=== PATIENT | male | born 1980 | race Caucasian/White ===

== ENCOUNTER 2017-04-18 05:17 | Inpatient (IN) | payer OTHER ==
[2017-04-18] VITALS (18 sets, daily range): BP systolic 96–141; BP diastolic 53–87; PULSE 103–133; RESP 16; TEMP 97.6–101.1; O2SAT 98–100
[~2017-04-18] VITALS: Ht 175.3 cm; Wt 73.8 kg
[2017-04-18] MEDS ORDERED: PROPOFOL 1000 MG/100 ML INJ 100 ML ONE ×2 (05:28→08:16)
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
[2017-04-18 06:17] LABS: BASOPHIL # 0.2 TH/MM3 (0-0.2); BASOPHIL % 0.6 % (0.0-2.0); EOSINOPHIL # 0.6 TH/MM3 (0-0.4); EOSINOPHIL % 1.8 % (0.0-4.0); HEMATOCRIT 44.8 % (39.0-51.0); I-STAT POTASSIUM 3.6 MMOL/L (3.5-4.9); LYMPH % 32.7 % (9.0-44.0); LYMPHOCYTE # 11.6 TH/MM3 (1.0-4.8); MEAN CELL VOLUME 85.8 FL (80.0-100.0); MEAN CORPUSCULAR HEMOGLOBIN 28.6 PG (27.0-34.0); MEAN CORPUSCULAR HGB CONC 33.3 % (32.0-36.0); MONO % 5.6 % (0.0-8.0); NEUT % 59.3 % (16.0-70.0); PLATELET COUNT 400 TH/MM3 (150-450); RED BLOOD COUNT 5.22 MIL/MM3 (4.50-5.90); RED CELL DISTRIBUTION WIDTH 13.2 % (11.6-17.2); WHITE BLOOD COUNT 35.4 TH/MM3 (4.0-11.0)
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
[2017-04-18 06:21] LABS: HEMO FLAGS AUTO DIFF
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
[2017-04-18 06:28] LABS: APTT (PATIENT) 23.7 SEC (24.3-30.1); PROTHROMBIN TIME - PATIENT 11.1 SEC (9.8-11.6)
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
[2017-04-18] MEDS ORDERED: MORPHINE SULFATE 8 MG/ML INJ ONE (06:34)
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
[2017-04-18] MEDS ORDERED: IOHEXOL 350 MG/ML 10 ML VIAL (for RAD DIAG) IVCONTRAST ONE (06:40)
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
[2017-04-18] MEDS ORDERED: MISCELLANEOUS NURSING INFORMATION XX SCH (06:45)
[2017-04-18] MEDS ORDERED: ONDANSETRON HCL 4 MG/2 ML VIAL IV PUSH PRN (06:45)
[2017-04-18] MEDS ORDERED: PROPOFOL 1000 MG/100 ML INJ 100 ML IV PRN (06:45)
[2017-04-18] MEDS ORDERED: BISACODYL 10 MG SUPP RECTAL PRN (06:45)
[2017-04-18] MEDS ORDERED: CHLORHEXIDINE GLUCONATE 2 % 1 PACK (2 CLOTHS) TOP PRN (06:45)
[2017-04-18] MEDS ORDERED: SENNOSIDES 8.6 MG TAB PO PRN (06:45)
[2017-04-18] MEDS ORDERED: MAGNESIUM HYDROXIDE SUSP 30 ML CUP PO PRN (06:45)
[2017-04-18] MEDS ORDERED: LACTULOSE SYRUP 20 GM/30 ML CUP PO PRN (06:45)
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
[2017-04-18 07:20] LABS: BANDS 10 % (0-6); METAMYELOCYTES 2 % (0-1); NEUTROPHIL # MANUAL DIFF 22.3 TH/MM3 (1.8-7.7); POLYS (SEG NEUTROPHILS) 51 % (16-70); WBC DIFF SAMPLE 100
[2017-04-18 07:21] LABS: PLATELET ESTIMATE SMEAR NORMAL (NORMAL); PLATELET MORPHOLOGY NORMAL (NORMAL); SCAN/DIFF FINAL DIFF MANUAL
[2017-04-18] MEDS ORDERED: SODIUM BICARBONATE 8.4% INJ 50 MEQ/50 ML SYR ONE (07:37)
[2017-04-18 07:38] LABS: BLOOD GAS BASE EXCESS -6.6 mmol/L (-2-2); BLOOD GAS CARBOXYHEMOGLOBIN 0.9 % (0-4); BLOOD GAS HCO3 20 mmol/L (22-26); BLOOD GAS METHEMOGLOBIN 1.7 % (0-2); BLOOD GAS O2 HGB SATURATION 97 % (90-100); BLOOD GAS OXYGEN CONTENT 16.3 Vol % (12.0-20.0); BLOOD GAS PCO2 47 mmHg (38-42); BLOOD GAS PO2 300 mmHg (61-120); BLOOD GAS TOTAL HGB 11.5 G/DL (12.0-16.0); CRITICAL VALUE YES; TEMP CORR TO 98.6
[2017-04-18 07:39] LABS: STAT YES
[2017-04-18 07:47] LABS: BASOPHIL % 0.3 % (0.0-2.0); EOSINOPHIL # 0.1 TH/MM3 (0-0.4); EOSINOPHIL % 0.4 % (0.0-4.0); HEMATOCRIT 34.6 % (39.0-51.0); HEMO FLAGS DIFF FINAL; LYMPHOCYTE # 2.3 TH/MM3 (1.0-4.8); MEAN CELL VOLUME 86.9 FL (80.0-100.0); MEAN CORPUSCULAR HGB CONC 33.4 % (32.0-36.0); MONO % 7.3 % (0.0-8.0); PLATELET COUNT 159 TH/MM3 (150-450); RED BLOOD COUNT 3.98 MIL/MM3 (4.50-5.90); RED CELL DISTRIBUTION WIDTH 13.7 % (11.6-17.2); WHITE BLOOD COUNT 16.6 TH/MM3 (4.0-11.0)
[2017-04-18 07:55] LABS: APTT (PATIENT) 24.3 SEC (24.3-30.1); INTERNATIONAL NORMALIZED RATIO 1.1 RATIO; PROTHROMBIN TIME - PATIENT 12.2 SEC (9.8-11.6)
[2017-04-18 08:00] LABS: BICARBONATE 21.5 MEQ/L (21.0-32.0); POTASSIUM 3.8 MEQ/L (3.5-5.1)
[2017-04-18 08:16] LABS: CALCIUM-PROTEIN CORRECTED 7.6 MG/DL (8.5-10.1)
[2017-04-18] MEDS: PROPOFOL 1000 MG/100 ML IV PRN ×3 (08:30→16:00)
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
[2017-04-18] MEDS: SODIUM CHLOR 0.9% 1000 ML INJ 1,000 ML IV SCH ×2 (08:45→16:36)
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
[2017-04-18] MEDS ORDERED: INSULIN HUMAN REGULAR 1,000 UNITS/10 ML VIAL ONE (08:51)
[2017-04-18] MEDS: DOCUSATE SODIUM 50 MG/SENNA 8.6 MG TAB PO SCH (09:00)
[2017-04-18] MEDS ORDERED: DO NOT ADM ANY ANTICOAGULANT DRUGS PRN (09:30)
--- NOTE | 2017-04-18 10:01 | RADRPT ---
EXAM DATE/TIME: 04/18/2017 09:03 [facility] COMPARISON: CHEST SINGLE AP, April 18, 2017, 5:21. INDICATIONS : Evaluate for post intubation. MEDICAL HISTORY : None. SURGICAL HISTORY : None. ENCOUNTER: Subsequent ACUITY: 1 day PAIN SCORE: Non-responsive. LOCATION: Bilateral chest FINDINGS: ET tube, nasogastric tube and left chest tube in good position. No pneumothorax. Right clavicle fra cture.. CONCLUSION: Support apparatus in good position. No pneumothorax. Asif Guerra MD FACR on April 18, 2017 at 9:59 Board Certified Radiologist. This report was verified electronically.
[2017-04-18] MEDS ORDERED: fentaNYL DRIP 250 ML IV PRN (10:15)
[2017-04-18] MEDS ORDERED: INSULIN REGULAR (IV INFUSION) 100 UNITS in SODIUM CHLORIDE 0.9% INJ 99 ML IV PRN (10:30)
[2017-04-18] MEDS ORDERED: DEXTROSE 50% IN WATER 50 ML VIAL(D50) IV PUSH PRN (10:45)
[2017-04-18] MEDS ORDERED: SODIUM CHLOR 0.9% 1000 ML INJ 1,000 ML IV ONE ×3 (10:45→16:45)
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
[2017-04-18] MEDS ORDERED: fentaNYL CITRATE 250 MCG/5 ML AMP IV PUSH ONE (11:00)
[2017-04-18] MEDS ORDERED: MISC INFORMATION OTHER ONE (11:00)
[2017-04-18] MEDS: ceFAZolin 2 GM PREMIX 50 ML IV SCH ×2 (11:08→17:00)
[2017-04-18] MEDS: FAMOTIDINE 20 MG/2 ML VIAL IV PUSH SCH (11:09)
[2017-04-18] MEDS: levETIRAcetam INJ 500 MG in SODIUM CHLORIDE 0.9% INJ 100 ML IV SCH ×2 (11:09→21:05)
[2017-04-18] MEDS: fentaNYL 2,500 MCG/NS 250 ML IV PRN (11:10)
[2017-04-18] MEDS ORDERED: PROPOFOL 200 MG/20 ML AMP IV ONE (12:00)
[2017-04-18] MEDS ORDERED: PHENYLEPH/NS 1000 MCG/10 ML SYR IV ONE ×2 (12:00→21:00)
[2017-04-18] MEDS ORDERED: NORMOSOL R INJ 3,000 ML IV ONE (12:00)
[2017-04-18] MEDS ORDERED: VECURONIUM BROMIDE 20 MG VIAL IV ONE ×2 (12:00→21:00)
[2017-04-18] MEDS ORDERED: ROCURONIUM INJ 50 MG/5 ML SYRINGE IV PUSH ONE (12:00)
[2017-04-18] MEDS ORDERED: STERILE WATER FOR INJECTION 20 ML VIAL IV ONE (12:00)
[2017-04-18] MEDS ORDERED: MIDAZOLAM HCL 2 MG/2 ML VIAL IV ONE (12:00)
[2017-04-18] MEDS ORDERED: SODIUM CHLORIDE 0.9% 20 ML VIAL IV ONE (12:00)
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
[2017-04-18] MEDS: INSULIN REGULAR (IV INFUSION) 100 UNITS in SODIUM CHLORIDE 0.9% INJ 99 ML IV PRN (13:02)
[2017-04-18] MEDS: ACETAMINOPHEN 1000 MG/100 ML 100 ML IV PRN (14:37)
[2017-04-18] MEDS: RESP: ALBUTEROL 2.5 MG/IPRATROPIUM 0.5 MG NEB (SCH) NEB ×2 (16:11→22:00)
[2017-04-18] MEDS ORDERED: MAGNESIUM OXIDE 400 MG TAB PO PRN (16:15)
[2017-04-18] MEDS ORDERED: MAGNESIUM SULFATE INJ 4 GM in SODIUM CHLORIDE 0.9% INJ 92 ML IV PRN (16:15)
[2017-04-18] MEDS ORDERED: MAGNESIUM SULFATE INJ 2 GM in SODIUM CHLORIDE 0.9% INJ 96 ML IV PRN (16:15)
[2017-04-18] MEDS ORDERED: POTASSIUM PHOSPHATE MONOBASIC 500 MG TAB PO/TUBE PRN (16:15)
[2017-04-18] MEDS ORDERED: POTASSIUM CHLOR 40 MEQ PREMIX 100 ML IV-CENTRAL PRN ×2 (16:15)
[2017-04-18] MEDS ORDERED: POTASSIUM CHLORIDE 20 MEQ PWD PACKET PO PRN (16:15)
[2017-04-18] MEDS ORDERED: POTASSIUM PHOSPHATE INJ 30 MMOL in SODIUM CHLOR 0.9% 250 ML INJ 250 ML IV PRN (16:15)
[2017-04-18] MEDS ORDERED: POTASSIUM PHOSPHATE MONOBASIC 500 MG TAB PO PRN (16:15)
[2017-04-18 16:48] LABS: HEMOGLOBIN A1a 1.2 %; HEMOGLOBIN A1b 1.4 %; HEMOGLOBIN Ao 74.9 %; HEMOGLOBIN F 1.7 %; HEMOGLOBIN LA1C 3.9 %; HEMOGLOBIN P3 5.2 %
[2017-04-18] MEDS ORDERED: VANCOMYCIN INJ 1,250 MG in SODIUM CHLOR 0.9% 250 ML INJ 250 ML IV ONE (17:00)
[2017-04-18] MEDS: PIPERACIL-TAZO 3.375 GM PREMIX 50 ML IV SCH (17:46)
[2017-04-18 18:27] LABS: MAGNESIUM 1.4 MG/DL (1.5-2.5)
[2017-04-18 19:04] LABS: BLOOD GAS BASE EXCESS -3.4 mmol/L (-2-2); BLOOD GAS CARBOXYHEMOGLOBIN 1.3 % (0-4); BLOOD GAS HCO3 21 mmol/L (22-26); BLOOD GAS METHEMOGLOBIN 1.4 % (0-2); BLOOD GAS O2 HGB SATURATION 97 % (90-100); BLOOD GAS OXYGEN CONTENT 13.1 Vol % (12.0-20.0); BLOOD GAS PCO2 35 mmHg (38-42); BLOOD GAS PO2 196 mmHg (61-120); BLOOD GAS TOTAL HGB 9.3 G/DL (12.0-16.0); CRITICAL VALUE NO; OXYGEN DEVICE VENTILATOR; TEMP CORR TO 98.6
[2017-04-18 19:05] LABS: DRAW SITE ART LINE; FIO2 40 %; ULNAR PULSE PRESENT
[2017-04-18 19:06] LABS: STAT NO
[2017-04-18] MEDS ORDERED: NEOMYCIN/POLYMYXIN 1 ML G.U. IRRIGANT ONE (20:39)
[2017-04-18] MEDS ORDERED: LACTATED RINGER'S 1000 ML INJ 1,000 ML IV ONE (21:00)
[2017-04-18] MEDS ORDERED: PHENYLEPHRINE HCL 10 MG/ML VIAL IV ONE (21:00)
[2017-04-18] MEDS: CHLORHEXIDINE 0.12% (ORAL KIT) 15 ML CUP MT SCH (21:03)
--- NOTE | 2017-04-18 21:13 | PD.OP ---
Operative Report Date of Surgery: Apr 18, 2017 Preoperative Diagnosis: (1) Traumatic brain injury 1. Traumatic brain injury 2. Small left frontal contusion 3. Left scalp contusion-laceration Postoperative Diagnosis: (1) Traumatic brain injury 1. Traumatic brain injury 2. Small left frontal contusion 3. Left scalp contusion-laceration Procedure: Right frontal twist drill for intracranial pressure monitor placement Anesthesia: 1% Xylocaine local infiltration. Intravenous sedation propofol and fentanyl Surgeon: Stefano Jo Electronic Gluing Machine Operator(s): None Operation and Findings: The procedure was felt to be medically necessary on an urgent basis. No family available for consent. The procedure was performed in the surgical intensive care unit. Appropriate timeout procedure was performed with all personnel present and in agreement The patient was given intravenous sedation during the procedure. The head of the bed was elevated 20 with the head and neck in neutral position. The right frontal area was shaved with clippers and sterilely prepped and draped. 1% Xylocaine with epinephrine was used for local infiltration over the small incision site which was made in the right frontal region approximately 1 cm anterior to the coronal suture in the mid pupillary line and carried sharply down to the cranium. The hand drill was used to place a single twist drill opening in the cranium and the dura was perforated with the 18-gauge spinal needle. The ICP bolt was secured to the cranium. The transducer was zeroed and placed intracranially and secured to the bolt. The patient's initial ICP was 15-16 mm water with good waveform. A sterile dressing was applied There is no significant bleeding The patient's neurologic exam remained stable following the procedure. Stefano Jo MD Apr 18, 2017 21:13
[2017-04-18] MEDS ORDERED: SODIUM CHLORIDE 23.4% INJ 240 MEQ in SYRINGE/BAG 1 EA IV ONE (21:15)
--- NOTE | 2017-04-18 22:21 | RADRPT ---
EXAM DATE/TIME: 04/18/2017 21:21 [place] COMPARISON: CT BRAIN W/O CONTRAST, April 18, 2017, 6:01. INDICATIONS : Status post head surgery. RADIATION DOSE: 65.60 CTDIvol (mGy) MEDICAL HISTORY : Non-responsive. SURGICAL HISTORY : Non-responsive. ENCOUNTER: Initial ACUITY: 1 day PAIN SCALE: Non-responsive LOCATION: Bilateral head TECHNIQUE: Multiple contiguous axial images were obtained of the head. Using automated exposure control and adj ustment of the mA and/or kV according to patient size, radiation dose was kept as low as reasonably a chievable to obtain optimal diagnostic quality images. DICOM format image data is available electro nically for review and comparison. FINDINGS: CEREBRUM: The ventricles are normal for age. Stable 1 cm parenchymal hemorrhage in the superior aspect of the l eft frontal lobe. Interval placement of a right frontoparietal pressure monitoring device. POSTERIOR FOSSA: The cerebellum and brainstem are intact. The 4th ventricle is midline. The cerebellopontine angle i s unremarkable. EXTRACRANIAL: Stable, extensive opacification of paranasal sinuses with air-fluid levels in the maxillary antra and sphenoid sinuses. Apparent cochlear implant in the left temporal occipital region. SKULL: The calvaria is intact. No evidence of skull fracture. Interval repair of the extensive left scalp t rauma CONCLUSION: 1. Stable 1 cm parenchymal hemorrhage in the left high frontal lobe. No mass effect or new hemorrhage . 2. Interval placement of a pressure monitoring bolt in the right frontoparietal region. 3. Stable opacification of the paranasal sinuses. Interval repair of left scalp trauma. Fredy Orozco MD on April 18, 2017 at 22:15 Board Certified Radiologist. This report was verified electronically.
[2017-04-18] MEDS ORDERED: NEOMYCIN/POLYMYXIN 1 ML G.U. IRRIGANT IRRIGATION ONE (22:42)
[2017-04-19] VITALS (23 sets, daily range): BP systolic 120–150; BP diastolic 50–74; PULSE 74–98; RESP 16–20; TEMP 98.6–100.2; O2SAT 99–100
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
[2017-04-19] MEDS ORDERED: IOHEXOL 350 MG/ML 10 ML VIAL (for RAD DIAG) IVCONTRAST ONE (00:58)
--- NOTE | 2017-04-19 01:26 | RADRPT ---
EXAM DATE/TIME: 04/19/2017 00:45 [facility] COMPARISON: CT BRAIN W/O CONTRAST, April 18, 2017, 21:21. INDICATIONS : Change in ICP. IV CONTRAST: 75 cc Omnipaque 350 (iohexol) IV ; Cumulative dose for multiple exams. RADIATION DOSE: 18.72 CTDIvol (mGy) ; Combined studies MEDICAL HISTORY : Hypertension. SURGICAL HISTORY : Cochlear implant. Ventriculostomy. ENCOUNTER: Initial ACUITY: 2 days PAIN SCALE: Non-responsive LOCATION: cranial TECHNIQUE: Volumetric scanning was performed using a multi-row detector CT scanner. The data was post processed with a variety of visualization algorithms including full volume maximum intensity projection, multi -planar sliding thin slab reformation, curved planar reformation, and surface rendering techniques. Using automated exposure control and adjustment of the mA and/or kV according to patient size, radiat ion dose was kept as low as reasonably achievable to obtain optimal diagnostic quality images. DICO M format image data is available electronically for review and comparison. FINDINGS: There is excellent visualization of the major intracranial arteries out to the second-order branch ve ssels. There is no evidence for aneurysm, vessel truncation or stenosis, and no evidence for vascula r malformation. There is a ventriculostomy tube in place from the right frontal approach extending into the right lat eral ventricle and then into the third ventricle. CONCLUSION: Negative CTA of the intracranial circulation. Jonathan Henry MD on April 19, 2017 at 1:21 Board Certified Radiologist. This report was verified electronically.
--- NOTE | 2017-04-19 01:28 | RADRPT ---
EXAM DATE/TIME: 04/19/2017 00:45 [facility] COMPARISON: No previous studies available for comparison. INDICATIONS : Change in ICP. IV CONTRAST: 75 cc Omnipaque 350 (iohexol) IV ; Cumulative dose for multiple exams. RADIATION DOSE: 18.72 CTDIvol (mGy) ; Combined studies MEDICAL HISTORY : Hypertension. SURGICAL HISTORY : Cochlear implant. ENCOUNTER: Initial ACUITY: 1 day PAIN SCALE: Non-responsive LOCATION: neck Elevated flow velocities and ICA/CCA ratios have been found to correlate with increased degrees of vessel stenosis, calculated as percentage of diameter relative to a normal segment of distal ICA/CCA. TECHNIQUE: Volumetric scanning was performed using a multirow detector CT scanner. The data was post processed with a variety of visualization algorithms including full-volume maximum intensity projection, multip lanar sliding thin-slab reformation, curved-planar reformation, and surface-rendering techniques. Us ing automated exposure control and adjustment of the mA and/or kV according to patient size, radiatio n dose was kept as low as reasonably achievable to obtain optimal diagnostic quality images. DICOM f ormat image data is available electronically for review and comparison. FINDINGS: AORTIC ARCH: There is a three-vessel origin of the great vessels from the aorta. No evidence of ostial narrowing. RIGHT CAROTID: The common carotid artery is intact. The carotid bulb has a normal configuration without ulceration o r narrowing. The internal carotid artery lumen is smooth without stenosis. The external carotid abena ry is intact. LEFT CAROTID: The common carotid artery is intact. The carotid bulb has a normal configuration without ulceration or narrowing. The internal carotid artery lumen is smooth without stenosis. The external carotid ar chaim is intact. VERTEBRALS: The vertebral arteries have a symmetric diameter. No stenotic lesions are seen. CONCLUSION: Normal examination. Jonathan Henry MD on April 19, 2017 at 1:25 Board Certified Radiologist. This report was verified electronically.
[2017-04-19] MEDS: DOCUSATE SODIUM 50 MG/SENNA 8.6 MG TAB PO SCH ×3 (01:52→20:23)
[2017-04-19] MEDS: FAMOTIDINE 20 MG/2 ML VIAL IV PUSH SCH ×3 (01:52→20:23)
[2017-04-19] MEDS: PIPERACIL-TAZO 3.375 GM PREMIX 50 ML IV SCH ×4 (01:53→17:00)
[2017-04-19] MEDS ORDERED: PHENYLEPHRINE HCL 10 MG/ML VIAL ONE ×3 (02:18→04:58)
[2017-04-19] MEDS: fentaNYL 2,500 MCG/NS 250 ML IV PRN ×3 (02:32→20:25)
[2017-04-19] MEDS ORDERED: PHENYLEPHRINE 40 MG in D5W 500 ML IV PRN (02:45)
[2017-04-19] MEDS ORDERED: FOSPHENYTOIN INJ 1,000 MGPE in SODIUM CHLORIDE 0.9% INJ 50 ML IV ONE (02:45)
[2017-04-19 02:51] LABS: BLOOD GAS BASE EXCESS -3.4 mmol/L (-2-2); BLOOD GAS CARBOXYHEMOGLOBIN 1.4 % (0-4); BLOOD GAS HCO3 22 mmol/L (22-26); BLOOD GAS METHEMOGLOBIN 1.2 % (0-2); BLOOD GAS O2 HGB SATURATION 96 % (90-100); BLOOD GAS OXYGEN CONTENT 14.2 Vol % (12.0-20.0); BLOOD GAS PCO2 50 mmHg (38-42); BLOOD GAS PO2 125 mmHg (61-120); BLOOD GAS TOTAL HGB 10.4 G/DL (12.0-16.0); TEMP CORR TO 98.6
[2017-04-19 02:52] LABS: CRITICAL VALUE YES; OXYGEN DEVICE VENTILATOR
[2017-04-19 02:53] LABS: DRAW SITE ART LINE; FIO2 40 %; STAT NO; VENT SETTINGS PRVC/AC
[2017-04-19] MEDS: PROPOFOL 1000 MG/100 ML IV PRN ×6 (03:00→20:26)
[2017-04-19] MEDS: RESP: ALBUTEROL 2.5 MG/IPRATROPIUM 0.5 MG NEB (SCH) NEB ×4 (03:35→19:48)
[2017-04-19] MEDS: ceFAZolin 2 GM PREMIX 50 ML IV SCH (03:37)
[2017-04-19] MEDS: SODIUM CHLOR 0.9% 1000 ML INJ 1,000 ML IV SCH (03:38)
[2017-04-19 03:49] LABS: AUTOMATED NEUTROPHIL # 9.9 TH/MM3 (1.8-7.7); BASOPHIL # 0.1 TH/MM3 (0-0.2); BASOPHIL % 0.4 % (0.0-2.0); EOSINOPHIL # 0.1 TH/MM3 (0-0.4); EOSINOPHIL % 0.7 % (0.0-4.0); HEMATOCRIT 29.3 % (39.0-51.0); HEMO FLAGS DIFF FINAL; LYMPH % 28.7 % (9.0-44.0); LYMPHOCYTE # 4.8 TH/MM3 (1.0-4.8); MEAN CELL VOLUME 84.5 FL (80.0-100.0); MEAN CORPUSCULAR HEMOGLOBIN 29.2 PG (27.0-34.0); MEAN CORPUSCULAR HGB CONC 34.6 % (32.0-36.0); MONO % 10.8 % (0.0-8.0); NEUT % 59.4 % (16.0-70.0); PLATELET COUNT 206 TH/MM3 (150-450); RED BLOOD COUNT 3.46 MIL/MM3 (4.50-5.90); RED CELL DISTRIBUTION WIDTH 13.4 % (11.6-17.2); WHITE BLOOD COUNT 16.6 TH/MM3 (4.0-11.0)
[2017-04-19] MEDS: CHLORHEXIDINE GLUCONATE 2 % 1 PACK (2 CLOTHS) TOP SCH (04:00)
[2017-04-19 04:33] LABS: BICARBONATE 23.1 MEQ/L (21.0-32.0); POTASSIUM 3.4 MEQ/L (3.5-5.1)
[2017-04-19 04:52] LABS: CALCIUM-PROTEIN CORRECTED 8.1 MG/DL (8.5-10.1)
[2017-04-19 05:25] LABS: BLOOD GAS BASE EXCESS -3.2 mmol/L (-2-2); BLOOD GAS CARBOXYHEMOGLOBIN 1.5 % (0-4); BLOOD GAS HCO3 20 mmol/L (22-26); BLOOD GAS METHEMOGLOBIN 1.3 % (0-2); BLOOD GAS O2 HGB SATURATION 97 % (90-100); BLOOD GAS OXYGEN CONTENT 13.7 Vol % (12.0-20.0); BLOOD GAS PCO2 29 mmHg (38-42); BLOOD GAS PO2 146 mmHg (61-120); BLOOD GAS TOTAL HGB 9.9 G/DL (12.0-16.0); CRITICAL VALUE NO; OXYGEN DEVICE VENTILATOR; TEMP CORR TO 98.6
[2017-04-19 05:27] LABS: DRAW SITE ART LINE; FIO2 40 %; STAT NO; VENT SETTINGS PRVC/AC
--- NOTE | 2017-04-19 05:40 | RADRPT ---
EXAM DATE/TIME: 04/19/2017 04:50 [facility] COMPARISON: CHEST SINGLE AP, April 18, 2017, 9:03. INDICATIONS : Short of breath. MEDICAL HISTORY : Hypertension. SURGICAL HISTORY : None. ENCOUNTER: Subsequent ACUITY: 2 days PAIN SCORE: Non-responsive. LOCATION: Bilateral chest FINDINGS: ET tube, NG tube and left chest tube are well placed. A pneumothorax is not seen. The lungs are gross ly clear. There is fracturing of the mid left clavicle. CONCLUSION: Left chest tube without pneumothorax seen. Jonathan Henry MD on April 19, 2017 at 5:38 Board Certified Radiologist. This report was verified electronically.
--- NOTE | 2017-04-19 05:46 | RADRPT ---
EXAM DATE/TIME: 04/19/2017 04:54 [facility] COMPARISON: WRIST RIGHT LIMITED(AP & LAT), April 18, 2017, 5:21. INDICATIONS : Right wrist pain. MEDICAL HISTORY : Hypertension. SURGICAL HISTORY : None. ENCOUNTER: Initial ACUITY: 2 days PAIN SCORE: Non-responsive. LOCATION: Right wrist. FINDINGS: 2 wires are seen through the base of the first metacarpal fracture. Multiple clips are seen in the sk in. The previously seen foreign bodies have been removed. CONCLUSION: Status post ORIF of a fracture the proximal aspect of the first metacarpal and removal of foreign mat erial. Jonathan Henry MD on April 19, 2017 at 5:43 Board Certified Radiologist. This report was verified electronically.
[2017-04-19] MEDS ORDERED: PHENYLEPHRINE INJ 40 MG in SODIUM CHLORID 0.9% 500 ML INJ 496 ML IV PRN (06:45)
[2017-04-19] MEDS: POTASSIUM CHLOR 20 MEQ PREMIX 100 ML IV PRN (06:47)
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
[2017-04-19] MEDS ORDERED: 3% SALINE INJ 250 ML IV ONE (07:00)
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
[2017-04-19] MEDS ORDERED: TERBUTALINE INJ 1 MG/ML AMP SQ PRN (07:45)
[2017-04-19] MEDS ORDERED: NOREPINEPHRINE INJ 4 MG in SODIUM CHLOR 0.9% 250 ML INJ 246 ML IV PRN (07:45)
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
--- NOTE | 2017-04-19 07:59 | RADRPT ---
EXAM DATE/TIME: 04/19/2017 07:33 [facility] COMPARISON: CHEST SINGLE AP, April 19, 2017, 4:50. INDICATIONS : Post central line placement. MEDICAL HISTORY : Hypertension. SURGICAL HISTORY : None. ENCOUNTER: Subsequent ACUITY: 1 day PAIN SCORE: Non-responsive. LOCATION: Bilateral chest FINDINGS: Stable ETT and NGT coursing down the GE junction. Interval placement of left IJ central line with tip in the mid SVC. Left-sided apical chest tube in stable position. No significant pneumothorax. Remain nita of exam is unchanged. CONCLUSION: 1. Interval placement of left internal jugular central line with tip in the mid SVC. 2. Stable left apical chest tube without significant pneumothorax. 3. Remainder of the exam is unchanged. Den Gooden MD on April 19, 2017 at 7:55 Board Certified Radiologist. This report was verified electronically.
[2017-04-19] MEDS ORDERED: INFLUENZA VIRUS VACCINE (QUADRIVALENT) 0.5 ML SYR IM ONE (09:00)
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
[2017-04-19] MEDS: FOSPHENYTOIN SODIUM 100 MG PE/2 ML VIAL IV SCH ×3 (10:08→22:23)
[2017-04-19] MEDS: CHLORHEXIDINE 0.12% (ORAL KIT) 15 ML CUP MT SCH ×2 (10:09→20:22)
[2017-04-19] MEDS: levETIRAcetam INJ 500 MG in SODIUM CHLORIDE 0.9% INJ 100 ML IV SCH ×2 (10:14→20:23)
[2017-04-19] MEDS: NS + KCL 40 MEQ INJ 1,000 ML IV SCH ×3 (10:37→20:24)
--- NOTE | 2017-04-19 12:49 | PD.PROCEDR ---
Central Line Procedure REASON FOR PROCEDURE Central venous access PROCEDURE PERFORMED Central line placement: LIJ central line placement CONSENT Emergency procedures ANESTHESIA Local injection of 1% Lidocaine DESCRIPTION OF THE PROCEDURE The patient was placed in supine, mild Trendelenburg position. The area was exposed and cleansed with ChloraPrep, times two. Large sterile drape was used to cover the patient, with the site exposed, under sterile conditions including cap, face mask, sterile gown, and sterile gloves. On single attempt, the introducer needle was inserted with negative pressure in syringe and venous flash was obtained. The guide wire was then advanced without any restriction and the needle was removed. The dilator was used without any complications. Using Seldinger technique the LIJ triple lumen catheter was advanced over the guide wire to a depth of 18 centimeters. The guide wire was removed. All ports were aspirated with dark venous blood return and flushed easily with sterile saline. All ports were capped. Antibiotic disc was placed around central line at puncture site. The central line was secured to the skin with two interrupted 2.0 silk sutures. The area was bandaged with sterile see- through central line bandage. RADIOLOGICAL DATA Ultrasound guidance was used to locate LIJ. Doppler/color flow was used to confirm venous flow. COMPLICATIONS: No apparent complications ESTIMATED BLOOD LOSS: Less than 1 cc. Barbara Castillo MD Apr 19, 2017 12:49
--- NOTE | 2017-04-19 14:54 | RADRPT ---
EXAM DATE/TIME: 04/19/2017 13:58 [place] COMPARISON: CT BRAIN W/O CONTRAST, April 18, 2017, 21:21. INDICATIONS : Increased intracranial pressure. RADIATION DOSE: 62.30 CTDIvol (mGy) ; Tabletop CT Head MEDICAL HISTORY : Diabetes mellitus type 2. Hypertension. SURGICAL HISTORY : Cochlear implant. ENCOUNTER: Subsequent ACUITY: 1 day PAIN SCALE: Non-responsive LOCATION: cranial TECHNIQUE: Multiple contiguous axial images were obtained of the head. Using automated exposure control and adj ustment of the mA and/or kV according to patient size, radiation dose was kept as low as reasonably a chievable to obtain optimal diagnostic quality images. DICOM format image data is available electro nically for review and comparison. FINDINGS: There has been interval placement of a right frontal ventriculostomy which crosses the frontal horn o f right lateral ventricle into the third ventricle. There's been slight interval decrease in ventricu lar diameter. An ICP bolt remains in place in the high convexity frontal region. There is a tiny focu s of hemorrhage adjacent to the bolt. A small stable parenchymal hemorrhage in the contralateral left frontal region is again noted. There is a small focus of hemorrhage in the right ambient cistern whi ch was not noted previously. CONCLUSION: Interval ventriculostomy placement. Small focus of hemorrhage in the region of the right ambient cistern is new. Otherwise grossly stable brain appearance Jonathan Gupta MD on April 19, 2017 at 14:43 Board Certified Radiologist. This report was verified electronically.
[2017-04-19 15:38] LABS: MAGNESIUM 1.7 MG/DL (1.5-2.5); POTASSIUM 3.6 MEQ/L (3.5-5.1)
[2017-04-19 16:24] LABS: BLOOD GAS BASE EXCESS -5.2 mmol/L (-2-2); BLOOD GAS CARBOXYHEMOGLOBIN 1.3 % (0-4); BLOOD GAS HCO3 19 mmol/L (22-26); BLOOD GAS O2 HGB SATURATION 97 % (90-100); BLOOD GAS PCO2 33 mmHg (38-42); BLOOD GAS PO2 147 mmHG (61-120); BLOOD GAS TOTAL HGB 10.8 G/DL (12.0-16.0); CRITICAL VALUE NO; DRAW SITE ART LINE; FIO2 40 %; OXYGEN DEVICE VENTILATOR; VENT SETTINGS 16/550/1.0/+5
[2017-04-19 16:25] LABS: NUMBER OF ARTERIAL PUNCTURES 0; STAT NO; ULNAR PULSE PRESENT
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
[2017-04-19] MEDS: NOREPINEPHRINE INJ 4 MG in SODIUM CHLOR 0.9% 250 ML INJ 246 ML IV PRN (17:18)
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
[2017-04-19] MEDS: INSULIN REGULAR (IV INFUSION) 100 UNITS in SODIUM CHLORIDE 0.9% INJ 99 ML IV PRN (17:55)
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
[2017-04-19] MEDS: ARTIFICIAL TEARS OPTH OINT 3.5 APPLIC/3.5 GM TUBO EACH EYE SCH (20:22)
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
[2017-04-20] VITALS (19 sets, daily range): BP systolic 104–150; BP diastolic 57–69; PULSE 80–145; RESP 16–18; TEMP 97.3–101; O2SAT 96–100
[2017-04-20] MEDS: PIPERACIL-TAZO 3.375 GM PREMIX 50 ML IV SCH ×5 (00:35→22:03)
[2017-04-20] MEDS: NOREPINEPHRINE INJ 4 MG in SODIUM CHLOR 0.9% 250 ML INJ 246 ML IV PRN ×2 (00:40→09:48)
[2017-04-20] MEDS: PROPOFOL 1000 MG/100 ML IV PRN ×5 (00:46→17:06)
[2017-04-20] MEDS: RESP: ALBUTEROL 2.5 MG/IPRATROPIUM 0.5 MG NEB (SCH) NEB ×4 (03:13→20:33)
[2017-04-20 03:30] LABS: AUTOMATED NEUTROPHIL # 5.6 TH/MM3 (1.8-7.7); BASOPHIL # 0.1 TH/MM3 (0-0.2); BASOPHIL % 0.6 % (0.0-2.0); EOSINOPHIL # 0.4 TH/MM3 (0-0.4); EOSINOPHIL % 4.2 % (0.0-4.0); HEMATOCRIT 24.8 % (39.0-51.0); HEMO FLAGS DIFF FINAL; LYMPH % 26.3 % (9.0-44.0); LYMPHOCYTE # 2.5 TH/MM3 (1.0-4.8); MEAN CELL VOLUME 85.5 FL (80.0-100.0); MEAN CORPUSCULAR HEMOGLOBIN 29.4 PG (27.0-34.0); MEAN CORPUSCULAR HGB CONC 34.3 % (32.0-36.0); MONO % 8.8 % (0.0-8.0); NEUT % 60.1 % (16.0-70.0); PLATELET COUNT 159 TH/MM3 (150-450); RED CELL DISTRIBUTION WIDTH 13.6 % (11.6-17.2); WHITE BLOOD COUNT 9.3 TH/MM3 (4.0-11.0)
[2017-04-20 03:59] LABS: BICARBONATE 21.1 MEQ/L (21.0-32.0); CALCIUM-PROTEIN CORRECTED 8.3 MG/DL (8.5-10.1); MAGNESIUM 1.8 MG/DL (1.5-2.5); POTASSIUM 3.7 MEQ/L (3.5-5.1); TOTAL BILIRUBIN ADULT 0.7 MG/DL (0.2-1.0)
[2017-04-20] MEDS: CHLORHEXIDINE GLUCONATE 2 % 1 PACK (2 CLOTHS) TOP SCH (04:00)
--- NOTE | 2017-04-20 04:14 | RADRPT ---
EXAM DATE/TIME: 04/20/2017 02:53 [facility] COMPARISON: CHEST SINGLE AP, April 19, 2017, 7:33. INDICATIONS : Shortness of breath. MEDICAL HISTORY : Hypertension. SURGICAL HISTORY : None. ENCOUNTER: Subsequent ACUITY: 3 days PAIN SCORE: Non-responsive. LOCATION: Bilateral chest FINDINGS: There is a left chest tube. No pneumothorax is seen. ET tube is 4.5 cm from the guerita. The NG tube i s directed into the stomach. The heart size is normal. There is increased density at the left base wi th silhouetting the left hemidiaphragm. The right lung is clear. CONCLUSION: 1. Left chest tube without a pneumothorax seen. 2. Left lower lobe atelectasis or consolidation. Jonathan Henry MD on April 20, 2017 at 4:12 Board Certified Radiologist. This report was verified electronically.
[2017-04-20 05:33] LABS: BLOOD GAS BASE EXCESS -4.7 mmol/L (-2-2); BLOOD GAS CARBOXYHEMOGLOBIN 1.5 % (0-4); BLOOD GAS HCO3 19 mmol/L (22-26); BLOOD GAS METHEMOGLOBIN 1.1 % (0-2); BLOOD GAS O2 HGB SATURATION 97 % (90-100); BLOOD GAS PCO2 31 mmHg (38-42); BLOOD GAS PO2 137 mmHg (61-120); BLOOD GAS TOTAL HGB 8.6 G/DL (12.0-16.0); CRITICAL VALUE NO; DRAW SITE ALINE; FIO2 40 %; OXYGEN DEVICE VENTILATOR; STAT NO; TEMP CORR TO 98.6; ULNAR PULSE PRESENT; VENT SETTINGS PRVC16/550/1.0/+5
[2017-04-20] MEDS: FOSPHENYTOIN SODIUM 100 MG PE/2 ML VIAL IV SCH ×3 (05:57→22:03)
[2017-04-20] MEDS: SODIUM PHOSPHATE INJ 30 MMOL in SODIUM CHLOR 0.9% 250 ML INJ 240 ML IV PRN (05:57)
[2017-04-20] MEDS: NS + KCL 40 MEQ INJ 1,000 ML IV SCH ×3 (06:33→22:02)
[2017-04-20] MEDS: fentaNYL 2,500 MCG/NS 250 ML IV PRN (08:36)
[2017-04-20] MEDS: DOCUSATE SODIUM 50 MG/SENNA 8.6 MG TAB PO SCH ×2 (08:37→22:04)
[2017-04-20] MEDS: FAMOTIDINE 20 MG/2 ML VIAL IV PUSH SCH ×2 (08:37→22:04)
[2017-04-20] MEDS: levETIRAcetam INJ 500 MG in SODIUM CHLORIDE 0.9% INJ 100 ML IV SCH ×2 (08:37→22:03)
[2017-04-20] MEDS: ARTIFICIAL TEARS OPTH OINT 3.5 APPLIC/3.5 GM TUBO EACH EYE SCH ×2 (08:38→21:00)
[2017-04-20] MEDS: CHLORHEXIDINE 0.12% (ORAL KIT) 15 ML CUP MT SCH ×2 (08:38→20:00)
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
[2017-04-20] MEDS ORDERED: GLUCAGON 1 MG/ML VIAL OTHER PRN (09:00)
[2017-04-20] MEDS ORDERED: DEXTROSE 50% IN WATER 50 ML VIAL(D50) IV PUSH PRN (09:00)
[2017-04-20] MEDS ORDERED: FUROSEMIDE 40 MG/4 ML VIAL IV PUSH ONE (09:30)
[2017-04-20] MEDS: INSULIN ASPART SUPPLEMENTAL SCALE SQ SCH ×2 (12:00→18:00)
[2017-04-20] MEDS: ACETAMINOPHEN 1000 MG/100 ML 100 ML IV PRN ×2 (12:13→18:29)
[2017-04-20] MEDS: 3% SALINE INJ 500 ML IV SCH (14:22)
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
[2017-04-20] MEDS ORDERED: MIDAZOLAM HCL 5 MG/ML VIAL (1 ML) IV ONE (17:30)
[2017-04-20 18:46] LABS: BLOOD GAS BASE EXCESS -5.9 mmol/L (-2-2); BLOOD GAS CARBOXYHEMOGLOBIN 1.5 % (0-4); BLOOD GAS HCO3 19 mmol/L (22-26); BLOOD GAS METHEMOGLOBIN 1.1 % (0-2); BLOOD GAS O2 HGB SATURATION 92 % (90-100); BLOOD GAS OXYGEN CONTENT 11.5 Vol % (12.0-20.0); BLOOD GAS PCO2 40 mmHg (38-42); BLOOD GAS PO2 72 mmHg (61-120); BLOOD GAS TOTAL HGB 8.9 G/DL (12.0-16.0); CRITICAL VALUE NO
[2017-04-20 18:47] LABS: DRAW SITE ART LINE; FIO2 10 %; NUMBER OF ARTERIAL PUNCTURES 0; OXYGEN DEVICE PRVC/16/550/1.0/+5; STAT NO; TEMP CORR TO 40; ULNAR PULSE PRESENT
--- NOTE | 2017-04-20 19:59 | HHI.PR ---
Review/Management Diagnosis/Plan: (1) Intracranial hemorrhage ICD Codes: I62.9 - Nontraumatic intracranial hemorrhage, unspecified Status: Acute (2) Trauma ICD Codes: T14.90XA - Injury, unspecified, initial encounter Status: Acute Daily Summary 04/20 sedated and at times shivering like motor activity possible due to reduction in sedation no overt seizures spoke to staff spoke to family dph 9.5 will follow eeg and dph levels unable to fully neuro eval due to acute injuries and sedation Subjective Subjective Comments no overt seizures Active Medications Current Medications Medications (Trade) Dose Ordered Sig/Court Route Start Time Stop Time Status Last Admin (Pepcid Inj) 20 mg Q12HR IV PUSH 04/18/17 09:00 04/20/17 08:37 (Zofran Inj) 4 mg Q6H PRN IV PUSH 04/18/17 06:45 Miscellaneous Information 1 Q361D XX 04/18/17 06:45 04/18/17 06:45 (Chlorhexidine 2% Cloth) 3 pack Taper DAILY@04 TOP 04/19/17 04:00 04/15/18 03:59 (Chlorhexidine 2% Cloth) 3 pack UNSCH PRN TOP 04/18/17 06:45 (Toshia-Colace) 1 tab BID PO 04/18/17 09:00 04/20/17 08:37 (Milk Of Magnesia Liq) 30 ml Q12H PRN PO 04/18/17 06:45 (Senokot) 17.2 mg Q12H PRN PO 04/18/17 06:45 (Dulcolax Supp) 10 mg DAILY PRN RECTAL 04/18/17 06:45 (Lactulose Liq) 30 ml DAILY PRN PO 04/18/17 06:45 Levetriacetam 500 mg/Sodium Chloride 105 ml @ 420 mls/hr Q12HR IV 04/18/17 09:00 04/20/17 08:37 (D50w (Vial) Inj) 50 ml UNSCH PRN IV PUSH 04/18/17 10:45 Propofol 100 ml @ 2.652 mls/ hr TITRATE PRN IV 04/18/17 11:00 04/20/17 17:06 (Duoneb Neb) 1 ampule Q6HR NEB PRN NEB 04/18/17 12:30 (Peridex 0.12% Liq) 15 ml BID@08,20 MT 04/18/17 20:00 04/20/17 08:38 (Duoneb Neb) 1 ampule Q6HR NEB NEB 04/18/17 16:00 04/20/17 15:50 Acetaminophen 100 ml @ 400 mls/hr Q6H PRN IV 04/18/17 14:45 04/20/17 18:29 Potassium Chloride 100 ml @ 50 mls/hr Q2H PRN IV-CENTRAL 04/18/17 16:15 Potassium Chloride 100 ml @ 50 mls/hr Q2H PRN IV 04/18/17 16:15 Potassium Chloride 100 ml @ 25 mls/hr UNSCH PRN IV-CENTRAL 04/18/17 16:15 Potassium Chloride 100 ml @ 50 mls/hr Q2H PRN IV 04/18/17 16:15 04/19/17 06:47 Magnesium Sulfate 4 gm/Sodium Chloride 100 ml @ 50 mls/hr UNSCH PRN IV 04/18/17 16:15 (Mag-Ox) 800 mg UNSCH PRN PO 04/18/17 16:15 Magnesium Sulfate 2 gm/Sodium Chloride 100 ml @ 50 mls/hr UNSCH PRN IV 04/18/17 16:15 (K-Phos) 2,000 mg Q4H PRN PO 04/18/17 16:15 Sodium Phosphate 30 mmol/Sodium Chloride 250 ml @ 42 mls/hr UNSCH PRN IV 04/18/17 16:15 04/20/17 05:57 (K-Phos) 2,000 mg UNSCH PRN PO/TUBE 04/18/17 16:15 Potassium Phosphate 30 mmol/ Sodium Chloride 260 ml @ 42 mls/hr UNSCH PRN IV 04/18/17 16:15 (KCl Powder) 40 meq DAILY PRN PO 04/18/17 16:15 Piperacillin Sod/ Tazobactam Sod 50 ml @ 100 mls/hr Q6H IV 04/18/17 17:00 04/20/17 17:05 Phenylephrine HCl 40 mg/Sodium Chloride 500 ml @ 30 mls/hr TITRATE PRN IV 04/19/17 06:45 04/19/17 06:38 (Cerebyx Inj) 100 mgpe Q8HR IV 04/19/17 07:15 04/20/17 13:42 Potassium Chloride/Sodium Chloride 1,000 ml @ 125 mls/hr Q8H IV 04/19/17 07:30 04/20/17 17:05 (Brethine Inj) 1 mg UNSCH PRN SQ 04/19/17 07:45 (Lacrilube Opht Oint) 1 applic Q12HR EACH EYE 04/19/17 21:00 04/20/17 08:38 Norepinephrine Bitartrate 4 mg/ Sodium Chloride 250 ml @ 7.5 mls/hr TITRATE PRN IV 04/19/17 14:30 04/20/17 09:48 Sodium Chloride 500 ml @ 20 mls/hr CONTINUOUS IV 04/20/17 08:15 04/20/17 14:22 (D50w (Vial) Inj) 50 ml UNSCH PRN IV PUSH 04/20/17 09:00 (Glucagon Inj) 1 mg UNSCH PRN OTHER 04/20/17 09:00 (NovoLOG SUPPLEMENTAL SCALE) 1 Q6HR SQ 04/20/17 12:00 Fentanyl Citrate 250 ml @ 5 mls/hr TITRATE PRN IV 04/20/17 09:30 Allergies Allergies Coded Allergies MRI PRECAUTION (Verified Allergy, Unknown, 04/18/17) Exam I&O / VS 04/20/17 04/20/17 04/21/17 15:00 23:00 07:00 Intake Total 981 ml 310 ml Output Total 3242 ml Balance 981 ml -2932 ml Intake IV Total 981 ml 250 ml Tube Irrigant 60 ml Output Urine Total 2725 ml Gastric Drainage Total 200 ml Chest Tube Drainage Total 60 ml Drainage Total 257 ml # Bowel Movements 0 Vital Signs Date Time Temp Pulse Resp B/P (MAP) Pulse Ox O2 Delivery O2 Flow Rate FiO2 04/20/17 18:00 145 04/20/17 16:00 101.0 132 16 96 129/58 (81) 04/20/17 16:00 40 04/20/17 16:00 132 04/20/17 15:51 100 40 04/20/17 15:50 40 04/20/17 14:00 132 04/20/17 12:30 126 148/58 04/20/17 12:00 100.4 126 18 99 145/57 (86) 04/20/17 12:00 40 04/20/17 12:00 126 04/20/17 12:00 126 145/57 04/20/17 11:40 128 134/53 04/20/17 11:30 127 135/54 04/20/17 11:00 127 138/54 04/20/17 10:51 100 40 04/20/17 10:30 110 143/57 04/20/17 10:15 109 139/58 04/20/17 10:00 109 04/20/17 10:00 109 139/59 04/20/17 09:48 108 137/56 04/20/17 09:00 100 40 04/20/17 08:50 40 04/20/17 08:00 112 04/20/17 08:00 40 04/20/17 08:00 97.3 112 16 100 150/62 (91) 04/20/17 07:51 100 40 04/20/17 06:00 90 04/20/17 04:00 90 04/20/17 04:00 97.9 90 16 100 126/69 (88) 04/20/17 04:00 40 04/20/17 03:13 100 40 04/20/17 02:00 80 04/20/17 00:40 83 103/66 04/20/17 00:00 40 04/20/17 00:00 85 04/20/17 00:00 98.2 85 16 100 104/68 (80) 04/19/17 22:00 88 04/19/17 20:09 100 40 04/19/17 20:00 40 04/19/17 20:00 84 04/19/17 20:00 98.6 84 16 100 148/64 (92) Objective Micro and Labs Laboratory Tests Test 04/19/17 21:00 04/20/17 03:15 04/20/17 05:25 04/20/17 14:30 Sodium Level 149 148 146 Phenytoin (Dilantin) Level 9.5 White Blood Count 9.3 Red Blood Count 2.90 Hemoglobin 8.5 Hematocrit 24.8 Mean Corpuscular Volume 85.5 Mean Corpuscular Hemoglobin 29.4 Mean Corpuscular Hemoglobin Concent 34.3 Red Cell Distribution Width 13.6 Platelet Count 159 Mean Platelet Volume 8.0 Neutrophils (%) (Auto) 60.1 Lymphocytes (%) (Auto) 26.3 Monocytes (%) (Auto) 8.8 Eosinophils (%) (Auto) 4.2 Basophils (%) (Auto) 0.6 Neutrophils # (Auto) 5.6 Lymphocytes # (Auto) 2.5 Monocytes # (Auto) 0.8 Eosinophils # (Auto) 0.4 Basophils # (Auto) 0.1 CBC Comment DIFF FINAL Differential Comment Blood Urea Nitrogen 4 Creatinine 0.60 Random Glucose 169 Total Protein 4.9 Albumin 2.0 Calcium Level 7.1 Phosphorus Level 1.5 Magnesium Level 1.8 Alkaline Phosphatase 56 Aspartate Amino Transf (AST/SGOT) 43 Alanine Aminotransferase (ALT/SGPT) 29 Total Bilirubin 0.7 Potassium Level 3.7 Chloride Level 118 Carbon Dioxide Level 21.1 Anion Gap 9 Estimat Glomerular Filtration Rate 154 Protein Corrected Calcium 8.3 Blood Gas Puncture Site DENISE Blood Gas Patient Temperature 98.6 Blood Gas HCO3 19 Blood Gas Base Excess -4.7 Blood Gas Oxygen Saturation 97 Arterial Blood pH 7.40 Arterial Blood Partial Pressure CO2 31 Arterial Blood Partial Pressure O2 137 Arterial Blood Oxygen Content 12.0 Arterial Blood Carboxyhemoglobin 1.5 Arterial Blood Methemoglobin 1.1 Blood Gas Hemoglobin 8.6 Oxygen Delivery Device VENTILATOR Blood Gas Ventilator Setting PRVC16/550/1.0/+5 Blood Gas Inspired Oxygen 40 Test 04/20/17 18:32 Blood Gas Puncture Site ART LINE Blood Gas Patient Temperature 40 Blood Gas HCO3 19 Blood Gas Base Excess -5.9 Blood Gas Oxygen Saturation 92 Arterial Blood pH 7.31 Arterial Blood Partial Pressure CO2 40 Arterial Blood Partial Pressure O2 72 Arterial Blood Oxygen Content 11.5 Arterial Blood Carboxyhemoglobin 1.5 Arterial Blood Methemoglobin 1.1 Blood Gas Hemoglobin 8.9 Oxygen Delivery Device PRVC/16/550/1.0/+5 Blood Gas Inspired Oxygen 10 Date/Time Source Procedure Growth Status 04/19/17 03:55 Blood Peripheral Aerobic Blood Culture - Preliminary NO GROWTH IN 1 DAY Resulted 04/19/17 03:55 Blood Peripheral Anaerobic Blood Culture - Preliminary NO GROWTH IN 1 DAY Resulted 04/19/17 03:30 Sputum Endotracheal Gram Stain - Final Resulted 04/19/17 03:30 Sputum Culture - Preliminary Gram Negative Bjorn Resulted 04/18/17 14:30 Urine Catheterized Urine Urine Culture - Final NO GROWTH IN 48 HOURS. Complete Marky Colon MD Apr 20, 2017 19:59
[2017-04-20] MEDS: fentaNYL DRIP 250 ML IV PRN (22:05)
--- NOTE | 2017-04-20 23:42 | HHI.NSPN ---
History Chief Complaint: Unable to obtain due to patient's clinical condition. Interval History TBI S/P ICP and EVD Exam Results Vital Signs Date Time Temp Pulse Resp B/P (MAP) Pulse Ox O2 Delivery O2 Flow Rate FiO2 04/20/17 20:31 100 40 04/20/17 18:00 145 04/20/17 16:00 101.0 16 129/58 (81) 04/18/17 09:30 Mechanical Ventilator Intake and Output 04/20/17 04/20/17 04/21/17 08:00 16:00 00:00 Intake Total 1590 ml 981 ml 560 ml Output Total 2094 ml 3242 ml Balance -504 ml 981 ml -2682 ml Physical Examination GENERAL: Obtunded, sedated on propofol 50 mcg/kg/min. He does have fentanyl infusing at 200 mcg/hr. HEENT: ICP bolt & ventriculostomy insertion sites w/o any evident drainage, erythema or streaking. Left scalp laceration w/o any drainage, erythema or streaking approximated w/diallo w/Xeroform gauze covering wound, JAMEL drain on left side to bulb suction w/serosanguinous drainage. Swelling & ecchymosis to the face & eyelids. Pupils appear 2 mm nonreactive, bilateral lateral & medial subconjunctival haemorrhages. No otorrhea or rhinorrhea. Orally intubated. OGT. MUSCULOSKELETAL: No movement of extremities w/stimulation. No evident deformity or clubbing. Left clavicle region ecchymosis/contusion & abrasion. Left antecubital ecchymosis/contusion & abrasion. Left wrist arterial catheter insertion site w/intact dressing. Left hand dorsal 2nd digit abrasion. Small right shoulder ecchymosis/contusion. Right lateral arm ecchymosis/contusion. Right wrist & hand splint/cast. Right hand digit ecchymosis/contusion, swelling & abrasion. Left knee abrasion. Right groin w/negative pressure dressing. Right lateral knee superficial abrasion. Right distal lower leg ecchymosis/contusion. NEUROLOGICAL: Obtunded, sedated, GCS 3T (E1 V1T M1). No eye opening to noxious stimulation. Nonverbal, orally intubated. Does not follow any commands. Unable to assess sensation due to clinical condition. Moderate movement of extremities to local or central noxious stimulation. Ventriculostomy at 5 cm H2O pressure w/reddish CSF draining. 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
[2017-04-21] VITALS (18 sets, daily range): BP systolic 96–146; BP diastolic 48–71; PULSE 110–141; RESP 16; TEMP 99–100.2; O2SAT 97–100
[2017-04-21] MEDS: PROPOFOL 1000 MG/100 ML IV PRN ×3 (00:30→14:22)
[2017-04-21] MEDS: RESP: ALBUTEROL 2.5 MG/IPRATROPIUM 0.5 MG NEB (SCH) NEB ×4 (02:38→19:41)
[2017-04-21 03:22] LABS: BLOOD GAS BASE EXCESS -3.7 mmol/L (-2-2); BLOOD GAS CARBOXYHEMOGLOBIN 1.5 % (0-4); BLOOD GAS HCO3 21 mmol/L (22-26); BLOOD GAS METHEMOGLOBIN 0.9 % (0-2); BLOOD GAS O2 HGB SATURATION 97 % (90-100); BLOOD GAS OXYGEN CONTENT 11.2 Vol % (12.0-20.0); BLOOD GAS PCO2 36 mmHg (38-42); BLOOD GAS PO2 116 mmHg (61-120); BLOOD GAS TOTAL HGB 8.1 G/DL (12.0-16.0); CRITICAL VALUE NO; OXYGEN DEVICE VENTILATOR; TEMP CORR TO 98.6
[2017-04-21 03:23] LABS: DRAW SITE ART LINE; FIO2 40 %; STAT NO; VENT SETTINGS COMMENTS
[2017-04-21] MEDS: CHLORHEXIDINE GLUCONATE 2 % 1 PACK (2 CLOTHS) TOP SCH (04:00)
[2017-04-21 05:00] LABS: AUTOMATED NEUTROPHIL # 5.2 TH/MM3 (1.8-7.7); BASOPHIL % 0.5 % (0.0-2.0); EOSINOPHIL # 0.2 TH/MM3 (0-0.4); EOSINOPHIL % 2.5 % (0.0-4.0); HEMATOCRIT 21.1 % (39.0-51.0); HEMO FLAGS DIFF FINAL; LYMPH % 20.2 % (9.0-44.0); LYMPHOCYTE # 1.5 TH/MM3 (1.0-4.8); MEAN CELL VOLUME 85.7 FL (80.0-100.0); MEAN CORPUSCULAR HEMOGLOBIN 29.5 PG (27.0-34.0); MEAN CORPUSCULAR HGB CONC 34.4 % (32.0-36.0); MONO % 6.4 % (0.0-8.0); NEUT % 70.4 % (16.0-70.0); PLATELET COUNT 140 TH/MM3 (150-450); RED BLOOD COUNT 2.46 MIL/MM3 (4.50-5.90); RED CELL DISTRIBUTION WIDTH 13.6 % (11.6-17.2); WHITE BLOOD COUNT 7.4 TH/MM3 (4.0-11.0)
[2017-04-21 05:30] LABS: ALT (GPT) 22 U/L (12-78); ANION GAP 8 MEQ/L (5-15); AST (GOT) 26 U/L (15-37); BICARBONATE 22.2 MEQ/L (21.0-32.0); BLOOD UREA NITROGEN 5 MG/DL (7-18); CHLORIDE 120 MEQ/L (98-107); GLOMERULAR FILTRATION RATE 121 ML/MIN (>89); MAGNESIUM 1.6 MG/DL (1.5-2.5); POTASSIUM 3.7 MEQ/L (3.5-5.1); SODIUM (NA) 150 MEQ/L (136-145)
[2017-04-21 05:32] LABS: ALKALINE PHOSPHATASE 63 U/L (45-117); TOTAL BILIRUBIN ADULT 0.7 MG/DL (0.2-1.0)
[2017-04-21] MEDS: INSULIN ASPART SUPPLEMENTAL SCALE SQ SCH ×4 (06:00→18:00)
--- NOTE | 2017-04-21 06:17 | RADRPT ---
EXAM DATE/TIME: 04/21/2017 05:39 [facility] COMPARISON: CHEST SINGLE AP, April 20, 2017, 2:53. INDICATIONS : Respiratory distress. Follw up trauma. MEDICAL HISTORY : Diabetes mellitus type II. Hypertension SURGICAL HISTORY : None. ENCOUNTER: Subsequent ACUITY: 4 - 6 days PAIN SCORE: Non-responsive. LOCATION: Bilateral chest FINDINGS: The ET tube and NG tube, left internal jugular central line and left chest tube are well placed. A pn eumothorax is not seen. There is increased density at the bases bilaterally. There is silhouetting of the left hemidiaphragm. There is a left clavicle fracture. CONCLUSION: Bibasilar areas of consolidation or atelectasis. Jonathan Henry MD on April 21, 2017 at 6:14 Board Certified Radiologist. This report was verified electronically.
[2017-04-21] MEDS: PIPERACIL-TAZO 3.375 GM PREMIX 50 ML IV SCH ×4 (06:42→23:16)
[2017-04-21] MEDS: FOSPHENYTOIN SODIUM 100 MG PE/2 ML VIAL IV SCH (06:42)
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
--- NOTE | 2017-04-21 09:08 | HHI.NSPN ---
History Chief Complaint: Unable to obtain due to patient's clinical condition. Interval History TBI S/P ICP and EVD 04/21/2017: Weaning off propofol. On fentanyl. EEG this morning. No definite seizure activity. ICPs less than 10. EVD increased to 15 cm water Exam Results Vital Signs Date Time Temp Pulse Resp B/P (MAP) Pulse Ox O2 Delivery O2 Flow Rate FiO2 04/21/17 07:51 100 40 04/21/17 06:00 114 04/21/17 04:00 99.0 16 96/48 (64) 04/18/17 09:30 Mechanical Ventilator Intake and Output 04/21/17 04/21/17 04/22/17 08:00 16:00 00:00 Intake Total 305 ml Output Total 300 ml Balance 5 ml Physical Examination GENERAL: Intubated. Respirations: Clear to auscultation Cardiac: Regular without murmur. No carotid bruit Abdomen: Soft. HEENT: No CSF otorrhea or rhinorrhea. No significant scalp laceration or contusion. No periorbital edema or ecchymosis. MUSCULOSKELETAL: Positive contusion-ecchymosis left supraclavicular region. Dressing on right hand. Mild knee abrasion. No other long bone deformity NEUROLOGICAL: No eye opening to voice or noxious stimulation. Nonverbal, orally intubated. Does not follow any commands. Minimal withdrawal of right upper and bilateral lower extremity to deep pain. He occasionally moves the right upper extremity and lower extremities spontaneous with moderate strength but nonpurposeful. Ventriculostomy at 5 cm H2O pressure w/reddish CSF draining. ICP 8-10 with good correlation between the ventriculostomy and the ICP bolt. Lab, Micro, Other Results Laboratory Tests Test 04/20/17 14:30 04/20/17 18:32 04/21/17 00:50 04/21/17 03:09 Sodium Level 146 MEQ/L 149 MEQ/L Blood Gas Puncture Site ART LINE ART LINE Blood Gas Patient Temperature 40 98.6 Blood Gas HCO3 19 mmol/L 21 mmol/L Blood Gas Base Excess -5.9 mmol/L -3.7 mmol/L Blood Gas Oxygen Saturation 92 % 97 % Arterial Blood pH 7.31 7.38 Arterial Blood Partial Pressure CO2 40 mmHg 36 mmHg Arterial Blood Partial Pressure O2 72 mmHg 116 mmHg Arterial Blood Oxygen Content 11.5 Vol % 11.2 Vol % Arterial Blood Carboxyhemoglobin 1.5 % 1.5 % Arterial Blood Methemoglobin 1.1 % 0.9 % Blood Gas Hemoglobin 8.9 G/DL 8.1 G/DL Oxygen Delivery Device PRVC/16/550/1.0/+5 VENTILATOR Blood Gas Inspired Oxygen 10 % 40 % Phenytoin (Dilantin) Level 9.5 MCG/ML Blood Gas Ventilator Setting COMMENTS Test 04/21/17 04:47 White Blood Count 7.4 TH/MM3 Red Blood Count 2.46 MIL/MM3 Hemoglobin 7.2 GM/DL Hematocrit 21.1 % Mean Corpuscular Volume 85.7 FL Mean Corpuscular Hemoglobin 29.5 PG Mean Corpuscular Hemoglobin Concent 34.4 % Red Cell Distribution Width 13.6 % Platelet Count 140 TH/MM3 Mean Platelet Volume 7.5 FL Neutrophils (%) (Auto) 70.4 % Lymphocytes (%) (Auto) 20.2 % Monocytes (%) (Auto) 6.4 % Eosinophils (%) (Auto) 2.5 % Basophils (%) (Auto) 0.5 % Neutrophils # (Auto) 5.2 TH/MM3 Lymphocytes # (Auto) 1.5 TH/MM3 Monocytes # (Auto) 0.5 TH/MM3 Eosinophils # (Auto) 0.2 TH/MM3 Basophils # (Auto) 0.0 TH/MM3 CBC Comment DIFF FINAL Differential Comment Blood Urea Nitrogen 5 MG/DL Creatinine 0.74 MG/DL Random Glucose 200 MG/DL Total Protein 5.1 GM/DL Albumin 1.8 GM/DL Calcium Level 7.5 MG/DL Phosphorus Level 1.9 MG/DL Magnesium Level 1.6 MG/DL Alkaline Phosphatase 63 U/L Aspartate Amino Transf (AST/SGOT) 26 U/L Alanine Aminotransferase (ALT/SGPT) 22 U/L Total Bilirubin 0.7 MG/DL Sodium Level 150 MEQ/L Potassium Level 3.7 MEQ/L Chloride Level 120 MEQ/L Carbon Dioxide Level 22.2 MEQ/L Anion Gap 8 MEQ/L Estimat Glomerular Filtration Rate 121 ML/MIN Medical Decision Making Impression and Plan Imp: Traumatic brain injury. ICP satisfactory Plan: Continuing anticonvulsants. We will change Cerebyx to Dilantin. EEG today May wean vent and sedation as tolerated Discussed with Gen. surgery trauma service today Okay for Lovenox Plan to continue ICP monitoring for 7 days post trauma if ICP and clinical status and imaging studies remain stable. Stefano Jo MD Apr 21, 2017 09:08
[2017-04-21] MEDS ORDERED: PHENYTOIN SUSP 100 MG/4 ML CUP PO SCH (09:15)
[2017-04-21] MEDS ORDERED: GLUCAGON 1 MG/ML VIAL OTHER PRN (09:30)
[2017-04-21] MEDS ORDERED: DEXTROSE 50% IN WATER 50 ML SYRINGE IV PUSH PRN (09:30)
[2017-04-21] MEDS: fentaNYL DRIP 250 ML IV PRN ×2 (09:36→21:12)
[2017-04-21] MEDS: levETIRAcetam INJ 500 MG in SODIUM CHLORIDE 0.9% INJ 100 ML IV SCH ×2 (09:37→21:24)
[2017-04-21] MEDS: NS + KCL 40 MEQ INJ 1,000 ML IV SCH (09:37)
[2017-04-21] MEDS: LACTULOSE SYRUP 20 GM/30 ML CUP PO SCH (09:38)
[2017-04-21] MEDS: ARTIFICIAL TEARS OPTH OINT 3.5 APPLIC/3.5 GM TUBO EACH EYE SCH ×2 (09:39→20:07)
[2017-04-21] MEDS: CHLORHEXIDINE 0.12% (ORAL KIT) 15 ML CUP MT SCH ×2 (09:39→20:16)
[2017-04-21] MEDS: MAGNESIUM HYDROXIDE SUSP 30 ML CUP PO SCH ×2 (09:39→18:27)
[2017-04-21] MEDS: DOCUSATE SODIUM 50 MG/SENNA 8.6 MG TAB PO SCH ×2 (09:40→20:08)
[2017-04-21] MEDS: FAMOTIDINE 20 MG/2 ML VIAL IV PUSH SCH ×2 (09:40→20:07)
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
[2017-04-21] MEDS: ENOXAPARIN SODIUM 30 MG/0.3 ML SYRINGE SQ SCH (13:00)
[2017-04-21] MEDS: PHENYTOIN INJ 100 MG/2 ML VIAL IV PUSH SCH ×2 (14:06→21:25)
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
[2017-04-21] MEDS: 3% SALINE INJ 500 ML IV SCH (20:08)
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
[2017-04-22] VITALS (27 sets, daily range): BP systolic 112–146; BP diastolic 61–82; PULSE 77–131; RESP 15–21; TEMP 97.5–101.7; O2SAT 96–100
[2017-04-22] MEDS: INSULIN ASPART SUPPLEMENTAL SCALE SQ SCH ×4 (00:06→18:15)
[2017-04-22] MEDS: ENOXAPARIN SODIUM 30 MG/0.3 ML SYRINGE SQ SCH ×2 (00:08→12:44)
[2017-04-22] MEDS: PROPOFOL 1000 MG/100 ML IV PRN ×4 (01:03→22:44)
[2017-04-22 02:43] LABS: BLOOD GAS BASE EXCESS -4.7 mmol/L (-2-2); BLOOD GAS CARBOXYHEMOGLOBIN 1.7 % (0-4); BLOOD GAS HCO3 21 mmol/L (22-26); BLOOD GAS METHEMOGLOBIN 0.7 % (0-2); BLOOD GAS O2 HGB SATURATION 96 % (90-100); BLOOD GAS OXYGEN CONTENT 10.3 Vol % (12.0-20.0); BLOOD GAS PCO2 45 mmHg (38-42); BLOOD GAS PO2 96 mmHg (61-120); BLOOD GAS TOTAL HGB 7.5 G/DL (12.0-16.0); TEMP CORR TO 98.6
[2017-04-22 02:44] LABS: CRITICAL VALUE YES; OXYGEN DEVICE VENTILATOR
[2017-04-22 02:45] LABS: FIO2 40 %
[2017-04-22 02:46] LABS: DRAW SITE LT BRACHIAL; NUMBER OF ARTERIAL PUNCTURES 2; STAT NO; ULNAR PULSE PRESENT
[2017-04-22] MEDS: NS + KCL 40 MEQ INJ 1,000 ML IV SCH (03:09)
[2017-04-22] MEDS: CHLORHEXIDINE GLUCONATE 2 % 1 PACK (2 CLOTHS) TOP SCH (03:13)
[2017-04-22] MEDS: RESP: ALBUTEROL 2.5 MG/IPRATROPIUM 0.5 MG NEB (SCH) NEB ×2 (03:40→08:43)
[2017-04-22] MEDS: ACETAMINOPHEN 1000 MG/100 ML 100 ML IV PRN ×3 (04:03→16:52)
[2017-04-22] MEDS: PIPERACIL-TAZO 3.375 GM PREMIX 50 ML IV SCH ×4 (04:31→22:43)
--- NOTE | 2017-04-22 04:48 | RADRPT ---
EXAM DATE/TIME: 04/22/2017 03:20 [place] COMPARISON: CHEST SINGLE AP, April 21, 2017, 5:39. INDICATIONS : Respiratory distress. Follow up trauma. MEDICAL HISTORY : Diabetes mellitus type II. Hypertension SURGICAL HISTORY : None. ENCOUNTER: Subsequent ACUITY: 4 - 6 days PAIN SCORE: Non-responsive. LOCATION: Bilateral chest FINDINGS: Portable AP view of the chest demonstrates a normal-sized cardiac silhouette. ETT, nasogastric tube, and left IJ line remain present. Large bore left chest tube is in place. Multiple lines and structure s overlie the chest. No pneumothorax is appreciated. There are mild bibasilar opacities. Left clavicl e fracture remains displaced. CONCLUSION: 1. Stable chest x-ray with mild bibasilar opacities. 2. Left chest tube is present and no pneumothorax is identified. 3. Stable displaced left clavicle fracture. Jonathan Jacobo MD on April 22, 2017 at 4:44 Board Certified Radiologist. This report was verified electronically.
[2017-04-22 05:06] LABS: AUTOMATED NEUTROPHIL # 6.6 TH/MM3 (1.8-7.7); BASOPHIL # 0.1 TH/MM3 (0-0.2); BASOPHIL % 0.5 % (0.0-2.0); EOSINOPHIL # 0.3 TH/MM3 (0-0.4); EOSINOPHIL % 3.6 % (0.0-4.0); LYMPH % 14.3 % (9.0-44.0); LYMPHOCYTE # 1.3 TH/MM3 (1.0-4.8); MEAN CELL VOLUME 87.4 FL (80.0-100.0); MEAN CORPUSCULAR HEMOGLOBIN 29.3 PG (27.0-34.0); MEAN CORPUSCULAR HGB CONC 33.6 % (32.0-36.0); MONO % 10.2 % (0.0-8.0); NEUT % 71.4 % (16.0-70.0); PLATELET COUNT 174 TH/MM3 (150-450); RED BLOOD COUNT 2.36 MIL/MM3 (4.50-5.90); WHITE BLOOD COUNT 9.3 TH/MM3 (4.0-11.0)
[2017-04-22 05:08] LABS: HEMO FLAGS DIFF FINAL
[2017-04-22 05:11] LABS: HEMATOCRIT 20.6 % (39.0-51.0)
[2017-04-22 05:28] LABS: ANION GAP 11 MEQ/L (5-15); AST (GOT) 28 U/L (15-37); BICARBONATE 21.5 MEQ/L (21.0-32.0); BLOOD UREA NITROGEN 7 MG/DL (7-18); CHLORIDE 117 MEQ/L (98-107); GLOMERULAR FILTRATION RATE 133 ML/MIN (>89); POTASSIUM 3.9 MEQ/L (3.5-5.1); SODIUM (NA) 149 MEQ/L (136-145)
[2017-04-22 05:29] LABS: ALT (GPT) 20 U/L (12-78)
[2017-04-22] MEDS: PHENYTOIN INJ 100 MG/2 ML VIAL IV PUSH SCH ×3 (05:30→21:59)
[2017-04-22 05:31] LABS: ALKALINE PHOSPHATASE 160 U/L (45-117); TOTAL BILIRUBIN ADULT 0.9 MG/DL (0.2-1.0)
[2017-04-22] MEDS: MAGNESIUM HYDROXIDE SUSP 30 ML CUP PO SCH ×2 (05:53→18:15)
[2017-04-22] MEDS: fentaNYL DRIP 250 ML IV PRN ×2 (07:28→18:15)
--- NOTE | 2017-04-22 07:42 | HHI.PR ---
Review/Management Diagnosis/Plan: (1) Intracranial hemorrhage ICD Codes: I62.9 - Nontraumatic intracranial hemorrhage, unspecified Status: Acute (2) Trauma ICD Codes: T14.90XA - Injury, unspecified, initial encounter Status: Acute Daily Summary 04/20 sedated and at times shivering like motor activity possible due to reduction in sedation no overt seizures spoke to staff spoke to family dph 9.5 will follow eeg and dph levels unable to fully neuro eval due to acute injuries and sedation 04/22 on vent and sedated eeg nonepileptiform dph around 9, stable neuro pierre monitor course call prn over weekend Subjective Subjective Comments sedated no seizure per staff Active Medications Current Medications Medications (Trade) Dose Ordered Sig/Court Route Start Time Stop Time Status Last Admin (Pepcid Inj) 20 mg Q12HR IV PUSH 04/18/17 09:00 04/21/17 20:07 (Zofran Inj) 4 mg Q6H PRN IV PUSH 04/18/17 06:45 Miscellaneous Information 1 [id number] XX 04/18/17 06:45 04/18/17 06:45 (Chlorhexidine 2% Cloth) 3 pack Taper DAILY@04 TOP 04/19/17 04:00 04/15/18 03:59 (Chlorhexidine 2% Cloth) 3 pack UNSCH PRN TOP 04/18/17 06:45 (Toshia-Colace) 1 tab BID PO 04/18/17 09:00 04/21/17 20:08 (Senokot) 17.2 mg Q12H PRN PO 04/18/17 06:45 (Dulcolax Supp) 10 mg DAILY PRN RECTAL 04/18/17 06:45 Levetriacetam 500 mg/Sodium Chloride 105 ml @ 420 mls/hr Q12HR IV 04/18/17 09:00 04/21/17 21:24 Propofol 100 ml @ 2.652 mls/ hr TITRATE PRN IV 04/18/17 11:00 04/22/17 07:24 (Duoneb Neb) 1 ampule Q6HR NEB PRN NEB 04/18/17 12:30 (Peridex 0.12% Liq) 15 ml BID@08,20 MT 04/18/17 20:00 04/21/17 20:16 (Duoneb Neb) 1 ampule Q6HR NEB NEB 04/18/17 16:00 04/21/17 19:41 Acetaminophen 100 ml @ 400 mls/hr Q6H PRN IV 04/18/17 14:45 04/22/17 04:03 Potassium Chloride 100 ml @ 50 mls/hr Q2H PRN IV-CENTRAL 04/18/17 16:15 Potassium Chloride 100 ml @ 50 mls/hr Q2H PRN IV 04/18/17 16:15 Potassium Chloride 100 ml @ 25 mls/hr UNSCH PRN IV-CENTRAL 04/18/17 16:15 Potassium Chloride 100 ml @ 50 mls/hr Q2H PRN IV 04/18/17 16:15 04/19/17 06:47 Magnesium Sulfate 4 gm/Sodium Chloride 100 ml @ 50 mls/hr UNSCH PRN IV 04/18/17 16:15 (Mag-Ox) 800 mg UNSCH PRN PO 04/18/17 16:15 Magnesium Sulfate 2 gm/Sodium Chloride 100 ml @ 50 mls/hr UNSCH PRN IV 04/18/17 16:15 (K-Phos) 2,000 mg Q4H PRN PO 04/18/17 16:15 Sodium Phosphate 30 mmol/Sodium Chloride 250 ml @ 42 mls/hr UNSCH PRN IV 04/18/17 16:15 04/20/17 05:57 (K-Phos) 2,000 mg UNSCH PRN PO/TUBE 04/18/17 16:15 Potassium Phosphate 30 mmol/ Sodium Chloride 260 ml @ 42 mls/hr UNSCH PRN IV 04/18/17 16:15 (KCl Powder) 40 meq DAILY PRN PO 04/18/17 16:15 Piperacillin Sod/ Tazobactam Sod 50 ml @ 100 mls/hr Q6H IV 04/18/17 17:00 04/22/17 04:31 Phenylephrine HCl 40 mg/Sodium Chloride 500 ml @ 30 mls/hr TITRATE PRN IV 04/19/17 06:45 04/19/17 06:38 Potassium Chloride/Sodium Chloride 1,000 ml @ 60 mls/hr [id number] IV 04/19/17 07:30 04/22/17 03:09 (Brethine Inj) 1 mg UNSCH PRN SQ 04/19/17 07:45 (Lacrilube Opht Oint) 1 applic Q12HR EACH EYE 04/19/17 21:00 04/21/17 20:07 Norepinephrine Bitartrate 4 mg/ Sodium Chloride 250 ml @ 7.5 mls/hr TITRATE PRN IV 04/19/17 14:30 04/20/17 09:48 Sodium Chloride 500 ml @ 10 mls/hr CONTINUOUS IV 04/20/17 08:15 04/21/17 20:08 Fentanyl Citrate 250 ml @ 5 mls/hr TITRATE PRN IV 04/20/17 09:30 04/22/17 07:28 (Lactulose Liq) 30 ml DAILY PO 04/21/17 06:30 04/21/17 09:38 (Milk Of Magnesia Liq) 30 ml Q12H PO 04/21/17 06:30 04/21/17 18:27 (Dilantin Inj) 100 mg Q8HR IV PUSH 04/21/17 14:00 04/22/17 05:30 (NovoLOG SUPPLEMENTAL SCALE) 1 Q6HR SQ 04/21/17 12:00 04/22/17 00:06 (D50w (Syr) Inj) 50 ml UNSCH PRN IV PUSH 04/21/17 09:30 (Glucagon Inj) 1 mg UNSCH PRN OTHER 04/21/17 09:30 (Lovenox Inj) 30 mg Q12H SQ 04/21/17 13:00 04/22/17 00:08 Allergies Allergies Coded Allergies MRI PRECAUTION (Verified Allergy, Unknown, 04/18/17) Exam I&O / VS 04/22/17 04/22/17 04/23/17 15:00 23:00 07:00 Intake Total 90 ml Balance 90 ml Intake IV Total 90 ml Vital Signs Date Time Temp Pulse Resp B/P (MAP) Pulse Ox O2 Delivery O2 Flow Rate FiO2 04/22/17 06:00 113 04/22/17 04:07 97 40 04/22/17 04:00 101.5 124 15 115/66 (82) 97 04/22/17 04:00 124 04/22/17 04:00 40 04/22/17 03:45 40 04/22/17 02:00 120 04/22/17 01:54 40 04/22/17 01:30 100 40 04/22/17 01:00 40 04/22/17 00:30 100 40 04/22/17 00:00 40 04/22/17 00:00 119 04/22/17 00:00 100.2 119 16 112/64 (80) 97 04/22/17 00:00 97 40 04/21/17 22:00 116 04/21/17 20:13 100 40 04/21/17 20:13 100 40 04/21/17 20:00 113 04/21/17 20:00 40 04/21/17 20:00 100.2 130 16 137/71 (93) 99 Arterial Line 04/21/17 18:00 114 04/21/17 16:00 40 04/21/17 16:00 119 04/21/17 16:00 99.7 119 16 98 100/52 (68) 04/21/17 15:55 97 40 04/21/17 14:00 125 04/21/17 12:10 99 40 04/21/17 12:00 40 04/21/17 12:00 114 04/21/17 12:00 99.3 114 16 99 113/54 (73) 04/21/17 10:00 141 04/21/17 08:00 40 04/21/17 08:00 99.7 133 16 100 146/61 (89) 04/21/17 08:00 133 04/21/17 07:51 100 40 Objective Micro and Labs Laboratory Tests Test 04/21/17 15:08 04/21/17 20:55 04/22/17 02:30 04/22/17 04:50 Sodium Level 151 150 149 Blood Gas Puncture Site LT BRACHIAL Blood Gas Patient Temperature 98.6 Blood Gas HCO3 21 Blood Gas Base Excess -4.7 Blood Gas Oxygen Saturation 96 Arterial Blood pH 7.29 Arterial Blood Partial Pressure CO2 45 Arterial Blood Partial Pressure O2 96 Arterial Blood Oxygen Content 10.3 Arterial Blood Carboxyhemoglobin 1.7 Arterial Blood Methemoglobin 0.7 Blood Gas Hemoglobin 7.5 Oxygen Delivery Device VENTILATOR Blood Gas Ventilator Setting COMMENT Blood Gas Inspired Oxygen 40 White Blood Count 9.3 Red Blood Count 2.36 Hemoglobin 6.9 Hematocrit 20.6 Mean Corpuscular Volume 87.4 Mean Corpuscular Hemoglobin 29.3 Mean Corpuscular Hemoglobin Concent 33.6 Red Cell Distribution Width 14.0 Platelet Count 174 Mean Platelet Volume 7.0 Neutrophils (%) (Auto) 71.4 Lymphocytes (%) (Auto) 14.3 Monocytes (%) (Auto) 10.2 Eosinophils (%) (Auto) 3.6 Basophils (%) (Auto) 0.5 Neutrophils # (Auto) 6.6 Lymphocytes # (Auto) 1.3 Monocytes # (Auto) 0.9 Eosinophils # (Auto) 0.3 Basophils # (Auto) 0.1 CBC Comment DIFF FINAL Differential Comment Blood Urea Nitrogen 7 Creatinine 0.68 Random Glucose 158 Total Protein 5.9 Albumin 1.8 Calcium Level 7.7 Phosphorus Level 2.3 Magnesium Level 2.0 Alkaline Phosphatase 160 Aspartate Amino Transf (AST/SGOT) 28 Alanine Aminotransferase (ALT/SGPT) 20 Total Bilirubin 0.9 Potassium Level 3.9 Chloride Level 117 Carbon Dioxide Level 21.5 Anion Gap 11 Estimat Glomerular Filtration Rate 133 Date/Time Source Procedure Growth Status 04/19/17 03:55 Blood Peripheral Aerobic Blood Culture - Preliminary NO GROWTH IN 2 DAYS Resulted 04/19/17 03:55 Blood Peripheral Anaerobic Blood Culture - Preliminary NO GROWTH IN 2 DAYS Resulted 04/19/17 03:30 Sputum Endotracheal Gram Stain - Final Complete 04/19/17 03:30 Sputum Culture - Final Enterobacter Cloacae Complete 04/18/17 14:30 Urine Catheterized Urine Urine Culture - Final NO GROWTH IN 48 HOURS. Complete Marky Colon MD Apr 22, 2017 07:42
[2017-04-22] MEDS: CHLORHEXIDINE 0.12% (ORAL KIT) 15 ML CUP MT SCH ×2 (08:00→20:52)
[2017-04-22] MEDS ORDERED: BISACODYL 10 MG SUPP RECTAL ONE (08:00)
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
[2017-04-22] MEDS: ARTIFICIAL TEARS OPTH OINT 3.5 APPLIC/3.5 GM TUBO EACH EYE SCH ×2 (09:00→20:52)
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
--- NOTE | 2017-04-22 10:35 | RADRPT ---
EXAM DATE/TIME: 04/22/2017 09:59 [facility] COMPARISON: CT BRAIN W/O CONTRAST, April 19, 2017, 13:58. INDICATIONS : Evaluate status of known intracerebral hemorrhage RADIATION DOSE: 56.35 CTDIvol (mGy) MEDICAL HISTORY : Hypertension. Diabetes mellitus type 2. SURGICAL HISTORY : Cochlear implant ENCOUNTER: Subsequent ACUITY: 4 - 6 days PAIN SCALE: Non-responsive LOCATION: cranial TECHNIQUE: Multiple contiguous axial images were obtained of the head. Using automated exposure control and adj ustment of the mA and/or kV according to patient size, radiation dose was kept as low as reasonably a chievable to obtain optimal diagnostic quality images. DICOM format image data is available electro nically for review and comparison. FINDINGS: This examination is stable from the prior study. Small areas of hemorrhage are again seen and remain unchanged. The largest measures 1 cm in diameter and is intraparenchymal within the left frontal lobe . There is a tiny focus of hemorrhage adjacent to the intracranial pressure monitoring device within the right frontal lobe. A tiny focus of hemorrhage is seen involving the right ambient cistern as wel l as a tiny amount of layering hemorrhage within the right atria of the lateral ventricle. No [place] rces of hemorrhage observed. Ventricles remain stable in size. A right-sided ventriculostomy again no rell. Tip terminates in the region of the third ventricle. Artifact from a electronic device obscures the left occipital and parietal lobes in part. Mucosal thickening is seen throughout the visualized p aranasal sinuses with air-fluid levels involving both maxillary sinuses. Fluid opacification of the l eft mastoid air cells. Right mastoid air cells are clear. CONCLUSION: 1. Stable exam with small sites of hemorrhage as detailed above. No acute hemorrhage. No herniation. Elvis Cleaning Jr., MD on April 22, 2017 at 10:26 Board Certified Radiologist. This report was verified electronically.
[2017-04-22] MEDS: FAMOTIDINE 20 MG/2 ML VIAL IV PUSH SCH ×2 (10:47→22:42)
[2017-04-22] MEDS: DOCUSATE SODIUM 50 MG/SENNA 8.6 MG TAB PO SCH ×2 (10:47→22:42)
[2017-04-22] MEDS: levETIRAcetam INJ 500 MG in SODIUM CHLORIDE 0.9% INJ 100 ML IV SCH ×2 (10:48→21:59)
[2017-04-22] MEDS: LACTULOSE SYRUP 20 GM/30 ML CUP PO SCH (10:48)
[2017-04-22 12:38] LABS: BLOOD GAS BASE EXCESS -5.1 mmol/L (-2-2); BLOOD GAS CARBOXYHEMOGLOBIN 1.3 % (0-4); BLOOD GAS HCO3 20 mmol/L (22-26); BLOOD GAS METHEMOGLOBIN 0.4 % (0-2); BLOOD GAS O2 HGB SATURATION 97 % (90-100); BLOOD GAS OXYGEN CONTENT 16.8 Vol % (12.0-20.0); BLOOD GAS PO2 136 mmHg (61-120); BLOOD GAS TOTAL HGB 12.1 G/DL (12.0-16.0); TEMP CORR TO 98.6
[2017-04-22 12:39] LABS: CRITICAL VALUE NO; OXYGEN DEVICE VENTILATOR; VENT SETTINGS PRVC/AC
[2017-04-22 12:40] LABS: BLOOD GAS PCO2 37 mmHg (38-42); DRAW SITE LT RADIAL; FIO2 40 %; NUMBER OF ARTERIAL PUNCTURES 1; ULNAR PULSE PRESENT
[2017-04-22 12:41] LABS: STAT NO
[2017-04-22] MEDS: SODIUM PHOSPHATE INJ 30 MMOL in SODIUM CHLOR 0.9% 250 ML INJ 240 ML IV PRN (12:45)
[2017-04-22 13:45] LABS: HEMATOCRIT 26.9 % (39.0-51.0); REVIEW FLAG FINAL
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
[2017-04-22] MEDS: RESP: ALBUTEROL 2.5 MG/IPRATROPIUM 0.5 MG NEB (PRN) NEB ×2 (16:05→19:29)
[2017-04-23] VITALS (18 sets, daily range): BP systolic 107–154; BP diastolic 61–87; PULSE 94–134; RESP 18–20; TEMP 99.1–101.8; O2SAT 96–100
[2017-04-23] MEDS: INSULIN ASPART SUPPLEMENTAL SCALE SQ SCH ×4 (01:16→17:37)
[2017-04-23] MEDS: ENOXAPARIN SODIUM 30 MG/0.3 ML SYRINGE SQ SCH ×2 (01:17→13:13)
[2017-04-23] MEDS: ACETAMINOPHEN 1000 MG/100 ML 100 ML IV PRN ×3 (01:43→19:45)
[2017-04-23] MEDS: CHLORHEXIDINE GLUCONATE 2 % 1 PACK (2 CLOTHS) TOP SCH (03:37)
[2017-04-23 04:43] LABS: AUTOMATED NEUTROPHIL # 6.6 TH/MM3 (1.8-7.7); BASOPHIL # 0.1 TH/MM3 (0-0.2); BASOPHIL % 0.6 % (0.0-2.0); EOSINOPHIL # 0.4 TH/MM3 (0-0.4); EOSINOPHIL % 4.5 % (0.0-4.0); HEMATOCRIT 26.7 % (39.0-51.0); HEMO FLAGS DIFF FINAL; LYMPH % 15.2 % (9.0-44.0); LYMPHOCYTE # 1.5 TH/MM3 (1.0-4.8); MEAN CELL VOLUME 85.7 FL (80.0-100.0); MONO % 11.2 % (0.0-8.0); NEUT % 68.5 % (16.0-70.0); PLATELET COUNT 208 TH/MM3 (150-450); RED BLOOD COUNT 3.11 MIL/MM3 (4.50-5.90); RED CELL DISTRIBUTION WIDTH 14.2 % (11.6-17.2); WHITE BLOOD COUNT 9.7 TH/MM3 (4.0-11.0)
[2017-04-23 05:06] LABS: ALKALINE PHOSPHATASE 358 U/L (45-117); TOTAL BILIRUBIN ADULT 0.6 MG/DL (0.2-1.0)
[2017-04-23 05:07] LABS: ALT (GPT) 36 U/L (12-78); ANION GAP 8 MEQ/L (5-15); AST (GOT) 43 U/L (15-37); BLOOD UREA NITROGEN 9 MG/DL (7-18); CHLORIDE 116 MEQ/L (98-107); GLOMERULAR FILTRATION RATE 127 ML/MIN (>89); MAGNESIUM 2.1 MG/DL (1.5-2.5); POTASSIUM 3.6 MEQ/L (3.5-5.1); SODIUM (NA) 147 MEQ/L (136-145)
[2017-04-23] MEDS: PIPERACIL-TAZO 3.375 GM PREMIX 50 ML IV SCH ×4 (05:07→22:04)
[2017-04-23] MEDS: PHENYTOIN INJ 100 MG/2 ML VIAL IV PUSH SCH ×3 (05:07→22:04)
[2017-04-23 05:40] LABS: BLOOD GAS CARBOXYHEMOGLOBIN 1.5 % (0-4); BLOOD GAS HCO3 22 mmol/L (22-26); BLOOD GAS METHEMOGLOBIN 1.1 % (0-2); BLOOD GAS O2 HGB SATURATION 93 % (90-100); BLOOD GAS OXYGEN CONTENT 13.1 Vol % (12.0-20.0); BLOOD GAS PCO2 43 mmHg (38-42); BLOOD GAS PO2 78 mmHg (61-120); CRITICAL VALUE NO; OXYGEN DEVICE VENT; TEMP CORR TO 98.6
[2017-04-23 05:41] LABS: DRAW SITE LT BRACHIAL; FIO2 40 %; NUMBER OF ARTERIAL PUNCTURES 1; STAT NO; ULNAR PULSE PRESENT
[2017-04-23] MEDS: MAGNESIUM HYDROXIDE SUSP 30 ML CUP PO SCH ×2 (05:53→17:37)
[2017-04-23] MEDS: NS + KCL 40 MEQ INJ 1,000 ML IV SCH (06:01)
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
[2017-04-23] MEDS: PROPOFOL 1000 MG/100 ML IV PRN ×3 (06:43→22:02)
[2017-04-23] MEDS: fentaNYL DRIP 250 ML IV PRN (06:43)
[2017-04-23] MEDS: CHLORHEXIDINE 0.12% (ORAL KIT) 15 ML CUP MT SCH ×2 (08:00→20:02)
[2017-04-23] MEDS: levETIRAcetam INJ 500 MG in SODIUM CHLORIDE 0.9% INJ 100 ML IV SCH ×2 (08:02→20:02)
[2017-04-23] MEDS: DOCUSATE SODIUM 50 MG/SENNA 8.6 MG TAB PO SCH ×2 (08:02→20:01)
[2017-04-23] MEDS: ARTIFICIAL TEARS OPTH OINT 3.5 APPLIC/3.5 GM TUBO EACH EYE SCH ×2 (08:02→20:03)
[2017-04-23] MEDS: LACTULOSE SYRUP 20 GM/30 ML CUP PO SCH (08:02)
[2017-04-23] MEDS: FAMOTIDINE 20 MG/2 ML VIAL IV PUSH SCH ×2 (08:02→20:01)
--- NOTE | 2017-04-23 09:54 | HHI.NSPN ---
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 room, dw nursing (Geeta Liriano) Attending Statement As above Continue neuro checks. ICP's stable Pulmonary.. Continue aggressive pulmonary toilette, nasotracheal suction, and breathing treatments with nebulizers. Nutrition. NPO Renal. monitor closely urine output, BUN and creatinine Endocrine. Monitor serial Acu checks and SSI as needed in detail ID monitor for signs of infection Protonix for stress ulcer prophylaxis Bear hose and SCD's for DVT prophylaxis. Discussed with his family The exam, history, and the medical decision-making described in the above note were completed with the assistance of the mid-level provider. I reviewed and agree with the findings presented. I attest that I had a [id number] encounter with the patient on the same day, and personally performed and documented my assessment and findings in the medical record. (Wilfredo Wells MD) Geeta Liriano Apr 23, 2017 09:54 Wilfredo Wells MD Apr 24, 2017 16:55
[2017-04-23] MEDS: PROPRANOLOL HCL 10 MG TAB PO SCH ×3 (10:48→22:04)
[2017-04-23] MEDS: QUEtiapine FUMARATE 25 MG TAB PO SCH ×2 (10:49→20:01)
[2017-04-23] MEDS: SODIUM PHOSPHATE INJ 30 MMOL in SODIUM CHLOR 0.9% 250 ML INJ 240 ML IV PRN (10:50)
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
[2017-04-24] VITALS (24 sets, daily range): BP systolic 127–162; BP diastolic 70–90; PULSE 94–126; RESP 18–20; TEMP 99–102; O2SAT 96–100
[2017-04-24] MEDS: ENOXAPARIN SODIUM 30 MG/0.3 ML SYRINGE SQ SCH ×2 (00:47→13:00)
[2017-04-24] MEDS: INSULIN ASPART SUPPLEMENTAL SCALE SQ SCH ×4 (00:47→17:41)
[2017-04-24] MEDS: fentaNYL DRIP 250 ML IV PRN (01:08)
[2017-04-24] MEDS: CHLORHEXIDINE GLUCONATE 2 % 1 PACK (2 CLOTHS) TOP SCH (04:00)
[2017-04-24 04:10] LABS: AUTOMATED NEUTROPHIL # 8.2 TH/MM3 (1.8-7.7); BASOPHIL # 0.1 TH/MM3 (0-0.2); BASOPHIL % 0.5 % (0.0-2.0); EOSINOPHIL # 0.6 TH/MM3 (0-0.4); EOSINOPHIL % 4.5 % (0.0-4.0); HEMATOCRIT 31.7 % (39.0-51.0); LYMPH % 18.1 % (9.0-44.0); LYMPHOCYTE # 2.3 TH/MM3 (1.0-4.8); MEAN CELL VOLUME 85.8 FL (80.0-100.0); MEAN CORPUSCULAR HEMOGLOBIN 28.2 PG (27.0-34.0); MEAN CORPUSCULAR HGB CONC 32.9 % (32.0-36.0); MONO % 13.9 % (0.0-8.0); PLATELET COUNT 299 TH/MM3 (150-450); RED BLOOD COUNT 3.69 MIL/MM3 (4.50-5.90); RED CELL DISTRIBUTION WIDTH 14.3 % (11.6-17.2); WHITE BLOOD COUNT 12.9 TH/MM3 (4.0-11.0)
[2017-04-24 04:11] LABS: HEMO FLAGS AUTO DIFF
[2017-04-24] MEDS: PROPOFOL 1000 MG/100 ML IV PRN ×2 (04:16→11:15)
[2017-04-24] MEDS: ACETAMINOPHEN 1000 MG/100 ML 100 ML IV PRN ×2 (04:17→17:00)
[2017-04-24 05:12] LABS: BANDS 5 % (0-6); METAMYELOCYTES 2 % (0-1); MYELOCYTES 1 % (0-0); NEUTROPHIL # MANUAL DIFF 10.7 TH/MM3 (1.8-7.7); POLYS (SEG NEUTROPHILS) 75 % (16-70); WBC DIFF SAMPLE 100
[2017-04-24 05:13] LABS: SCAN/DIFF FINAL DIFF MANUAL
[2017-04-24 05:25] LABS: ALT (GPT) 39 U/L (12-78)
[2017-04-24] MEDS: PIPERACIL-TAZO 3.375 GM PREMIX 50 ML IV SCH ×4 (05:25→22:52)
[2017-04-24] MEDS: PHENYTOIN INJ 100 MG/2 ML VIAL IV PUSH SCH ×3 (05:25→21:38)
[2017-04-24] MEDS: PROPRANOLOL HCL 10 MG TAB PO SCH ×3 (05:26→21:39)
[2017-04-24] MEDS: MAGNESIUM HYDROXIDE SUSP 30 ML CUP PO SCH ×2 (05:26→18:10)
[2017-04-24 05:28] LABS: ALKALINE PHOSPHATASE 398 U/L (45-117); TOTAL BILIRUBIN ADULT 0.7 MG/DL (0.2-1.0)
[2017-04-24 05:32] LABS: ANION GAP 9 MEQ/L (5-15); AST (GOT) 42 U/L (15-37); BICARBONATE 25.8 MEQ/L (21.0-32.0); BLOOD UREA NITROGEN 11 MG/DL (7-18); CHLORIDE 113 MEQ/L (98-107); GLOMERULAR FILTRATION RATE 136 ML/MIN (>89); MAGNESIUM 2.1 MG/DL (1.5-2.5); POTASSIUM 4.5 MEQ/L (3.5-5.1); SODIUM (NA) 148 MEQ/L (136-145)
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
[2017-04-24] MEDS: CHLORHEXIDINE 0.12% (ORAL KIT) 15 ML CUP MT SCH ×2 (08:00→20:09)
[2017-04-24] MEDS: FAMOTIDINE 20 MG/2 ML VIAL IV PUSH SCH ×2 (08:42→21:39)
[2017-04-24] MEDS: levETIRAcetam INJ 500 MG in SODIUM CHLORIDE 0.9% INJ 100 ML IV SCH ×2 (08:42→21:37)
[2017-04-24] MEDS: QUEtiapine FUMARATE 25 MG TAB PO SCH ×2 (08:42→21:40)
[2017-04-24] MEDS: LACTULOSE SYRUP 20 GM/30 ML CUP PO SCH (08:42)
[2017-04-24] MEDS: ARTIFICIAL TEARS OPTH OINT 3.5 APPLIC/3.5 GM TUBO EACH EYE SCH ×2 (08:42→21:00)
[2017-04-24] MEDS: DOCUSATE SODIUM 50 MG/SENNA 8.6 MG TAB PO SCH ×2 (08:42→21:40)
--- NOTE | 2017-04-24 09:41 | HHI.NSPN ---
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 CONCLUSION: 1. Persistent bilateral lower lung zone airspace consolidation. No pneumothorax is visualized. 2. Nasogastric tube distal tip terminates at the GE junction. This ideally should be advanced. Jonathan Jacobo MD Abdomen X-Ray 04/24/17 0000 Signed Impressions: Service Date/Time: Monday, April 24, 2017 13:43 - CONCLUSION: 1. Feeding type (Dobbhoff) nasoenteric catheter in the body of the stomach. 2. A suction type nasogastric catheter is not visualized. If exam is performed to evaluate for suction type catheter, recommend radiograph of the chest to determine location. Den Gooden MD Chest X-Ray 04/23/17 0600 Signed Impressions: Service Date/Time: Sunday, April 23, 2017 04:43 - CONCLUSION: 1. Stable chest x-ray with unchanged bibasilar opacities. 2. Left chest tube remains present and no pneumothorax is visualized. Jonathan Jacobo MD (Wilfredo Wells MD) Plan Plan Remarks cont ventriculostomy draining with ICP monitoring, critical care management serial neuro checks in ISC cont sedation weaning as tolerated (Geeta Liriano) Attending Statement As above Continue neuro checks. ICP's stable Pulmonary.. Continue aggressive pulmonary toilette, nasotracheal suction, and breathing treatments with nebulizers. Nutrition. NPO Renal. monitor closely urine output, BUN and creatinine Endocrine. Monitor serial Acu checks and SSI as needed in detail ID monitor for signs of infection Protonix for stress ulcer prophylaxis Bear hose and SCD's for DVT prophylaxis. Discussed with his family again today The exam, history, and the medical decision-making described in the above note were completed with the assistance of the mid-level provider. I reviewed and agree with the findings presented. I attest that I had a [id number] encounter with the patient on the same day, and personally performed and documented my assessment and findings in the medical record. (Wilfredo Wells MD) Geeta Liriano Apr 24, 2017 09:41 Wilfredo Wells MD Apr 24, 2017 16:55
[2017-04-24] MEDS ORDERED: MIDAZOLAM HCL 5 MG/5 ML VIAL IV PUSH SCH (11:00)
[2017-04-24] MEDS ORDERED: VECURONIUM BROMIDE 10 MG VIAL IV PUSH PRN (11:00)
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
--- NOTE | 2017-04-24 14:26 | RADRPT ---
EXAM DATE/TIME: 04/24/2017 13:43 [facility] COMPARISON: No previous studies available for comparison. INDICATIONS : Confirm NG tube placement. MEDICAL HISTORY : Diabetes mellitus type II. Hypertension SURGICAL HISTORY : None. ENCOUNTER: Initial ACUITY: 1 day PAIN SCORE: Non-responsive. LOCATION: Bilateral abdomen. FINDINGS: There is a feeding type nasoenteric catheter are noted in the body of the stomach. A section type cat heter is not visualized in this exam. There is a nonobstructed bowel gas pattern. Osseous structures are intact. CONCLUSION: 1. Feeding type (Dobbhoff) nasoenteric catheter in the body of the stomach. 2. A suction type nasogastric catheter is not visualized. If exam is performed to evaluate for suctio n type catheter, recommend radiograph of the chest to determine location. Den Gooden MD on April 24, 2017 at 14:22 Board Certified Radiologist. This report was verified electronically.
--- NOTE | 2017-04-24 14:47 | PD.PROCEDR ---
Procedure Note Procedure Procedure: Diagnostic Fiberoptic Bronchoscopy Diagnosis: Subacute respiratory failure Indications: Need for perioperative guidance for percutaneous tracheostomy Consent: Written consent was obtained Anesthesia: Versed IV, fentanyl IV, vecuronium IV Description of the Procedure: The patient was sedated and mechanically ventilated. The patient was placed on 100% FIO2 and a volume control mode of ventilation. The fiberoptic bronchoscopy was inserted via 8.0 oral endotracheal tube. The trachea, right and left mainstem bronchi, and sub- segmental bronchi were evaluated. The endobronchial anatomy was normal. Findings: Under direct bronchoscopic guidance, the needle, catheter, guidewire, dilators, tracheostomy were visualized in the lumen of the trachea. Please see separate procedure note for tracheostomy details. Prior to any positive pressure ventilation the 8.0 Shiley cuffed trach was visualized in the lumen of the trachea by direct bronchoscopic visualization. BAL samples: None were sent The patient tolerated the procedure well with no hemodynamic instability or hypoxia. There were no immediate complications noted. At the conclusion of the procedure, the patient was placed back on their pre-procedure ventilatory settings. There was minimal EBL. In addition, throughout the procedure, patient's ICPs were closely monitored and were never sustained greater than 19 A chest x-ray has been ordered. I personally performed the procedure. Collin Cheng MD Apr 24, 2017 14:47
[2017-04-25] VITALS (19 sets, daily range): BP systolic 137–163; BP diastolic 87–90; PULSE 96–128; RESP 14–25; TEMP 99.3–101.8; O2SAT 97–100
[2017-04-25] MEDS: INSULIN ASPART SUPPLEMENTAL SCALE SQ SCH ×4 (00:17→18:00)
[2017-04-25] MEDS: ENOXAPARIN SODIUM 30 MG/0.3 ML SYRINGE SQ SCH ×2 (00:18→12:29)
[2017-04-25] MEDS: ACETAMINOPHEN 1000 MG/100 ML 100 ML IV PRN (02:26)
[2017-04-25] MEDS: CHLORHEXIDINE GLUCONATE 2 % 1 PACK (2 CLOTHS) TOP SCH (04:00)
--- NOTE | 2017-04-25 04:32 | RADRPT ---
EXAM DATE/TIME: 04/25/2017 03:41 [facility] COMPARISON: CHEST SINGLE AP, April 24, 2017, 4:35. INDICATIONS : Shortness of breath. MEDICAL HISTORY : Diabetes mellitus type II. Hypertension SURGICAL HISTORY : None. ENCOUNTER: Subsequent ACUITY: 1 week PAIN SCORE: 0/10 LOCATION: Bilateral chest FINDINGS: A single AP semierect view the chest was obtained. The patient has been extubated and a tracheostomy tube has been placed. A feeding tube is now seen coursing through the esophagus and into the stomach. There has been an interval decrease in the patchy pulmonary opacities with mild residual noted in th e infrahilar regions and lung bases. The heart size is within normal limits. There is no definite ple ural effusion. There is a transverse fracture again noted through the left mid clavicle. CONCLUSION: 1. Interval extubation and placement of tracheostomy tube. 2. Interval removal of nasogastric tube and placement of feeding tube. 3. Mild residual patchy opacity remains at the lung bases. Forest Ahuja MD on April 25, 2017 at 4:29 Board Certified Radiologist. This report was verified electronically.
[2017-04-25] MEDS: PIPERACIL-TAZO 3.375 GM PREMIX 50 ML IV SCH ×4 (04:44→22:10)
[2017-04-25] MEDS: PROPRANOLOL HCL 10 MG TAB PO SCH ×3 (05:50→21:59)
[2017-04-25] MEDS: PHENYTOIN INJ 100 MG/2 ML VIAL IV PUSH SCH ×3 (05:50→21:51)
[2017-04-25] MEDS: MAGNESIUM HYDROXIDE SUSP 30 ML CUP PO SCH ×2 (06:23→18:05)
[2017-04-25 06:52] LABS: AUTOMATED NEUTROPHIL # 9.4 TH/MM3 (1.8-7.7); BASOPHIL # 0.1 TH/MM3 (0-0.2); BASOPHIL % 0.6 % (0.0-2.0); EOSINOPHIL # 0.4 TH/MM3 (0-0.4); LYMPH % 19.3 % (9.0-44.0); LYMPHOCYTE # 2.8 TH/MM3 (1.0-4.8); MEAN CELL VOLUME 85.5 FL (80.0-100.0); MEAN CORPUSCULAR HEMOGLOBIN 28.6 PG (27.0-34.0); MEAN CORPUSCULAR HGB CONC 33.5 % (32.0-36.0); NEUT % 65.1 % (16.0-70.0); PLATELET COUNT 331 TH/MM3 (150-450); RED BLOOD COUNT 3.86 MIL/MM3 (4.50-5.90); RED CELL DISTRIBUTION WIDTH 13.8 % (11.6-17.2); WHITE BLOOD COUNT 14.4 TH/MM3 (4.0-11.0)
[2017-04-25 06:56] LABS: HEMO FLAGS AUTO DIFF
[2017-04-25 07:14] LABS: ALT (GPT) 32 U/L (12-78); ANION GAP 11 MEQ/L (5-15); AST (GOT) 24 U/L (15-37); BICARBONATE 22.2 MEQ/L (21.0-32.0); BLOOD UREA NITROGEN 11 MG/DL (7-18); CHLORIDE 109 MEQ/L (98-107); GLOMERULAR FILTRATION RATE 138 ML/MIN (>89); MAGNESIUM 2.2 MG/DL (1.5-2.5); POTASSIUM 4.3 MEQ/L (3.5-5.1); SODIUM (NA) 142 MEQ/L (136-145)
[2017-04-25 07:16] LABS: ALKALINE PHOSPHATASE 335 U/L (45-117); TOTAL BILIRUBIN ADULT 0.5 MG/DL (0.2-1.0)
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
[2017-04-25 07:58] LABS: BANDS 12 % (0-6); EOSINOPHILS 3 % (0-4); METAMYELOCYTES 1 % (0-1); MYELOCYTES 4 % (0-0); NEUTROPHIL # MANUAL DIFF 9.6 TH/MM3 (1.8-7.7); POLYS (SEG NEUTROPHILS) 50 % (16-70); WBC DIFF SAMPLE 100
[2017-04-25 07:59] LABS: PLATELET ESTIMATE SMEAR NORMAL (NORMAL); PLATELET MORPHOLOGY NORMAL (NORMAL); SCAN/DIFF FINAL DIFF MANUAL
[2017-04-25] MEDS: CHLORHEXIDINE 0.12% (ORAL KIT) 15 ML CUP MT SCH ×2 (08:00→20:00)
[2017-04-25] MEDS: LACTULOSE SYRUP 20 GM/30 ML CUP PO SCH (08:08)
[2017-04-25] MEDS: DOCUSATE SODIUM 50 MG/SENNA 8.6 MG TAB PO SCH ×2 (08:08→21:00)
[2017-04-25] MEDS: FAMOTIDINE 20 MG/2 ML VIAL IV PUSH SCH ×2 (08:09→22:11)
[2017-04-25] MEDS: ARTIFICIAL TEARS OPTH OINT 3.5 APPLIC/3.5 GM TUBO EACH EYE SCH ×2 (08:09→21:00)
[2017-04-25] MEDS: levETIRAcetam INJ 500 MG in SODIUM CHLORIDE 0.9% INJ 100 ML IV SCH ×2 (08:09→22:08)
[2017-04-25] MEDS: QUEtiapine FUMARATE 25 MG TAB PO SCH ×2 (08:09→22:11)
[2017-04-25] MEDS: fentaNYL DRIP 250 ML IV PRN (08:10)
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
[2017-04-25] MEDS: INSULIN DETEMIR 100 UNITS/ML VIAL SQ SCH ×2 (09:30→22:10)
[2017-04-25] MEDS: oxyCODONE HCL ORAL CONC 5 MG/0.25 ML SYRINGE PO SCH ×5 (10:00→23:56)
[2017-04-25] MEDS: fentaNYL 25 MCG/HR PATCH T-DERMAL SCH (10:00)
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
[2017-04-25] MEDS: MORPHINE SULFATE 4 MG/ML INJ IV PUSH PRN (14:00)
[2017-04-25] MEDS: COLLAGENASE OINT 30 GM TUBE TOPICAL SCH (15:23)
[2017-04-25 16:34] LABS: BACTERIA, URINE RARE /hpf; BLOOD, URINE MOD (NEG); GLUCOSE,URINE 1000 mg/dL (NEG); KETONE, URINE 150 mg/dL (NEG); MUCUS URINE FEW /lpf (OCC); NITRITE,URINE NEG (NEG); PH, URINE 5.5 (5.0-8.5); SQUAMOUS EPITHELIAL CELL URINE <1 /hpf (0-5); URINE COLOR YELLOW (YELLW/STRAW)
[2017-04-25 16:35] LABS: COMMENT (UR) CATH-CULTURE IND; CULTURE IF INDICATED CATH CULTURE IND
[2017-04-26] VITALS (14 sets, daily range): BP systolic 133–144; BP diastolic 63–91; PULSE 96–127; RESP 18–25; TEMP 98.1–100.5; O2SAT 95–100
[2017-04-26] MEDS: ENOXAPARIN SODIUM 30 MG/0.3 ML SYRINGE SQ SCH (00:07)
[2017-04-26] MEDS: INSULIN ASPART SUPPLEMENTAL SCALE SQ SCH ×4 (00:08→18:00)
[2017-04-26] MEDS: oxyCODONE HCL ORAL CONC 5 MG/0.25 ML SYRINGE PO SCH ×6 (02:00→21:29)
[2017-04-26] MEDS: CHLORHEXIDINE GLUCONATE 2 % 1 PACK (2 CLOTHS) TOP SCH (04:00)
[2017-04-26] MEDS: MORPHINE SULFATE 4 MG/ML INJ IV PUSH PRN ×3 (04:00→21:38)
[2017-04-26] MEDS: PIPERACIL-TAZO 3.375 GM PREMIX 50 ML IV SCH ×4 (04:00→22:38)
[2017-04-26] MEDS: MAGNESIUM HYDROXIDE SUSP 30 ML CUP PO SCH ×2 (04:47→18:21)
[2017-04-26] MEDS: PHENYTOIN INJ 100 MG/2 ML VIAL IV PUSH SCH ×3 (05:40→21:28)
[2017-04-26] MEDS: PROPRANOLOL HCL 10 MG TAB PO SCH ×3 (05:40→21:29)
[2017-04-26] MEDS: DOCUSATE SODIUM 50 MG/SENNA 8.6 MG TAB PO SCH ×2 (07:56→21:29)
[2017-04-26] MEDS: LACTULOSE SYRUP 20 GM/30 ML CUP PO SCH (07:56)
[2017-04-26] MEDS: CHLORHEXIDINE 0.12% (ORAL KIT) 15 ML CUP MT SCH ×2 (08:00→21:27)
[2017-04-26] MEDS: ARTIFICIAL TEARS OPTH OINT 3.5 APPLIC/3.5 GM TUBO EACH EYE SCH ×2 (08:02→21:28)
[2017-04-26] MEDS: levETIRAcetam INJ 500 MG in SODIUM CHLORIDE 0.9% INJ 100 ML IV SCH ×2 (08:03→21:28)
[2017-04-26] MEDS: QUEtiapine FUMARATE 25 MG TAB PO SCH ×2 (08:03→21:29)
[2017-04-26] MEDS: FAMOTIDINE 20 MG TAB PO SCH ×2 (08:03→21:28)
[2017-04-26] MEDS: INSULIN DETEMIR 100 UNITS/ML VIAL SQ SCH ×2 (08:04→21:55)
[2017-04-26] MEDS: COLLAGENASE OINT 30 GM TUBE TOPICAL SCH (08:04)
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
[2017-04-26 10:17] LABS: AUTOMATED NEUTROPHIL # 9.7 TH/MM3 (1.8-7.7); BASOPHIL # 0.1 TH/MM3 (0-0.2); BASOPHIL % 0.5 % (0.0-2.0); EOSINOPHIL # 0.6 TH/MM3 (0-0.4); EOSINOPHIL % 3.9 % (0.0-4.0); HEMATOCRIT 33.1 % (39.0-51.0); HEMO FLAGS AUTO DIFF; LYMPH % 19.2 % (9.0-44.0); LYMPHOCYTE # 2.7 TH/MM3 (1.0-4.8); MEAN CELL VOLUME 85.5 FL (80.0-100.0); MEAN CORPUSCULAR HEMOGLOBIN 28.5 PG (27.0-34.0); MEAN CORPUSCULAR HGB CONC 33.3 % (32.0-36.0); MONO % 8.4 % (0.0-8.0); PLATELET COUNT 341 TH/MM3 (150-450); RED BLOOD COUNT 3.87 MIL/MM3 (4.50-5.90); RED CELL DISTRIBUTION WIDTH 14.1 % (11.6-17.2); WHITE BLOOD COUNT 14.3 TH/MM3 (4.0-11.0)
[2017-04-26 10:57] LABS: BANDS 8 % (0-6); EOSINOPHILS 1 % (0-4); METAMYELOCYTES 2 % (0-1); MYELOCYTES 5 % (0-0); NEUTROPHIL # MANUAL DIFF 8.7 TH/MM3 (1.8-7.7); POLYS (SEG NEUTROPHILS) 46 % (16-70); WBC DIFF SAMPLE 100
[2017-04-26 10:58] LABS: PLATELET ESTIMATE SMEAR NORMAL (NORMAL); PLATELET MORPHOLOGY NORMAL (NORMAL); POLYCHROMASIA 2.3 % (0.0-1.9); SCAN/DIFF FINAL DIFF MANUAL
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
[2017-04-26] MEDS ORDERED: LIDOCAINE HCL 2% 50 ML VIAL ONE (14:48)
[2017-04-26] MEDS ORDERED: NEOMYCIN/POLYMYXIN 1 ML G.U. IRRIGANT ONE (14:51)
--- NOTE | 2017-04-26 15:52 | HHI.GIFU ---
GI Follow-up Note Consult Follow-up Subjective: Patient laying in bed comfortably, no new complaints, on ventilator Objective: PHYSICAL EXAMINATION: Vitals signs stable No fever HEENT: Pupils round and reactive to light; normocephalic; atraumatic; no jaundice. Throat is clear. NECK: Neck is supple, no JVD, no lymphadenopathy. CHEST: Chest is clear to auscultation and percussion. CARDIAC: Regular rate and rhythm with no murmur gallop or rubs. ABDOMEN: Soft, nondistended, nontender; no hepatosplenomegaly; bowel sounds are present in all four quadrants. EXTREMITIES: No clubbing, cyanosis, or edema. SKIN: Normal; no rash; no jaundice. CONTROL VALVE TECHNICIAN: No focal deficits; alert and oriented times three. Available Data (labs, X- Rays, Procedues) : Last Impressions Chest X-Ray 04/25/17 0600 Signed Impressions: Service Date/Time: Tuesday, April 25, 2017 03:41 - CONCLUSION: 1. Interval extubation and placement of tracheostomy tube. 2. Interval removal of nasogastric tube and placement of feeding tube. 3. Mild residual patchy opacity remains at the lung bases. Forest Ahuja MD Abdomen X-Ray 04/24/17 0000 Signed Impressions: Service Date/Time: Monday, April 24, 2017 13:43 - CONCLUSION: 1. Feeding type ([place]) nasoenteric catheter in the body of the stomach. 2. A suction type nasogastric catheter is not visualized. If exam is performed to evaluate for suction type catheter, recommend radiograph of the chest to determine location. Den Gooden MD Head CT 04/22/17 0810 Signed Impressions: Service Date/Time: Saturday, April 22, 2017 09:59 - CONCLUSION: 1. Stable exam with small sites of hemorrhage as detailed above. No acute hemorrhage. No herniation. Elvis Cleaning Jr., MD Wrist X-Ray 04/19/17 0000 Signed Impressions: Service Date/Time: Wednesday, April 19, 2017 04:54 - CONCLUSION: Status post ORIF of a fracture the proximal aspect of the first metacarpal and removal of foreign material. Jonathan Henry MD Thoracic Spine CT 04/18/17 0523 Signed Impressions: Service Date/Time: Tuesday, April 18, 2017 06:10 - CONCLUSION: No acute disease. Jonathan Henry MD Pelvis X-Ray 04/18/17 0523 Signed Impressions: Service Date/Time: Tuesday, April 18, 2017 05:21 - CONCLUSION: Foreign material. Jonathan Henry MD Lumbar Spine CT 04/18/17 0523 Signed Impressions: Service Date/Time: Tuesday, April 18, 2017 06:10 - CONCLUSION: 1. No acute abnormality seen. 2. Chronic mild disc bulge with posterior osteophytes at the L5-S1 level. 3. Prominent osteophytes at the anterior right lateral L1-L2 level. Jonathan Henry MD Chest CT 04/18/17 0523 Signed Impressions: Service Date/Time: Tuesday, April 18, 2017 06:10 - CONCLUSION: 1. Left chest tube with a small residual pneumothorax at the anterior medial left chest. 2. Bilateral areas of suspected contusion or atelectasis again worse on the left. 3. The mediastinal structures are intact. 4. Left mid clavicle fracture. Jonathan Henry MD Cervical Spine CT 04/18/17 0523 Signed Impressions: Service Date/Time: Tuesday, April 18, 2017 06:01 - CONCLUSION: 1. No acute abnormality within the cervical spine. 2. There is mild chronic change with hypertrophy at the left C2-3 facet joint and calcification of the anterior C6- C7 disc margin. Jonathan Henry MD Abdomen/Pelvis CT 04/18/17 0523 Signed Impressions: Service Date/Time: Tuesday, April 18, 2017 06:10 - CONCLUSION: 1. No acute abdominal or pelvic abnormality is seen. 2. Hepatic steatosis. 3. Air in the femoral veins bilaterally being more prominent the left. There is a right femoral vein catheter in place. Jonathan Henry MD Neck CTA 04/18/17 0000 Signed Impressions: Service Date/Time: Wednesday, April 19, 2017 00:45 - CONCLUSION: Normal examination. Jonathan Henry MD Head CTA 04/18/17 0000 Signed Impressions: Service Date/Time: Wednesday, April 19, 2017 00:45 - CONCLUSION: Negative CTA of the intracranial circulation. Jonathan Henry MD Laboratory Tests Test 04/25/17 06:13 04/25/17 14:10 12/5/17 09:00 White Blood Count 14.4 TH/MM3 14.3 TH/MM3 Red Blood Count 3.86 MIL/MM3 3.87 MIL/MM3 Hemoglobin 11.0 GM/DL 11.0 GM/DL Hematocrit 33.0 % 33.1 % Mean Corpuscular Volume 85.5 FL 85.5 FL Mean Corpuscular Hemoglobin 28.6 PG 28.5 PG Mean Corpuscular Hemoglobin Concent 33.5 % 33.3 % Red Cell Distribution Width 13.8 % 14.1 % Platelet Count 331 TH/MM3 341 TH/MM3 Mean Platelet Volume 7.6 FL 8.3 FL Neutrophils (%) (Auto) 65.1 % 68.0 % Lymphocytes (%) (Auto) 19.3 % 19.2 % Monocytes (%) (Auto) 12.0 % 8.4 % Eosinophils (%) (Auto) 3.0 % 3.9 % Basophils (%) (Auto) 0.6 % 0.5 % Neutrophils # (Auto) 9.4 TH/MM3 9.7 TH/MM3 Lymphocytes # (Auto) 2.8 TH/MM3 2.7 TH/MM3 Monocytes # (Auto) 1.7 TH/MM3 1.2 TH/MM3 Eosinophils # (Auto) 0.4 TH/MM3 0.6 TH/MM3 Basophils # (Auto) 0.1 TH/MM3 0.1 TH/MM3 CBC Comment AUTO DIFF AUTO DIFF Differential Total Cells Counted 100 100 Neutrophils % (Manual) 50 % 46 % Band Neutrophils % 12 % 8 % Lymphocytes % 19 % 26 % Monocytes % 11 % 12 % Eosinophils % 3 % 1 % Neutrophils # (Manual) 9.6 TH/MM3 8.7 TH/MM3 Metamyelocytes 1 % 2 % Myelocytes 4 % 5 % Differential Comment FINAL DIFF MANUAL FINAL DIFF MANUAL Platelet Estimate NORMAL NORMAL Platelet Morphology Comment NORMAL NORMAL Blood Urea Nitrogen 11 MG/DL Creatinine 0.66 MG/DL Random Glucose 201 MG/DL Total Protein 6.9 GM/DL Albumin 2.0 GM/DL Calcium Level 8.6 MG/DL Magnesium Level 2.2 MG/DL Alkaline Phosphatase 335 U/L Aspartate Amino Transf (AST/SGOT) 24 U/L Alanine Aminotransferase (ALT/SGPT) 32 U/L Total Bilirubin 0.5 MG/DL Sodium Level 142 MEQ/L Potassium Level 4.3 MEQ/L Chloride Level 109 MEQ/L Carbon Dioxide Level 22.2 MEQ/L Anion Gap 11 MEQ/L Estimat Glomerular Filtration Rate 138 ML/MIN Urine Color YELLOW Urine Turbidity CLEAR Urine pH 5.5 Urine Specific [place] 1.029 Urine Protein 30 mg/dL Urine Glucose (UA) 1000 mg/dL Urine Ketones 150 mg/dL Urine Occult Blood MOD Urine Nitrite NEG Urine Bilirubin NEG Urine Urobilinogen LESS THAN 2.0 MG/DL Urine Leukocyte Esterase NEG Urine RBC 5 /hpf Urine WBC 1 /hpf Urine Squamous Epithelial Cells <1 /hpf Urine Amorphous Sediment RARE Urine Bacteria RARE /hpf Urine Mucus FEW /lpf Microscopic Urinalysis Comment CATH-CULTURE IND Polychromasia 2.3 % Hematology Comments Allergies Coded Allergies Type Severity Reaction Last Updated Verified MRI PRECAUTION Allergy Unknown 04/18/17 Yes Active Scripts Medications Dose Route/Sig Max Daily Dose Days Date Category No Active Prescriptions or Reported Medications Rx ASSESSMENT/PLAN: seen and examined, EGd/Peg postponed for today due to patients hand surgery. Resume TF and stop at midnight. EGD/Peg planned for tomorrow. It was a pleasure seeing Erik Jeffrey. Thank you for this consult. Entered by: Enma Landry MD Apr 26, 2017 15:52
[2017-04-26] MEDS ORDERED: BACITRACIN TOP OINT 15 GM TUBE ONE (16:29)
[2017-04-26] MEDS ORDERED: DO NOT ADM ANY ANTICOAGULANT DRUGS PRN (17:31)
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
[2017-04-27] VITALS (18 sets, daily range): BP systolic 128–154; BP diastolic 74–91; PULSE 110–128; RESP 15–30; TEMP 99.1–100.7; O2SAT 93–96
[2017-04-27] MEDS: INSULIN ASPART SUPPLEMENTAL SCALE SQ SCH ×4 (00:50→18:00)
[2017-04-27] MEDS: oxyCODONE HCL ORAL CONC 5 MG/0.25 ML SYRINGE PO SCH ×6 (01:03→21:16)
[2017-04-27] MEDS: MORPHINE SULFATE 4 MG/ML INJ IV PUSH PRN (01:18)
[2017-04-27] MEDS: CHLORHEXIDINE GLUCONATE 2 % 1 PACK (2 CLOTHS) TOP SCH (04:00)
[2017-04-27] MEDS: PIPERACIL-TAZO 3.375 GM PREMIX 50 ML IV SCH (04:13)
[2017-04-27] MEDS: PROPRANOLOL HCL 10 MG TAB PO SCH ×3 (05:25→21:16)
[2017-04-27] MEDS: PHENYTOIN INJ 100 MG/2 ML VIAL IV PUSH SCH ×3 (05:25→21:18)
[2017-04-27] MEDS: MAGNESIUM HYDROXIDE SUSP 30 ML CUP PO SCH ×2 (06:30→18:18)
[2017-04-27] MEDS: CHLORHEXIDINE 0.12% (ORAL KIT) 15 ML CUP MT SCH ×2 (08:00→21:15)
[2017-04-27] MEDS: levETIRAcetam INJ 500 MG in SODIUM CHLORIDE 0.9% INJ 100 ML IV SCH ×2 (08:03→21:51)
[2017-04-27] MEDS: INSULIN DETEMIR 100 UNITS/ML VIAL SQ SCH ×2 (08:03→21:16)
[2017-04-27] MEDS: FAMOTIDINE 20 MG TAB PO SCH ×2 (08:03→21:17)
[2017-04-27] MEDS: QUEtiapine FUMARATE 25 MG TAB PO SCH ×2 (08:03→21:16)
[2017-04-27] MEDS: LACTULOSE SYRUP 20 GM/30 ML CUP PO SCH (08:03)
[2017-04-27] MEDS: DOCUSATE SODIUM 50 MG/SENNA 8.6 MG TAB PO SCH ×2 (08:03→21:00)
[2017-04-27] MEDS: ARTIFICIAL TEARS OPTH OINT 3.5 APPLIC/3.5 GM TUBO EACH EYE SCH ×2 (08:03→21:15)
[2017-04-27] MEDS: COLLAGENASE OINT 30 GM TUBE TOPICAL SCH (09:00)
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
[2017-04-27 12:42] LABS: BICARBONATE 23.4 MEQ/L (21.0-32.0); POTASSIUM 3.1 MEQ/L (3.5-5.1)
[2017-04-27] MEDS: CEFEPIME INJ 2,000 MG in SODIUM CHLORIDE 0.9% INJ 100 ML IV SCH ×2 (13:00→21:14)
[2017-04-27] MEDS: ACETAMINOPHEN 650 MG/20.3 ML UDC PO PRN (13:01)
--- NOTE | 2017-04-27 15:24 | GIPROC ---
[facility] [address] [facility]. [facility], [address] EGD WITH PEG PROCEDURE REPORT EXAM DATE: 04/27/2017 PATIENT NAME: Erik Jeffrey MR#: [id number] BIRTHDATE: 1980 ATTENDING: Enma Carreno MD ORDER #: [id number] MULTIFOCAL BUTTON GENERATOR: Brian Quiles and Noemí Alejandro STATUS: inpatient INDICATIONS: The patient is a 36 yr old male here for an EGD with PEG due to dysphagia and placement of PEG PROCEDURE PERFORMED: EGD with PEG placement MEDICATIONS: None and Per Anesthesia. TOPICAL ANESTHETIC: Xylocaine 1% CONSENT: The patient understands the risks and benefits of the procedure and understands that these risks include, but are not limited to: sedation, allergic reaction, infection, perforation and/or bleeding. Alternative means of evaluation and treatment include, among others: physical exam, x-rays, and/or surgical intervention. The patient elects to proceed with this endoscopic procedure. medical equipment was checked for proper function. Hand hygiene and appropriate measures for infection prevention was taken. After the risks, benefits and alternatives of the procedure were thoroughly explained, Informed consent was verified, confirmed and timeout was successfully executed by the treatment team. The patient was anesthetized with topical anesthesia and the Pentax [id number] endoscope was introduced through the mouth and advanced to the descending duodenum. The instrument was slowly withdrawn as the mucosa was fully examined. Mild gastritis was found The stomach was then inflated with air, and by a combination of transillumination and manual palpation, the site for the gastrostomy tube placement was selected and marked on the anterior abdominal wall. The skin of the anterior abdomen was surgically prepped and draped with sterile towels. Utilizing strict sterile technique, the selected site was then anesthetized with 1% xylocaine by injection into the skin and subcutaneous tissue. A 1 cm incision was made through the skin and subcutaneous tissue, and the needle/cannula assembly was then passed through the abdominal wall and through the anterior wall of the stomach, maintaining visualization with the endoscope. A snare device previously placed through the instrument channel was then opened and placed around the cannula, the needle was removed, and the insertion wire was passed through the cannula and into the stomach lumen. The snare was then loosened from the cannula, and repositioned to snare the insertion wire. The snare was then pulled up to the endoscope distal tip, and the scope was then withdrawn bringing with it the snare and insertion wire. The insertion wire was then released from the snare, and then loop-attached to the Bard 20 Fr gastrostomy tube. Using the "pull technique", the G-tube was then pulled into place by traction on the insertion wire at the abdominal wall end. The G-tube insertion site was then cleansed once again, and the external bolster was placed over the tube to secure it to the abdominal wall. A sterile dressing was then applied, and the procedure terminated. no abnormalities The gastroscope was then slowly withdrawn and removed. ADVERSE EVENT: There were no complications. IMPRESSIONS: 1. Mild gastritis was found 2. No abnormalities RECOMMENDATIONS: PEG recomendations: 1- NPO for 6 hours except for meds 2- Flush PEG tube every 6 hours with water and after each PEG feeding 3- May resume regular diet in the morning 4- May use Ensure or Boost etc. for PEG tube feeding REPEAT EXAM: procedure as needed Enma Carreno MD eSigned: Enma Carreno MD 04/27/2017 3:24 PM cc: PATIENT NAME: Erik Jeffrey MR#: [id number]
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
[2017-04-28] VITALS (18 sets, daily range): BP systolic 127–148; BP diastolic 75–91; PULSE 93–122; RESP 18–26; TEMP 99.1–101.5; O2SAT 93–99
[2017-04-28] MEDS: ACETAMINOPHEN 650 MG/20.3 ML UDC PO PRN ×2 (00:19→08:00)
[2017-04-28] MEDS: INSULIN ASPART SUPPLEMENTAL SCALE SQ SCH ×4 (00:19→18:07)
[2017-04-28] MEDS: oxyCODONE HCL ORAL CONC 5 MG/0.25 ML SYRINGE PO SCH ×5 (02:06→22:05)
[2017-04-28] MEDS: CEFEPIME INJ 2,000 MG in SODIUM CHLORIDE 0.9% INJ 100 ML IV SCH ×3 (03:17→19:49)
[2017-04-28] MEDS: CHLORHEXIDINE GLUCONATE 2 % 1 PACK (2 CLOTHS) TOP SCH (03:17)
--- NOTE | 2017-04-28 04:52 | RADRPT ---
EXAM DATE/TIME: 04/28/2017 03:46 [place] COMPARISON: CHEST SINGLE AP, April 25, 2017, 3:41. INDICATIONS : Shortness of breath. MEDICAL HISTORY : Diabetes mellitus type II. Hypertension SURGICAL HISTORY : None. ENCOUNTER: Subsequent ACUITY: 1 week PAIN SCORE: Non-responsive. LOCATION: Bilateral chest FINDINGS: A single view of the chest demonstrates the lungs to be symmetrically aerated without a mass. The rig ht lung is clear. Mild residual opacity remains in the left lung base. Tracheostomy tube remains in p lace. The cardiomediastinal contours are unremarkable. Osseous structures are intact. CONCLUSION: 1. Mild residual opacity remains in the left lung base with mild blunting of the costophrenic angle. 2. The tracheostomy tube remains in place. Forest Ahuja MD on April 28, 2017 at 4:49 Board Certified Radiologist. This report was verified electronically.
[2017-04-28] MEDS: MAGNESIUM HYDROXIDE SUSP 30 ML CUP PO SCH ×2 (05:35→18:07)
[2017-04-28] MEDS: PHENYTOIN INJ 100 MG/2 ML VIAL IV PUSH SCH (05:35)
[2017-04-28] MEDS: PROPRANOLOL HCL 10 MG TAB PO SCH ×3 (05:35→22:05)
[2017-04-28 05:49] LABS: BASOPHIL # 0.1 TH/MM3 (0-0.2); BASOPHIL % 0.4 % (0.0-2.0); EOSINOPHIL # 0.3 TH/MM3 (0-0.4); EOSINOPHIL % 2.1 % (0.0-4.0); HEMATOCRIT 29.3 % (39.0-51.0); LYMPH % 21.9 % (9.0-44.0); LYMPHOCYTE # 3.2 TH/MM3 (1.0-4.8); MEAN CELL VOLUME 85.8 FL (80.0-100.0); MEAN CORPUSCULAR HEMOGLOBIN 29.1 PG (27.0-34.0); MEAN CORPUSCULAR HGB CONC 33.9 % (32.0-36.0); MONO % 8.2 % (0.0-8.0); NEUT % 67.4 % (16.0-70.0); PLATELET COUNT 434 TH/MM3 (150-450); RED BLOOD COUNT 3.41 MIL/MM3 (4.50-5.90); WHITE BLOOD COUNT 14.8 TH/MM3 (4.0-11.0)
[2017-04-28 05:57] LABS: HEMO FLAGS AUTO DIFF
[2017-04-28 06:05] LABS: BICARBONATE 26.1 MEQ/L (21.0-32.0); POTASSIUM 3.2 MEQ/L (3.5-5.1)
[2017-04-28] MEDS: POTASSIUM CHLOR 20 MEQ PREMIX 100 ML IV PRN ×5 (06:28→15:22)
[2017-04-28 07:25] LABS: BANDS 15 % (0-6); BASOPHILS 1 % (0-2); CORRECTED NUCLEATED RBC 1 /100 WBC (0-0); EOSINOPHILS 4 % (0-4); METAMYELOCYTES 2 % (0-1); MYELOCYTES 3 % (0-0); NEUTROPHIL # MANUAL DIFF 11.7 TH/MM3 (1.8-7.7); PLATELET ESTIMATE SMEAR HIGH (NORMAL); PLATELET MORPHOLOGY NORMAL (NORMAL); POLYS (SEG NEUTROPHILS) 59 % (16-70); WBC DIFF SAMPLE 100
[2017-04-28 07:26] LABS: SCAN/DIFF FINAL DIFF MANUAL
[2017-04-28] MEDS: ARTIFICIAL TEARS OPTH OINT 3.5 APPLIC/3.5 GM TUBO EACH EYE SCH ×2 (07:58→20:24)
[2017-04-28] MEDS: CHLORHEXIDINE 0.12% (ORAL KIT) 15 ML CUP MT SCH ×2 (07:58→19:49)
[2017-04-28] MEDS: COLLAGENASE OINT 30 GM TUBE TOPICAL SCH (07:59)
[2017-04-28] MEDS: QUEtiapine FUMARATE 25 MG TAB PO SCH (07:59)
[2017-04-28] MEDS: INSULIN DETEMIR 100 UNITS/ML VIAL SQ SCH ×2 (07:59→21:07)
[2017-04-28] MEDS: LACTULOSE SYRUP 20 GM/30 ML CUP PO SCH (07:59)
[2017-04-28] MEDS: DOCUSATE SODIUM 50 MG/SENNA 8.6 MG TAB PO SCH ×2 (07:59→20:24)
[2017-04-28] MEDS: FAMOTIDINE 20 MG TAB PO SCH ×2 (07:59→20:24)
[2017-04-28] MEDS: levETIRAcetam INJ 500 MG in SODIUM CHLORIDE 0.9% INJ 100 ML IV SCH (07:59)
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
--- NOTE | 2017-04-28 09:30 | HHI.NSPN ---
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 mls/hr Q2H PRN IV For Potassium 2.8 - 3.2 mEq/ L Last administered on 04/28/17 15:22; Start 04/18/17 at 16:15 Potassium Chloride 100 ml @ 25 mls/hr UNSCH PRN IV-CENTRAL For Potassium 3.3 - 3.5 mEq/L; Start 04/18/17 at 16:15 Potassium Chloride 100 ml @ 50 mls/hr Q2H PRN IV For Potassium 3.3 - 3.5 mEq/ L Last administered on 04/29/17 13:22; Start 04/18/17 at 16:15 Magnesium Sulfate 4 gm/Sodium Chloride 100 ml @ 50 mls/hr UNSCH PRN IV For Magnesium 0.9 - 1.1 mg/dL; Start 04/18/17 at 16:15 Magnesium Oxide (Mag-Ox) 800 mg UNSCH PRN PO For Magnesium 1.2 - 1.6 mg/dL; Start 04/18/17 at 16:15 Magnesium Sulfate 2 gm/Sodium Chloride 100 ml @ 50 mls/hr UNSCH PRN IV For Magnesium 1.2 - 1.6 mg/dL; Start 04/18/17 at 16:15 Potassium Phosphate (K-Phos) 2,000 mg Q4H PRN PO For Phosphorus < 2.5 mg/dL; Start 04/18/17 at 16:15 Sodium Phosphate 30 mmol/Sodium Chloride 250 ml @ 42 mls/hr UNSCH PRN IV For Phosphorus < 2.5 mg/dL Last administered on 04/23/17 10:50; Start 04/18/17 at 16:15 Potassium Phosphate (K-Phos) 2,000 mg UNSCH PRN PO/TUBE SEE LABEL COMMENTS; Start 04/18/17 at 16:15 Potassium Phosphate 30 mmol/ Sodium Chloride 260 ml @ 42 mls/hr UNSCH PRN IV SEE LABEL COMMENTS; Start 04/18/17 at 16:15 Potassium Chloride (KCl Powder) 40 meq DAILY PRN PO For Potassium 3.3 - 3.5 mEq /L Last administered on 04/27/17 13:02; Start 04/18/17 at 16:15 Sodium Chloride 1,000 ml @ 999 mls/hr BOLUS ONCE IV Last administered on 16:58; Start 04/18/17 at 16:45; Stop 04/18/17 at 17:45; Status DC Vancomycin HCl 1250 mg/Sodium Chloride 262.5 ml @ 262.5 mls/ hr ONCE ONCE IV Last administered on 04/18/17 18:20; Start 04/18/17 at 17:00; Stop 04/18/17 at 17:59; Status DC Piperacillin Sod/ Tazobactam Sod 50 ml @ 100 mls/hr Q6H IV Last administered on 04/27/17 04:13; Start 04/18/17 at 17:00; Stop 04/27/17 at 11:03; Status DC Neomycin/Polymyxin (Neosporin G.u. Irr) 3 ml STK-MED ONCE .ROUTE ; Start at 20:39; Stop 04/18/17 at 20:40; Status DC Sodium Chloride 240 meq/Syringe / Bag 60 ml @ 120 mls/hr ONCE ONCE IV ; Start 04/18/17 at 21:15; Stop 04/18/17 at 21:44; Status DC Neomycin/Polymyxin (Neosporin G.u. Irr) 1 ml ONCE ONCE IRRIGATION Last administered on 04/18/17 22:03; Start 04/18/17 at 22:42; Stop 04/18/17 at 22 :47; Status DC Influenza Virus Vaccine (Flu (Quadrivalent) Vaccine Inj) 0.5 ml ONCE ONCE IM Last administered on 04/19/17 11:05; Start 04/19/17 at 09:00; Stop 04/19/17 at 09:01; Status DC Phenylephrine HCl (Neosynephrine Inj) 10 mg STK-MED ONCE .ROUTE ; Start at 00:00; Stop 04/19/17 at 00:01; Status DC Iohexol (Omnipaque 350 Inj) 75 ml STK-MED ONCE IVCONTRAST Last administered on 04/19/17 00:58; Start 04/19/17 at 00:58; Stop 04/19/17 at 00:59; Status DC Phenylephrine HCl (Neosynephrine Inj) 10 mg STK-MED ONCE .ROUTE ; Start at 02:18; Stop 04/19/17 at 02:19; Status DC Phenylephrine HCl 40 mg/Dextrose 500 ml @ 30 mls/hr TITRATE PRN IV Blood Pressure Management Last administered on 04/19/17 01:15; Start 04/19/17 at 02 :45; Stop 04/19/17 at 06:30; Status DC Fosphenytoin Sodium 1000 mgpe/ Sodium Chloride 70 ml @ 280 mls/hr ONCE ONCE IV Last administered on 04/19/17 02:49; Start 04/19/17 at 02:45; Stop 04/19 at 02:59; Status DC Phenylephrine HCl (Neosynephrine Inj) 40 mg STK-MED ONCE .ROUTE Last administered on 04/19/17 06:15; Start 04/19/17 at 04:58; Stop 04/19/17 at 04 :59; Status DC Phenylephrine HCl 40 mg/Sodium Chloride 500 ml @ 30 mls/hr TITRATE PRN IV Blood Pressure Management Last administered on 04/19/17 06:38; Start at 06:45; Stop 04/23/17 at 15:51; Status DC Sodium Chloride 250 ml @ 20 mls/hr ONCE ONCE IV Last administered on 10:00; Start 04/19/17 at 07:00; Stop 04/19/17 at 19:29; Status DC Fosphenytoin Sodium (Cerebyx Inj) 100 mgpe Q8HR IV Last administered on 06:42; Start 04/19/17 at 07:15; Stop 04/21/17 at 09:12; Status DC Potassium Chloride/Sodium Chloride 1,000 ml @ 60 mls/hr [id number] IV Last administered on 04/23/17 06:01; Start 04/19/17 at 07:30; Stop 04/23/17 at 09: 21; Status DC Norepinephrine Bitartrate 4 mg/ Sodium Chloride 250 ml @ 7.5 mls/hr TITRATE PRN IV Blood pressure management Last administered on 04/19/17 10:00; Start 04/19/17 at 07:45; Stop 04/19/17 at 14:31; Status DC Terbutaline Sulfate (Brethine Inj) 1 mg UNSCH PRN SQ For Extravasation; Start 04/19/17 at 07:45; Stop 04/23/17 at 15:51; Status DC Artificial Tears (Lacrilube Opht Oint) 1 applic Q12HR EACH EYE Last administered on 05/01/17 08:40; Start 04/19/17 at 21:00 Norepinephrine Bitartrate 4 mg/ Sodium Chloride 250 ml @ 7.5 mls/hr TITRATE PRN IV Blood pressure management Last administered on 04/20/17 09:48; Start 04/19/17 at 14:30; Stop 04/23/17 at 15:51; Status DC Sodium Chloride 500 ml @ 10 mls/hr CONTINUOUS IV Last administered on 20:08; Start 04/20/17 at 08:15; Stop 04/24/17 at 10:00; Status DC Dextrose (D50w (Vial) Inj) 50 ml UNSCH PRN IV PUSH HYPOGLYCEMIA-SEE COMMENTS; Start 04/20/17 at 09:00; Stop 04/21/17 at 09:42; Status DC Glucagon (Glucagon Inj) 1 mg UNSCH PRN OTHER HYPOGLYCEMIA-SEE COMMENTS; Start 04/20/17 at 09:00; Stop 04/21/17 at 09:42; Status DC Insulin Aspart (NovoLOG SUPPLEMENTAL SCALE) 1 Q6HR SQ ; Start 04/20/17 at 12:00 ; Stop 04/21/17 at 09:42; Status DC Fentanyl Citrate 250 ml @ 5 mls/hr TITRATE PRN IV Sedation Last administered on 04/25/17 08:10; Start 04/20/17 at 09:30; Stop 04/25/17 at 09:29; Status DC Furosemide (Lasix Inj) 40 mg ONCE ONCE IV PUSH Last administered on 12:14; Start 04/20/17 at 09:30; Stop 04/20/17 at 10:56; Status DC Midazolam HCl (Versed Inj) 5 mg ONCE ONCE IV Last administered on 04/20/17 17:43; Start 04/20/17 at 17:30; Stop 04/20/17 at 17:31; Status DC Lactulose (Lactulose Liq) 30 ml DAILY PO Last administered on 04/29/17 08:10; Start 04/21/17 at 06:30 Magnesium Hydroxide (Milk Of Magnesia Liq) 30 ml Q12H PO Last administered on 04/29/17 05:41; Start 04/21/17 at 06:30 Phenytoin Sodium (Dilantin Inj) 100 mg Q8HR IV PUSH Last administered on 05:35; Start 04/21/17 at 14:00; Stop 04/28/17 at 11:38; Status DC Phenytoin (Dilantin Liq) 100 mg Q8HR PO ; Start 04/21/17 at 09:15; Stop 04/21 at 09:15; Status DC Insulin Aspart (NovoLOG SUPPLEMENTAL SCALE) 1 Q6HR SQ Last administered on 17:17; Start 04/21/17 at 12:00 Dextrose (D50w (Syr) Inj) 50 ml UNSCH PRN IV PUSH HYPOGLYCEMIA-SEE COMMENTS; Start 04/21/17 at 09:30 Glucagon (Glucagon Inj) 1 mg UNSCH PRN OTHER HYPOGLYCEMIA-SEE COMMENTS; Start 04/21/17 at 09:30 Enoxaparin Sodium (Lovenox Inj) 30 mg Q12H SQ Last administered on 05/01/17 00:25; Start 04/21/17 at 13:00; Status Future hold Bisacodyl (Dulcolax Supp) 10 mg ONCE ONCE RECTAL Last administered on 08:00; Start 04/22/17 at 08:00; Stop 04/22/17 at 08:01; Status DC Parenteral Electrolytes 3,000 ml @ As Directed STK-MED ONCE IV ; Start at 12:00; Stop 04/22/17 at 08:36; Status DC Rocuronium Brea (Zemuron Inj) 50 mg STK-MED ONCE IV PUSH ; Start 04/18/17 at 12:00; Stop 04/22/17 at 08:36; Status DC Phenylephrine HCl (Neosynephrine/ NS 1000 Mcg/10ml Syr) 1,000 mcg STK-MED ONCE IV ; Start 04/18/17 at 12:00; Stop 04/22/17 at 08:36; Status DC Vecuronium Brea (Norcuron 20 Mg Inj) 20 mg STK-MED ONCE IV ; Start 04/18/17 at 12:00; Stop 04/22/17 at 08:36; Status DC Midazolam HCl (Versed Inj) 2 mg STK-MED ONCE IV ; Start 04/18/17 at 12:00; Stop 04/22/17 at 08:36; Status DC Fentanyl Citrate (fentaNYL INJ) 200 mcg STK-MED ONCE IV ; Start 04/18/17 at 12: 00; Stop 04/22/17 at 08:36; Status DC Propofol (Diprivan 200 Mg/20 ml Inj) 200 mg STK-MED ONCE IV ; Start 04/18/17 at 12:00; Stop 04/22/17 at 08:36; Status DC Sterile Water (Sterile Water For Injection) 20 ml STK-MED ONCE IV ; Start 04/18 at 12:00; Stop 04/22/17 at 08:36; Status DC Sodium Chloride (Sodium Chloride 0.9% Inj) 20 ml STK-MED ONCE IV ; Start at 12:00; Stop 04/22/17 at 08:36; Status DC Lactated Ringer's 1,000 ml @ As Directed STK-MED ONCE IV ; Start 04/18/17 at 21:00; Stop 04/22/17 at 08:42; Status DC Phenylephrine HCl (Neosynephrine/ NS 1000 Mcg/10ml Syr) 2,000 mcg STK-MED ONCE IV ; Start 04/18/17 at 21:00; Stop 04/22/17 at 08:42; Status DC Phenylephrine HCl (Neosynephrine Inj) 20 mg STK-MED ONCE IV ; Start 04/18/17 at 21:00; Stop 04/22/17 at 08:42; Status DC Vecuronium Brea (Norcuron 20 Mg Inj) 20 mg STK-MED ONCE IV ; Start 04/18/17 at 21:00; Stop 04/22/17 at 08:42; Status DC Chlorpromazine HCl (Thorazine Inj) 25 mg Q8H PRN IM hiccups Last administered on 04/23/17 19:44; Start 04/23/17 at 03:00; Stop 04/28/17 at 09:36; Status DC Propranolol HCl (Inderal) 10 mg Q8HR PO Last administered on 04/28/17 05:35; Start 04/23/17 at 09:15; Stop 04/28/17 at 11:38; Status DC Quetiapine Fumarate (SEROquel) 50 mg BID PO Last administered on 04/28/17 07: 59; Start 04/23/17 at 09:15; Stop 04/28/17 at 11:50; Status DC Fentanyl Citrate (fentaNYL INJ) 50 mcg [employer] IV PUSH ; Start 04/24/17 at 11: 00; Stop 04/28/17 at 10:59; Status DC Midazolam HCl (Versed Inj) 4 mg [employer] OPERATOR IV PUSH Last administered on 11:50; Start 04/24/17 at 11:00; Stop 04/26/17 at 07:28; Status DC Vecuronium Brea (Norcuron 10 Mg Inj) 10 mg Q10M PRN IV PUSH paralyzation during procedure Last administered on 04/24/17 11:49; Start 04/24/17 at 11:00; Stop 04/26/17 at 07:28; Status DC Oxycodone HCl (Roxicodone Intensol Liq) 5 mg Q4H PO Last administered on 10:20; Start 04/25/17 at 10:00; Stop 04/28/17 at 11:50; Status DC Fentanyl (Duragesic 25 Mcg Patch.72 Hr) 1 patch Q3D T-DERMAL Last administered on 04/28/17 10:20; Start 04/25/17 at 10:00; Stop 04/30/17 at 09:50 ; Status DC Insulin Detemir (Levemir Inj) 5 units Q12HR SQ Last administered on 05/01/17 08:39; Start 04/25/17 at 09:30 Miscellaneous Information 1 Q3D T-DERMAL Last administered on 04/28/17 10:00; Start 04/28/17 at 10:00; Stop 04/30/17 at 09:50; Status DC Collagenase (Santyl Oint) 1 applic DAILY TOPICAL Last administered on 08:56; Start 04/25/17 at 13:00 Morphine Sulfate (Morphine Inj) 4 mg Q3HR PRN IV PUSH breakthrough pain Last administered on 04/27/17 01:18; Start 04/25/17 at 13:30; Stop 04/28/17 at 11:51 ; Status DC Famotidine (Pepcid) 20 mg BID PO Last administered on 05/01/17 08:39; Start 04/26/17 at 09:00 Acetaminophen (Tylenol 650 Mg/ 20 ml Liq) 650 mg Q4H PRN PO Temp > 101 Last administered on 05/01/17 13:48; Start 04/26/17 at 08:00 Lidocaine HCl (Xylocaine 2% Inj) 50 ml STK-MED ONCE .ROUTE ; Start 04/26/17 at 14:48; Stop 04/26/17 at 14:49; Status DC Neomycin/Polymyxin (Neosporin G.u. Irr) 2 ml STK-MED ONCE .ROUTE ; Start at 14:51; Stop 04/26/17 at 14:52; Status DC Bacitracin (Baciguent Oint) 15 applic STK-MED ONCE .ROUTE Last administered on 04/26/17 16:29; Start 04/26/17 at 16:29; Stop 04/26/17 at 16:30; Status DC Miscellaneous Information ALL NURSING DEPARTME... UNSCH PRN .XX SEE LABEL COMMENTS; Start 04/26/17 at 17:31; Stop 04/27/17 at 17:30; Status DC Cefepime HCl 2000 mg/Sodium Chloride 100 ml @ 200 mls/hr Q8H IV Last administered on 04/29/17 12:05; Start 04/27/17 at 12:00; Stop 04/29/17 at 13:42 ; Status DC Amantadine HCl (Symmetrel) 100 mg Q24H PO Last administered on 04/28/17 13:01 ; Start 04/28/17 at 11:00; Stop 04/28/17 at 15:47; Status DC Propranolol HCl (Inderal) 30 mg Q8HR PO Last administered on 05/01/17 13:46; Start 04/28/17 at 14:00 Phenytoin (Dilantin Liq) 100 mg Q8HR PO Last administered on 05/01/17 13:46 ; Start 04/28/17 at 14:00 Morphine Sulfate (Morphine Inj) 2 mg Q3HR PRN IV PUSH breakthrough pain Last administered on 05/01/17 13:47; Start 04/28/17 at 12:00 Oxycodone HCl (Roxicodone Intensol Liq) 5 mg Q6H PO Last administered on 03:07; Start 04/28/17 at 16:00; Stop 05/01/17 at 08:16; Status DC Levetriacetam (Keppra Liq) 500 mg Q12HR NG Last administered on 05/01/17 08: 39; Start 04/28/17 at 21:00 Amantadine HCl (Symmetrel) 100 mg Q24H PO Last administered on 05/01/17 06:15 ; Start 04/29/17 at 07:00 Levofloxacin (Levaquin) 750 mg DAILY PO Last administered on 05/01/17 08:39; Start 04/29/17 at 15:00; Stop 05/09/17 at 14:59 Oxycodone HCl (Roxicodone Intensol Liq) 5 mg Q6H PRN PO pain > 3; Start at 10:00 Sodium Chloride 1,000 ml @ 84 mls/hr [id number] IV Last administered on 11:55; Start 05/01/17 at 11:00 Recent Impressions Chest X-Ray 04/28/17 0000 Signed Impressions: Service Date/Time: April 03:46 - CONCLUSION: 1. Mild residual opacity remains in the left lung base with mild blunting of the costophrenic angle. 2. The tracheostomy tube remains in place. Forest Ahuja MD (Wilfredo Wells MD) Attending Statement The exam, history, and the medical decision-making described in the above note were completed with the assistance of the mid-level provider. I reviewed and agree with the findings presented. I attest that I had a [id number] encounter with the patient on the same day, and personally performed and documented my assessment and findings in the medical record. (Wilfredo Wells MD) Mikey Faria Apr 28, 2017 09:30 Wilfredo Wells MD May 01, 2017 20:01
[2017-04-28] MEDS ORDERED: REMOVE OLD DURAGESIC (FENTANYL) PATCH T-DERMAL SCH (10:00)
[2017-04-28] MEDS: fentaNYL 25 MCG/HR PATCH T-DERMAL SCH (10:20)
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
[2017-04-28] MEDS ORDERED: AMANTADINE HCL 100 MG CAP PO SCH (11:00)
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
[2017-04-28] MEDS: ENOXAPARIN SODIUM 30 MG/0.3 ML SYRINGE SQ SCH (12:03)
[2017-04-28] MEDS: PHENYTOIN SUSP 100 MG/4 ML CUP PO SCH ×2 (13:16→22:04)
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
[2017-04-28] MEDS: levETIRAcetam 500 MG/5 ML UDC NG SCH (20:24)
[2017-04-29] VITALS (14 sets, daily range): BP systolic 122–137; BP diastolic 78–90; PULSE 92–117; RESP 18–25; TEMP 98.8–99.6; O2SAT 96–99
[2017-04-29] MEDS: ENOXAPARIN SODIUM 30 MG/0.3 ML SYRINGE SQ SCH ×2 (02:37→12:06)
[2017-04-29] MEDS: INSULIN ASPART SUPPLEMENTAL SCALE SQ SCH ×5 (02:37→23:41)
[2017-04-29] MEDS: CHLORHEXIDINE GLUCONATE 2 % 1 PACK (2 CLOTHS) TOP SCH (04:00)
[2017-04-29] MEDS: CEFEPIME INJ 2,000 MG in SODIUM CHLORIDE 0.9% INJ 100 ML IV SCH ×2 (04:22→12:05)
[2017-04-29] MEDS: oxyCODONE HCL ORAL CONC 5 MG/0.25 ML SYRINGE PO SCH ×4 (04:22→21:46)
[2017-04-29 04:58] LABS: ANION GAP 8 MEQ/L (5-15); AST (GOT) 37 U/L (15-37); BICARBONATE 27.2 MEQ/L (21.0-32.0); BLOOD UREA NITROGEN 12 MG/DL (7-18); CHLORIDE 103 MEQ/L (98-107); GLOMERULAR FILTRATION RATE 157 ML/MIN (>89); MAGNESIUM 2.2 MG/DL (1.5-2.5); POTASSIUM 3.4 MEQ/L (3.5-5.1); SODIUM (NA) 138 MEQ/L (136-145)
[2017-04-29 05:00] LABS: ALT (GPT) 37 U/L (12-78)
[2017-04-29 05:01] LABS: ALKALINE PHOSPHATASE 217 U/L (45-117); TOTAL BILIRUBIN ADULT 0.5 MG/DL (0.2-1.0)
[2017-04-29 05:07] LABS: BASOPHIL # 0.3 TH/MM3 (0-0.2); BASOPHIL % 1.5 % (0.0-2.0); EOSINOPHIL # 0.5 TH/MM3 (0-0.4); EOSINOPHIL % 3.3 % (0.0-4.0); LYMPH % 18.4 % (9.0-44.0); LYMPHOCYTE # 3.1 TH/MM3 (1.0-4.8); MEAN CELL VOLUME 85.3 FL (80.0-100.0); MEAN CORPUSCULAR HEMOGLOBIN 28.4 PG (27.0-34.0); MEAN CORPUSCULAR HGB CONC 33.2 % (32.0-36.0); MONO % 4.6 % (0.0-8.0); NEUT % 72.2 % (16.0-70.0); PLATELET COUNT 546 TH/MM3 (150-450); RED BLOOD COUNT 3.75 MIL/MM3 (4.50-5.90); WHITE BLOOD COUNT 16.6 TH/MM3 (4.0-11.0)
[2017-04-29 05:35] LABS: HEMO FLAGS AUTO DIFF
[2017-04-29] MEDS: PHENYTOIN SUSP 100 MG/4 ML CUP PO SCH ×3 (05:40→21:46)
[2017-04-29] MEDS: PROPRANOLOL HCL 10 MG TAB PO SCH ×3 (05:40→21:46)
[2017-04-29] MEDS: MAGNESIUM HYDROXIDE SUSP 30 ML CUP PO SCH ×2 (05:41→18:30)
[2017-04-29] MEDS: POTASSIUM CHLOR 20 MEQ PREMIX 100 ML IV PRN ×2 (05:45→13:22)
[2017-04-29] MEDS: AMANTADINE HCL 100 MG CAP PO SCH (06:34)
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
[2017-04-29 07:43] LABS: BANDS 20 % (0-6); CORRECTED NUCLEATED RBC 1 /100 WBC (0-0); EOSINOPHILS 5 % (0-4); METAMYELOCYTES 1 % (0-1); MYELOCYTES 2 % (0-0); NEUTROPHIL # MANUAL DIFF 13.1 TH/MM3 (1.8-7.7); POLYS (SEG NEUTROPHILS) 56 % (16-70); WBC DIFF SAMPLE 100
[2017-04-29 07:45] LABS: PLATELET ESTIMATE SMEAR HIGH (NORMAL); PLATELET MORPHOLOGY NORMAL (NORMAL); SCAN/DIFF FINAL DIFF MANUAL
[2017-04-29] MEDS: FAMOTIDINE 20 MG TAB PO SCH ×2 (08:09→20:44)
[2017-04-29] MEDS: DOCUSATE SODIUM 50 MG/SENNA 8.6 MG TAB PO SCH ×2 (08:09→20:44)
[2017-04-29] MEDS: LACTULOSE SYRUP 20 GM/30 ML CUP PO SCH (08:10)
[2017-04-29] MEDS: COLLAGENASE OINT 30 GM TUBE TOPICAL SCH (08:10)
[2017-04-29] MEDS: ARTIFICIAL TEARS OPTH OINT 3.5 APPLIC/3.5 GM TUBO EACH EYE SCH ×2 (08:10→20:43)
[2017-04-29] MEDS: INSULIN DETEMIR 100 UNITS/ML VIAL SQ SCH ×2 (08:10→20:45)
[2017-04-29] MEDS: levETIRAcetam 500 MG/5 ML UDC NG SCH ×2 (08:10→20:44)
[2017-04-29] MEDS: CHLORHEXIDINE 0.12% (ORAL KIT) 15 ML CUP MT SCH ×2 (08:10→20:43)
--- NOTE | 2017-04-29 09:59 | RADRPT ---
EXAM DATE/TIME: 04/29/2017 09:05 [place] COMPARISON: CT BRAIN W/O CONTRAST, April 22, 2017, 9:59. INDICATIONS : Follow up intracranial hemorrhage. RADIATION DOSE: 61.04 CTDIvol (mGy) MEDICAL HISTORY : Hypertension. Diabetes mellitus type 2. Cochlear implant SURGICAL HISTORY : None. ENCOUNTER: Initial ACUITY: 1 day PAIN SCALE: Non-responsive LOCATION: cranial TECHNIQUE: Multiple contiguous axial images were obtained of the head. Using automated exposure control and adj ustment of the mA and/or kV according to patient size, radiation dose was kept as low as reasonably a chievable to obtain optimal diagnostic quality images. DICOM format image data is available electro nically for review and comparison. FINDINGS: There is trace acute appearing blood products lying within the occipital horns bilaterally. Otherwise , the left frontal high convexity, right frontal high convexity, and perimesencephalic cistern blood products have resolved. Ventricles are normal. There is a right frontal ventricular catheter with distal tip in the third parker tricle. Left-sided cochlear device remains present and causes beam hardening artifact. There is fluid within the left mastoid air cells. No midline shift or herniation is present. There is mucoperiostea l thickening is present within the sphenoid sinus. No mass or acute infarct is identified. CONCLUSION: 1. Trace blood products layer in the occipital horns but otherwise the other blood products have reso lved. 2. Otherwise, stable exam. Jonathan Jacobo MD on April 29, 2017 at 9:29 Board Certified Radiologist. This report was verified electronically.
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
[2017-04-29 12:20] LABS: BLOOD, URINE MOD (NEG); GLUCOSE,URINE 300 mg/dL (NEG); HYALINE CAST, URINE 1 /lpf (RARE); KETONE, URINE 80 mg/dL (NEG); MUCUS URINE FEW /lpf (OCC); NITRITE,URINE NEG (NEG); URINE COLOR YELLOW (YELLW/STRAW)
[2017-04-29 12:24] LABS: BACTERIA, URINE RARE /hpf; COMMENT (UR) CATH-CULTURE IND; CULTURE IF INDICATED CATH CULTURE IND
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
[2017-04-29] MEDS: LEVOFLOXACIN 750 MG TAB PO SCH (16:06)
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
[2017-04-30] VITALS (14 sets, daily range): BP systolic 123–144; BP diastolic 76–97; PULSE 90–125; RESP 18–22; TEMP 98.8–99.7; O2SAT 93–100
[2017-04-30] MEDS: ENOXAPARIN SODIUM 30 MG/0.3 ML SYRINGE SQ SCH ×2 (01:17→12:33)
[2017-04-30] MEDS: MORPHINE SULFATE 2 MG/ML INJ IV PUSH PRN (01:18)
[2017-04-30 03:31] LABS: AUTOMATED NEUTROPHIL # 12.9 TH/MM3 (1.8-7.7); BASOPHIL # 0.1 TH/MM3 (0-0.2); BASOPHIL % 0.3 % (0.0-2.0); EOSINOPHIL # 0.6 TH/MM3 (0-0.4); EOSINOPHIL % 2.9 % (0.0-4.0); HEMATOCRIT 34.1 % (39.0-51.0); LYMPH % 22.9 % (9.0-44.0); LYMPHOCYTE # 4.4 TH/MM3 (1.0-4.8); MEAN CELL VOLUME 85.2 FL (80.0-100.0); MEAN CORPUSCULAR HEMOGLOBIN 28.5 PG (27.0-34.0); MEAN CORPUSCULAR HGB CONC 33.5 % (32.0-36.0); MONO % 6.7 % (0.0-8.0); NEUT % 67.2 % (16.0-70.0); PLATELET COUNT 700 TH/MM3 (150-450); WHITE BLOOD COUNT 19.3 TH/MM3 (4.0-11.0)
[2017-04-30 03:45] LABS: ANION GAP 7 MEQ/L (5-15); AST (GOT) 30 U/L (15-37); BICARBONATE 28.1 MEQ/L (21.0-32.0); BLOOD UREA NITROGEN 14 MG/DL (7-18); CHLORIDE 102 MEQ/L (98-107); GLOMERULAR FILTRATION RATE 160 ML/MIN (>89); MAGNESIUM 2.3 MG/DL (1.5-2.5); POTASSIUM 3.6 MEQ/L (3.5-5.1); SODIUM (NA) 137 MEQ/L (136-145)
[2017-04-30 03:50] LABS: ALKALINE PHOSPHATASE 237 U/L (45-117); ALT (GPT) 45 U/L (12-78); HEMO FLAGS AUTO DIFF; TOTAL BILIRUBIN ADULT 0.6 MG/DL (0.2-1.0)
[2017-04-30] MEDS: CHLORHEXIDINE GLUCONATE 2 % 1 PACK (2 CLOTHS) TOP SCH (04:00)
[2017-04-30 04:22] LABS: BANDS 4 % (0-6); CORRECTED NUCLEATED RBC 1 /100 WBC (0-0); EOSINOPHILS 4 % (0-4); METAMYELOCYTES 2 % (0-1); MYELOCYTES 1 % (0-0); NEUTROPHIL # MANUAL DIFF 15.1 TH/MM3 (1.8-7.7); POLYS (SEG NEUTROPHILS) 71 % (16-70); SCAN/DIFF FINAL DIFF MANUAL; WBC DIFF SAMPLE 100
[2017-04-30 04:27] LABS: PLATELET ESTIMATE SMEAR HIGH (NORMAL); PLATELET MORPHOLOGY NORMAL (NORMAL)
[2017-04-30] MEDS: oxyCODONE HCL ORAL CONC 5 MG/0.25 ML SYRINGE PO SCH ×4 (05:07→21:05)
[2017-04-30] MEDS: MAGNESIUM HYDROXIDE SUSP 30 ML CUP PO SCH ×2 (05:08→17:26)
[2017-04-30] MEDS: PHENYTOIN SUSP 100 MG/4 ML CUP PO SCH ×3 (05:08→21:04)
[2017-04-30] MEDS: PROPRANOLOL HCL 10 MG TAB PO SCH ×3 (05:08→21:05)
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
[2017-04-30] MEDS: INSULIN ASPART SUPPLEMENTAL SCALE SQ SCH ×4 (06:48→23:15)
[2017-04-30] MEDS: AMANTADINE HCL 100 MG CAP PO SCH (06:48)
[2017-04-30] MEDS: FAMOTIDINE 20 MG TAB PO SCH ×2 (08:54→21:05)
[2017-04-30] MEDS: levETIRAcetam 500 MG/5 ML UDC NG SCH ×2 (08:54→21:05)
[2017-04-30] MEDS: CHLORHEXIDINE 0.12% (ORAL KIT) 15 ML CUP MT SCH ×2 (08:55→20:00)
[2017-04-30] MEDS: LEVOFLOXACIN 750 MG TAB PO SCH (08:55)
[2017-04-30] MEDS: INSULIN DETEMIR 100 UNITS/ML VIAL SQ SCH ×2 (08:55→21:05)
[2017-04-30] MEDS: ARTIFICIAL TEARS OPTH OINT 3.5 APPLIC/3.5 GM TUBO EACH EYE SCH ×2 (08:55→21:00)
[2017-04-30] MEDS: LACTULOSE SYRUP 20 GM/30 ML CUP PO SCH (08:55)
[2017-04-30] MEDS: COLLAGENASE OINT 30 GM TUBE TOPICAL SCH (08:56)
[2017-04-30] MEDS: DOCUSATE SODIUM 50 MG/SENNA 8.6 MG TAB PO SCH ×2 (08:56→21:00)
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
[2017-05-01] VITALS (13 sets, daily range): BP systolic 122–145; BP diastolic 78–91; PULSE 81–110; RESP 19–32; TEMP 98.9–100.1; O2SAT 96–100
[2017-05-01] MEDS: ENOXAPARIN SODIUM 30 MG/0.3 ML SYRINGE SQ SCH ×2 (00:25→13:00)
[2017-05-01] MEDS: oxyCODONE HCL ORAL CONC 5 MG/0.25 ML SYRINGE PO SCH (03:07)
[2017-05-01] MEDS: CHLORHEXIDINE GLUCONATE 2 % 1 PACK (2 CLOTHS) TOP SCH (03:07)
[2017-05-01] MEDS: PHENYTOIN SUSP 100 MG/4 ML CUP PO SCH ×3 (05:08→21:11)
[2017-05-01] MEDS: PROPRANOLOL HCL 10 MG TAB PO SCH ×3 (05:08→21:13)
[2017-05-01] MEDS: MAGNESIUM HYDROXIDE SUSP 30 ML CUP PO SCH (05:09)
[2017-05-01 05:20] LABS: AUTOMATED NEUTROPHIL # 10.4 TH/MM3 (1.8-7.7); BASOPHIL # 0.1 TH/MM3 (0-0.2); BASOPHIL % 0.8 % (0.0-2.0); EOSINOPHIL # 0.6 TH/MM3 (0-0.4); EOSINOPHIL % 3.5 % (0.0-4.0); HEMATOCRIT 36.9 % (39.0-51.0); LYMPHOCYTE # 4.1 TH/MM3 (1.0-4.8); MEAN CELL VOLUME 85.6 FL (80.0-100.0); MEAN CORPUSCULAR HEMOGLOBIN 29.3 PG (27.0-34.0); MEAN CORPUSCULAR HGB CONC 34.2 % (32.0-36.0); MONO % 6.9 % (0.0-8.0); NEUT % 63.8 % (16.0-70.0); PLATELET COUNT 861 TH/MM3 (150-450); RED BLOOD COUNT 4.31 MIL/MM3 (4.50-5.90); RED CELL DISTRIBUTION WIDTH 14.5 % (11.6-17.2); WHITE BLOOD COUNT 16.3 TH/MM3 (4.0-11.0)
[2017-05-01 05:24] LABS: HEMO FLAGS AUTO DIFF
[2017-05-01 05:53] LABS: ALKALINE PHOSPHATASE 265 U/L (45-117); ALT (GPT) 43 U/L (12-78); TOTAL BILIRUBIN ADULT 0.5 MG/DL (0.2-1.0)
[2017-05-01] MEDS: INSULIN ASPART SUPPLEMENTAL SCALE SQ SCH ×3 (05:54→17:17)
[2017-05-01 05:56] LABS: ANION GAP 8 MEQ/L (5-15); AST (GOT) 29 U/L (15-37); BICARBONATE 28.1 MEQ/L (21.0-32.0); BLOOD UREA NITROGEN 16 MG/DL (7-18); CHLORIDE 100 MEQ/L (98-107); GLOMERULAR FILTRATION RATE 133 ML/MIN (>89); MAGNESIUM 2.3 MG/DL (1.5-2.5); POTASSIUM 3.8 MEQ/L (3.5-5.1); SODIUM (NA) 136 MEQ/L (136-145)
[2017-05-01] MEDS: AMANTADINE HCL 100 MG CAP PO SCH (06:15)
[2017-05-01 07:11] LABS: PLATELET ESTIMATE SMEAR HIGH (NORMAL); PLATELET MORPHOLOGY NORMAL (NORMAL); SCAN/DIFF AUTO DIFF CONFIRMED
[2017-05-01] MEDS: LEVOFLOXACIN 750 MG TAB PO SCH (08:39)
[2017-05-01] MEDS: FAMOTIDINE 20 MG TAB PO SCH ×2 (08:39→20:51)
[2017-05-01] MEDS: levETIRAcetam 500 MG/5 ML UDC NG SCH ×2 (08:39→20:51)
[2017-05-01] MEDS: INSULIN DETEMIR 100 UNITS/ML VIAL SQ SCH ×2 (08:39→21:11)
[2017-05-01] MEDS: ARTIFICIAL TEARS OPTH OINT 3.5 APPLIC/3.5 GM TUBO EACH EYE SCH ×2 (08:40→20:51)
[2017-05-01] MEDS: CHLORHEXIDINE 0.12% (ORAL KIT) 15 ML CUP MT SCH ×2 (08:41→20:51)
[2017-05-01] MEDS: LACTULOSE SYRUP 20 GM/30 ML CUP PO SCH (08:41)
[2017-05-01] MEDS: DOCUSATE SODIUM 50 MG/SENNA 8.6 MG TAB PO SCH ×2 (08:42→20:51)
[2017-05-01] MEDS ORDERED: oxyCODONE HCL ORAL CONC 5 MG/0.25 ML SYRINGE PO PRN (10:00)
[2017-05-01] MEDS: COLLAGENASE OINT 30 GM TUBE TOPICAL SCH (10:30)
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
[2017-05-01] MEDS: SODIUM CHLOR 0.9% 1000 ML INJ 1,000 ML IV SCH (11:55)
[2017-05-01] MEDS ORDERED: PROPOFOL 200 MG/20 ML AMP IV ONE (12:00)
[2017-05-01 13:04] LABS: HEMATOCRIT 33.6 % (39.0-51.0); REVIEW FLAG FINAL
[2017-05-01 13:22] LABS: APTT (PATIENT) 26.4 SEC (24.3-30.1); INTERNATIONAL NORMALIZED RATIO 1.1 RATIO; PROTHROMBIN TIME - PATIENT 11.5 SEC (9.8-11.6)
[2017-05-01] MEDS: MORPHINE SULFATE 2 MG/ML INJ IV PUSH PRN (13:47)
[2017-05-01] MEDS: ACETAMINOPHEN 650 MG/20.3 ML UDC PO PRN (13:48)
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
--- NOTE | 2017-05-01 17:06 | PD.PROCEDR ---
GI Procedure PROCEDURE PERFORMED Upper endoscopy with bleeding control INDICATION FOR PROCEDURE Bleeding from the PEG tube site PROCEDURE: The procedure, risks and benefits were discussed with Mr. Jeffrey and informed consent was obtained. Anesthesia sedated him with Diprivan. He was placed in the left lateral decubitus position. EGD: The Pentax videoscope was introduced through the oropharynx and advanced to the second portion of the duodenum under direct visualization. Retroflexion was performed in the stomach. The PEG tube site was evaluated there was a small ulcer at the site possibly the reason for the bleeding no blood at this time but the area was cauterized with heat also the track of the PEG tube was cauterized FINDINGS: Small ulceration at the PEG tube site with some blood no active bleeding ESTIMATED BLOOD LOSS: 5 cc SPECIMENS REMOVED: None COMPLICATIONS: None IMPRESSION: PEG tube in place, small ulceration at the site of the PEG tube cauterized to prevent further bleeding PLAN: Resume tube feeding in 2 hours if no active bleeding Avoid anticoagulation for 24 hours if possible Mayte Spring MD May 01, 2017 17:06
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
[2017-05-02] VITALS (13 sets, daily range): BP systolic 132–138; BP diastolic 73–84; PULSE 85–127; RESP 13–23; TEMP 98.3–99.8; O2SAT 96–100
[2017-05-02] MEDS: SODIUM CHLOR 0.9% 1000 ML INJ 1,000 ML IV SCH ×3 (00:08→22:45)
[2017-05-02] MEDS: INSULIN ASPART SUPPLEMENTAL SCALE SQ SCH ×4 (00:24→18:00)
[2017-05-02] MEDS: ENOXAPARIN SODIUM 30 MG/0.3 ML SYRINGE SQ SCH ×2 (00:24→13:00)
[2017-05-02] MEDS: MORPHINE SULFATE 2 MG/ML INJ IV PUSH PRN (02:30)
[2017-05-02] MEDS: CHLORHEXIDINE GLUCONATE 2 % 1 PACK (2 CLOTHS) TOP SCH (03:12)
[2017-05-02] MEDS: MAGNESIUM HYDROXIDE SUSP 30 ML CUP PO SCH ×2 (05:44→18:30)
[2017-05-02] MEDS: PROPRANOLOL HCL 10 MG TAB PO SCH ×3 (05:45→21:44)
[2017-05-02] MEDS: PHENYTOIN SUSP 100 MG/4 ML CUP PO SCH ×3 (05:45→21:16)
[2017-05-02] MEDS: AMANTADINE HCL 100 MG CAP PO SCH (06:23)
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
[2017-05-02] MEDS: LACTULOSE SYRUP 20 GM/30 ML CUP PO SCH (09:00)
[2017-05-02] MEDS: DOCUSATE SODIUM 50 MG/SENNA 8.6 MG TAB PO SCH ×2 (09:00→21:00)
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
[2017-05-02] MEDS: CHLORHEXIDINE 0.12% (ORAL KIT) 15 ML CUP MT SCH ×2 (10:00→20:00)
[2017-05-02] MEDS: INSULIN DETEMIR 100 UNITS/ML VIAL SQ SCH ×2 (10:30→21:16)
[2017-05-02] MEDS: ARTIFICIAL TEARS OPTH OINT 3.5 APPLIC/3.5 GM TUBO EACH EYE SCH ×2 (10:30→21:15)
[2017-05-02] MEDS: LEVOFLOXACIN 750 MG TAB PO SCH (10:30)
[2017-05-02] MEDS: COLLAGENASE OINT 30 GM TUBE TOPICAL SCH (10:30)
[2017-05-02] MEDS: FAMOTIDINE 20 MG TAB PO SCH ×2 (10:30→21:15)
[2017-05-02] MEDS: levETIRAcetam 500 MG/5 ML UDC NG SCH ×2 (10:30→21:15)
[2017-05-02 12:23] LABS: HEMATOCRIT 30.7 % (39.0-51.0); REVIEW FLAG FINAL
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
[2017-05-03] VITALS (8 sets, daily range): BP systolic 129–136; BP diastolic 74–81; PULSE 100–120; RESP 18–24; TEMP 97–99.2; O2SAT 94–98
[2017-05-03] MEDS: INSULIN ASPART SUPPLEMENTAL SCALE SQ SCH ×4 (01:05→18:04)
[2017-05-03] MEDS: ENOXAPARIN SODIUM 30 MG/0.3 ML SYRINGE SQ SCH ×2 (01:07→12:44)
[2017-05-03] MEDS: CHLORHEXIDINE GLUCONATE 2 % 1 PACK (2 CLOTHS) TOP SCH (04:00)
[2017-05-03] MEDS: PHENYTOIN SUSP 100 MG/4 ML CUP PO SCH ×3 (05:58→22:57)
[2017-05-03] MEDS: MAGNESIUM HYDROXIDE SUSP 30 ML CUP PO SCH ×2 (05:59→12:44)
[2017-05-03] MEDS: PROPRANOLOL HCL 10 MG TAB PO SCH ×3 (05:59→22:56)
[2017-05-03 06:00] LABS: AUTOMATED NEUTROPHIL # 11.1 TH/MM3 (1.8-7.7); BASOPHIL # 0.2 TH/MM3 (0-0.2); BASOPHIL % 0.9 % (0.0-2.0); EOSINOPHIL # 0.4 TH/MM3 (0-0.4); EOSINOPHIL % 2.4 % (0.0-4.0); LYMPH % 23.2 % (9.0-44.0); LYMPHOCYTE # 3.9 TH/MM3 (1.0-4.8); MEAN CELL VOLUME 87.2 FL (80.0-100.0); MEAN CORPUSCULAR HEMOGLOBIN 29.9 PG (27.0-34.0); MEAN CORPUSCULAR HGB CONC 34.3 % (32.0-36.0); MONO % 7.5 % (0.0-8.0); PLATELET COUNT 742 TH/MM3 (150-450); RED BLOOD COUNT 3.33 MIL/MM3 (4.50-5.90); RED CELL DISTRIBUTION WIDTH 15.2 % (11.6-17.2); WHITE BLOOD COUNT 16.9 TH/MM3 (4.0-11.0)
[2017-05-03] MEDS: SODIUM CHLOR 0.9% 1000 ML INJ 1,000 ML IV SCH ×2 (06:09→19:37)
[2017-05-03 06:12] LABS: HEMO FLAGS AUTO DIFF
[2017-05-03 06:31] LABS: BICARBONATE 24.5 MEQ/L (21.0-32.0); POTASSIUM 3.9 MEQ/L (3.5-5.1)
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
[2017-05-03] MEDS: MORPHINE SULFATE 2 MG/ML INJ IV PUSH PRN (07:46)
[2017-05-03 08:03] LABS: BANDS 6 % (0-6); BASOPHILS 1 % (0-2); CORRECTED NUCLEATED RBC 2 /100 WBC (0-0); EOSINOPHILS 3 % (0-4); METAMYELOCYTES 3 % (0-1); MYELOCYTES 1 % (0-0); NEUTROPHIL # MANUAL DIFF 13.4 TH/MM3 (1.8-7.7); PLATELET ESTIMATE SMEAR HIGH (NORMAL); PLATELET MORPHOLOGY NORMAL (NORMAL); POLYS (SEG NEUTROPHILS) 69 % (16-70); WBC DIFF SAMPLE 100
[2017-05-03 08:04] LABS: POLYCHROMASIA 2.8 % (0.0-1.9); SCAN/DIFF FINAL DIFF MANUAL
[2017-05-03] MEDS: ARTIFICIAL TEARS OPTH OINT 3.5 APPLIC/3.5 GM TUBO EACH EYE SCH ×2 (09:00→23:00)
[2017-05-03] MEDS: DOCUSATE SODIUM 50 MG/SENNA 8.6 MG TAB PO SCH ×2 (09:00→21:00)
[2017-05-03] MEDS: COLLAGENASE OINT 30 GM TUBE TOPICAL SCH (09:00)
[2017-05-03] MEDS: INSULIN DETEMIR 100 UNITS/ML VIAL SQ SCH ×2 (09:08→22:58)
[2017-05-03] MEDS: LACTULOSE SYRUP 20 GM/30 ML CUP PO SCH (09:08)
[2017-05-03] MEDS: LEVOFLOXACIN 750 MG TAB PO SCH (09:08)
[2017-05-03] MEDS: FAMOTIDINE 20 MG TAB PO SCH ×2 (09:08→22:57)
[2017-05-03] MEDS: levETIRAcetam 500 MG/5 ML UDC NG SCH ×2 (09:09→22:56)
[2017-05-03] MEDS: AMANTADINE HCL 100 MG CAP PO SCH (09:09)
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
[2017-05-03] MEDS: BACITRACIN TOP OINT 15 GM TUBE TOPICAL SCH ×2 (13:55→22:58)
[2017-05-03] MEDS ORDERED: BACITRACIN TOP OINT 15 GM TUBE TOPICAL SCH (14:30)
[2017-05-03] MEDS: METOCLOPRAMIDE HCL 10 MG/2 ML VIAL IV PUSH SCH ×2 (16:06→22:58)
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
[2017-05-03] MEDS: CHLORHEXIDINE GLUCONATE 0.12% 15 ML CUP SWISH-SPIT SCH (22:56)
[2017-05-04] VITALS (7 sets, daily range): BP systolic 115–128; BP diastolic 70–83; PULSE 98–119; RESP 17–20; TEMP 97.4–98.8; O2SAT 96–98
[2017-05-04] MEDS: INSULIN ASPART SUPPLEMENTAL SCALE SQ SCH ×4 (00:40→17:46)
[2017-05-04] MEDS: ENOXAPARIN SODIUM 30 MG/0.3 ML SYRINGE SQ SCH ×3 (00:42→23:15)
[2017-05-04 05:15] LABS: AUTOMATED NEUTROPHIL # 13.4 TH/MM3 (1.8-7.7); BASOPHIL # 0.1 TH/MM3 (0-0.2); BASOPHIL % 0.6 % (0.0-2.0); EOSINOPHIL # 0.5 TH/MM3 (0-0.4); EOSINOPHIL % 2.4 % (0.0-4.0); HEMATOCRIT 29.7 % (39.0-51.0); HEMO FLAGS DIFF FINAL; LYMPH % 19.4 % (9.0-44.0); LYMPHOCYTE # 3.7 TH/MM3 (1.0-4.8); MEAN CELL VOLUME 86.6 FL (80.0-100.0); MEAN CORPUSCULAR HEMOGLOBIN 28.8 PG (27.0-34.0); MEAN CORPUSCULAR HGB CONC 33.3 % (32.0-36.0); MONO % 7.7 % (0.0-8.0); NEUT % 69.9 % (16.0-70.0); PLATELET COUNT 777 TH/MM3 (150-450); RED BLOOD COUNT 3.43 MIL/MM3 (4.50-5.90); RED CELL DISTRIBUTION WIDTH 15.3 % (11.6-17.2); WHITE BLOOD COUNT 19.2 TH/MM3 (4.0-11.0)
--- NOTE | 2017-05-04 05:35 | RADRPT ---
EXAM DATE/TIME: 05/04/2017 05:17 [facility] COMPARISON: CHEST SINGLE AP, May 03, 2017, 8:49. INDICATIONS : Shortness of breath. MEDICAL HISTORY : Hypertension. Diabetes mellitus type 2. Cochlear implant SURGICAL HISTORY : None. ENCOUNTER: Subsequent ACUITY: 2 weeks PAIN SCORE: Non-responsive. LOCATION: Bilateral chest FINDINGS: Persistent bilateral perihilar infiltrates, similar in size and appearance to yesterday's exam. No f ree air seen underneath the right hemidiaphragm on this semierect view. The heart is normal size. T racheostomy in place. CONCLUSION: Persistent bilateral perihilar consolidative infiltrates. Elvis Frey MD on May 04, 2017 at 5:33 Board Certified Radiologist. This report was verified electronically.
[2017-05-04 05:46] LABS: ALT (GPT) 27 U/L (12-78); ANION GAP 8 MEQ/L (5-15); AST (GOT) 18 U/L (15-37); BICARBONATE 25.3 MEQ/L (21.0-32.0); BLOOD UREA NITROGEN 8 MG/DL (7-18); CHLORIDE 106 MEQ/L (98-107); GLOMERULAR FILTRATION RATE 186 ML/MIN (>89); MAGNESIUM 2.1 MG/DL (1.5-2.5); POTASSIUM 3.5 MEQ/L (3.5-5.1); SODIUM (NA) 139 MEQ/L (136-145)
[2017-05-04 05:49] LABS: ALKALINE PHOSPHATASE 243 U/L (45-117); TOTAL BILIRUBIN ADULT 0.5 MG/DL (0.2-1.0)
[2017-05-04] MEDS: METOCLOPRAMIDE HCL 10 MG/2 ML VIAL IV PUSH SCH ×3 (06:00→20:27)
[2017-05-04] MEDS: PHENYTOIN SUSP 100 MG/4 ML CUP PO SCH (06:22)
[2017-05-04] MEDS: PROPRANOLOL HCL 10 MG TAB PO SCH (06:22)
[2017-05-04] MEDS: AMANTADINE HCL 100 MG CAP PO SCH (06:22)
[2017-05-04] MEDS: MAGNESIUM HYDROXIDE SUSP 30 ML CUP PO SCH (06:23)
[2017-05-04] MEDS: INSULIN DETEMIR 100 UNITS/ML VIAL SQ SCH ×2 (09:00→21:16)
[2017-05-04] MEDS: CHLORHEXIDINE GLUCONATE 0.12% 15 ML CUP SWISH-SPIT SCH ×2 (09:00→20:27)
[2017-05-04] MEDS: LACTULOSE SYRUP 20 GM/30 ML CUP PO SCH (09:00)
[2017-05-04] MEDS: LEVOFLOXACIN 750 MG TAB PO SCH (09:00)
[2017-05-04] MEDS: DOCUSATE SODIUM 50 MG/SENNA 8.6 MG TAB PO SCH (09:00)
[2017-05-04] MEDS: FAMOTIDINE 20 MG TAB PO SCH (09:00)
[2017-05-04] MEDS: ARTIFICIAL TEARS OPTH OINT 3.5 APPLIC/3.5 GM TUBO EACH EYE SCH ×2 (09:59→21:15)
[2017-05-04] MEDS: COLLAGENASE OINT 30 GM TUBE TOPICAL SCH (10:00)
[2017-05-04] MEDS: BACITRACIN TOP OINT 15 GM TUBE TOPICAL SCH ×2 (10:01→20:28)
[2017-05-04] MEDS: levETIRAcetam 500 MG/5 ML UDC NG SCH ×2 (11:31→20:26)
[2017-05-04] MEDS ORDERED: ACETAMINOPHEN 650 MG/20.3 ML UDC NG PRN (12:15)
[2017-05-04] MEDS ORDERED: LEVOFLOXACIN 750 MG TAB NG SCH (12:15)
[2017-05-04] MEDS ORDERED: oxyCODONE HCL ORAL CONC 5 MG/0.25 ML SYRINGE NG PRN (12:15)
[2017-05-04] MEDS ORDERED: SENNOSIDES 8.6 MG TAB NG PRN (12:15)
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
[2017-05-04] MEDS ORDERED: LEVOFLOXACIN ORAL SOLN 2500 MG/100 ML BOTTLE NG SCH (13:00)
[2017-05-04] MEDS ORDERED: SENNOSIDES SYRUP 8.8 MG/5 ML CUP NG PRN (13:00)
[2017-05-04] MEDS: PHENYTOIN SUSP 100 MG/4 ML CUP NG SCH ×2 (13:12→20:26)
[2017-05-04] MEDS: PROPRANOLOL HCL 10 MG TAB NG SCH ×2 (13:12→20:27)
[2017-05-04] MEDS: LEVOFLOXACIN ORAL SOLN 2500 MG/100 ML BOTTLE NG SCH (15:53)
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
[2017-05-04] MEDS: MAGNESIUM HYDROXIDE SUSP 30 ML CUP NG SCH (17:46)
[2017-05-04] MEDS: metFORMIN HCL 500 MG TAB PEG SCH (17:46)
[2017-05-04] MEDS ORDERED: metFORMIN HCL 500 MG TAB PO SCH (18:00)
[2017-05-04] MEDS: DOCUSATE SODIUM 50 MG/SENNA 8.6 MG TAB NG SCH (20:23)
[2017-05-04] MEDS: FAMOTIDINE 20 MG TAB NG SCH (20:26)
[2017-05-05] VITALS (8 sets, daily range): BP systolic 121–148; BP diastolic 75–92; PULSE 92–114; RESP 18–22; TEMP 96.2–98.8; O2SAT 95–98
[2017-05-05] MEDS: INSULIN ASPART SUPPLEMENTAL SCALE SQ SCH ×4 (01:12→18:13)
[2017-05-05] MEDS: PROPRANOLOL HCL 10 MG TAB NG SCH ×3 (06:08→19:52)
[2017-05-05] MEDS: PHENYTOIN SUSP 100 MG/4 ML CUP NG SCH ×3 (06:08→21:13)
[2017-05-05] MEDS: METOCLOPRAMIDE HCL 10 MG/2 ML VIAL IV PUSH SCH ×2 (06:10→12:32)
[2017-05-05] MEDS: MAGNESIUM HYDROXIDE SUSP 30 ML CUP NG SCH ×2 (06:10→18:13)
[2017-05-05] MEDS: AMANTADINE HCL 100 MG CAP NG SCH (06:34)
[2017-05-05 06:51] LABS: AUTOMATED NEUTROPHIL # 8.7 TH/MM3 (1.8-7.7); BASOPHIL # 0.1 TH/MM3 (0-0.2); BASOPHIL % 0.6 % (0.0-2.0); EOSINOPHIL # 0.5 TH/MM3 (0-0.4); EOSINOPHIL % 3.3 % (0.0-4.0); HEMO FLAGS DIFF FINAL; LYMPH % 22.5 % (9.0-44.0); LYMPHOCYTE # 3.1 TH/MM3 (1.0-4.8); MEAN CELL VOLUME 86.9 FL (80.0-100.0); MEAN CORPUSCULAR HEMOGLOBIN 28.9 PG (27.0-34.0); MEAN CORPUSCULAR HGB CONC 33.3 % (32.0-36.0); MONO % 9.7 % (0.0-8.0); NEUT % 63.9 % (16.0-70.0); PLATELET COUNT 718 TH/MM3 (150-450); RED BLOOD COUNT 3.91 MIL/MM3 (4.50-5.90); RED CELL DISTRIBUTION WIDTH 15.7 % (11.6-17.2); WHITE BLOOD COUNT 13.6 TH/MM3 (4.0-11.0)
[2017-05-05 07:23] LABS: BICARBONATE 25.5 MEQ/L (21.0-32.0); POTASSIUM 3.6 MEQ/L (3.5-5.1)
[2017-05-05] MEDS: metFORMIN HCL 500 MG TAB PEG SCH ×2 (08:40→18:12)
[2017-05-05] MEDS: CHLORHEXIDINE GLUCONATE 0.12% 15 ML CUP SWISH-SPIT SCH ×2 (08:40→21:13)
[2017-05-05] MEDS: levETIRAcetam 500 MG/5 ML UDC NG SCH ×2 (08:40→19:52)
[2017-05-05] MEDS: FAMOTIDINE 20 MG TAB NG SCH ×2 (08:40→19:52)
[2017-05-05] MEDS: INSULIN DETEMIR 100 UNITS/ML VIAL SQ SCH ×2 (08:41→21:12)
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
[2017-05-05] MEDS: BACITRACIN TOP OINT 15 GM TUBE TOPICAL SCH ×2 (08:53→19:53)
[2017-05-05] MEDS: LACTULOSE SYRUP 20 GM/30 ML CUP NG SCH (08:53)
[2017-05-05] MEDS: COLLAGENASE OINT 30 GM TUBE TOPICAL SCH (08:53)
[2017-05-05] MEDS: DOCUSATE SODIUM 50 MG/SENNA 8.6 MG TAB NG SCH ×2 (08:53→19:52)
[2017-05-05] MEDS: LEVOFLOXACIN ORAL SOLN 2500 MG/100 ML BOTTLE NG SCH (09:08)
[2017-05-05] MEDS: ARTIFICIAL TEARS OPTH OINT 3.5 APPLIC/3.5 GM TUBO EACH EYE SCH ×2 (09:09→19:52)
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
[2017-05-05] MEDS: ENOXAPARIN SODIUM 30 MG/0.3 ML SYRINGE SQ SCH (12:24)
[2017-05-06] VITALS (7 sets, daily range): BP systolic 118–137; BP diastolic 74–89; PULSE 97–112; RESP 16–20; TEMP 95.8–99.6; O2SAT 95–99
[2017-05-06] MEDS: ENOXAPARIN SODIUM 30 MG/0.3 ML SYRINGE SQ SCH ×2 (00:43→13:09)
[2017-05-06] MEDS: MAGNESIUM HYDROXIDE SUSP 30 ML CUP NG SCH ×2 (04:37→18:05)
[2017-05-06] MEDS: PROPRANOLOL HCL 10 MG TAB NG SCH ×3 (04:39→22:59)
[2017-05-06] MEDS: INSULIN ASPART SUPPLEMENTAL SCALE SQ SCH ×5 (05:42→23:12)
[2017-05-06] MEDS: AMANTADINE HCL 100 MG CAP NG SCH (05:59)
[2017-05-06] MEDS: PHENYTOIN SUSP 100 MG/4 ML CUP NG SCH ×3 (05:59→20:49)
[2017-05-06] MEDS: LACTULOSE SYRUP 20 GM/30 ML CUP NG SCH (08:32)
[2017-05-06] MEDS: LEVOFLOXACIN ORAL SOLN 2500 MG/100 ML BOTTLE NG SCH (08:32)
[2017-05-06] MEDS: metFORMIN HCL 500 MG TAB PEG SCH ×2 (08:33→18:05)
[2017-05-06] MEDS: levETIRAcetam 500 MG/5 ML UDC NG SCH ×2 (08:33→20:45)
[2017-05-06] MEDS: FAMOTIDINE 20 MG TAB NG SCH ×2 (08:33→20:45)
[2017-05-06] MEDS: CHLORHEXIDINE GLUCONATE 0.12% 15 ML CUP SWISH-SPIT SCH ×2 (08:33→20:45)
[2017-05-06] MEDS: DOCUSATE SODIUM 50 MG/SENNA 8.6 MG TAB NG SCH ×2 (08:33→20:45)
[2017-05-06] MEDS: INSULIN DETEMIR 100 UNITS/ML VIAL SQ SCH ×2 (08:34→22:43)
[2017-05-06] MEDS: COLLAGENASE OINT 30 GM TUBE TOPICAL SCH (08:35)
[2017-05-06] MEDS: BACITRACIN TOP OINT 15 GM TUBE TOPICAL SCH ×2 (08:36→20:44)
[2017-05-06] MEDS: ARTIFICIAL TEARS OPTH OINT 3.5 APPLIC/3.5 GM TUBO EACH EYE SCH ×2 (08:39→20:45)
--- NOTE | 2017-05-06 10:36 | RADRPT ---
EXAM DATE/TIME: 05/06/2017 09:59 [place] COMPARISON: CT BRAIN W/O CONTRAST, April 29, 2017, 9:05. INDICATIONS : Follow up, trauma. RADIATION DOSE: 34.33 CTDIvol (mGy) MEDICAL HISTORY : Hypertension. Diabetes mellitus type 2. SURGICAL HISTORY : Cochlear implant ENCOUNTER: Subsequent ACUITY: 1 week PAIN SCALE: 0/10 LOCATION: cranial TECHNIQUE: Multiple contiguous axial images were obtained of the head. Using automated exposure control and adj ustment of the mA and/or kV according to patient size, radiation dose was kept as low as reasonably a chievable to obtain optimal diagnostic quality images. DICOM format image data is available electro nically for review and comparison. FINDINGS: CEREBRUM: The ventricles are normal for age. No evidence of midline shift, mass lesion, hemorrhage or acute in farction. No extra-axial fluid collections are seen. The previously noted right ventricular catheter has been removed. The small amount of residual ventricular hemorrhage has resolved. POSTERIOR FOSSA: The cerebellum and brainstem are intact. The 4th ventricle is midline. The cerebellopontine angle i s unremarkable. EXTRACRANIAL: The visualized portion of the orbits is intact. SKULL: Stable CONCLUSION: 1. The previous right ventricular catheter has been removed. 2. The previously noted tiny amount of intraventricular hemorrhage has resolved 3. Otherwise, the rest of the CT brain is unremarkable and stable compared to the prior study. Calin Garcia MD on May 06, 2017 at 10:31 Board Certified Radiologist. This report was verified electronically.
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
--- NOTE | 2017-05-06 15:26 | RADRPT ---
EXAM DATE/TIME: 05/06/2017 13:47 [place] COMPARISON: No previous studies available for comparison. INDICATIONS : G-tube placement with gastrografin. MEDICAL HISTORY : Hypertension. Diabetes mellitus type II. SURGICAL HISTORY : cochlear implant ENCOUNTER: Initial ACUITY: 2 weeks PAIN SCORE: Non-responsive. LOCATION: Bilateral abdomen FINDINGS: Supine view of the abdomen was performed. Contrast was injected through the G-tube. Contrast is seen in the stomach. No extravasation.. CONCLUSION: G-tube is in the stomach. Calin Garcia MD on May 06, 2017 at 15:23 Board Certified Radiologist. This report was verified electronically.
[2017-05-07] VITALS (8 sets, daily range): BP systolic 114–129; BP diastolic 72–88; PULSE 82–107; RESP 18–22; TEMP 96.4–98.8; O2SAT 95–100
[2017-05-07] MEDS: ENOXAPARIN SODIUM 30 MG/0.3 ML SYRINGE SQ SCH ×3 (01:00→12:44)
[2017-05-07] MEDS: PROPRANOLOL HCL 10 MG TAB NG SCH ×3 (05:09→22:38)
[2017-05-07] MEDS: PHENYTOIN SUSP 100 MG/4 ML CUP NG SCH ×3 (05:10→22:38)
[2017-05-07] MEDS: MAGNESIUM HYDROXIDE SUSP 30 ML CUP NG SCH ×2 (05:12→17:22)
[2017-05-07] MEDS: INSULIN ASPART SUPPLEMENTAL SCALE SQ SCH ×3 (05:23→17:21)
[2017-05-07] MEDS: AMANTADINE HCL 100 MG CAP NG SCH (07:33)
[2017-05-07] MEDS: DOCUSATE SODIUM 50 MG/SENNA 8.6 MG TAB NG SCH ×2 (09:00→21:00)
[2017-05-07] MEDS: metFORMIN HCL 500 MG TAB PEG SCH ×2 (09:00→17:22)
[2017-05-07] MEDS: LACTULOSE SYRUP 20 GM/30 ML CUP NG SCH (09:00)
[2017-05-07] MEDS: ARTIFICIAL TEARS OPTH OINT 3.5 APPLIC/3.5 GM TUBO EACH EYE SCH ×2 (09:20→23:02)
[2017-05-07] MEDS: CHLORHEXIDINE GLUCONATE 0.12% 15 ML CUP SWISH-SPIT SCH ×2 (09:22→22:38)
[2017-05-07] MEDS: levETIRAcetam 500 MG/5 ML UDC NG SCH ×2 (09:23→22:39)
[2017-05-07] MEDS: INSULIN DETEMIR 100 UNITS/ML VIAL SQ SCH ×2 (09:25→21:00)
[2017-05-07] MEDS: FAMOTIDINE 20 MG TAB NG SCH ×2 (09:25→22:38)
[2017-05-07] MEDS: LEVOFLOXACIN ORAL SOLN 2500 MG/100 ML BOTTLE NG SCH (09:26)
[2017-05-07] MEDS: COLLAGENASE OINT 30 GM TUBE TOPICAL SCH (09:27)
[2017-05-07] MEDS: BACITRACIN TOP OINT 15 GM TUBE TOPICAL SCH ×2 (09:28→22:39)
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
[2017-05-07] MEDS ORDERED: Amantadine NG (12:10)
[2017-05-07] MEDS ORDERED: COLL30T TOPICAL (12:10)
[2017-05-07] MEDS ORDERED: METF500 PEG (12:10)
[2017-05-07] MEDS ORDERED: NOVOLOGSS SQ (12:10)
[2017-05-07] MEDS ORDERED: LEVO25SO NG (12:10)
[2017-05-07] MEDS ORDERED: ENOX30P SQ (12:10)
[2017-05-07] MEDS ORDERED: LEVEMIR SQ (12:10)
[2017-05-07] MEDS ORDERED: PHEN100O NG (12:10)
[2017-05-07] MEDS ORDERED: Chlorhexidine 0.12% Liq SWISH-SPIT (12:10)
[2017-05-07] MEDS ORDERED: PROP10TA6 NG (12:10)
[2017-05-07] MEDS ORDERED: LEVE500S NG (12:10)
[2017-05-07] MEDS ORDERED: oxyCODONE LIQ NG (12:10)
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
[2017-05-07] MEDS: LACTATED RINGER'S 1000 ML INJ 1,000 ML IV SCH (16:16)
[2017-05-08] VITALS (7 sets, daily range): BP systolic 123–136; BP diastolic 73–87; PULSE 86–101; RESP 18–21; TEMP 96.9–99.6; O2SAT 93–100
[2017-05-08] MEDS: ENOXAPARIN SODIUM 30 MG/0.3 ML SYRINGE SQ SCH ×2 (00:27→12:01)
[2017-05-08 00:52] LABS: AUTOMATED NEUTROPHIL # 6.9 TH/MM3 (1.8-7.7); BASOPHIL # 0.1 TH/MM3 (0-0.2); BASOPHIL % 1.1 % (0.0-2.0); EOSINOPHIL # 0.3 TH/MM3 (0-0.4); EOSINOPHIL % 2.9 % (0.0-4.0); HEMATOCRIT 31.9 % (39.0-51.0); HEMO FLAGS DIFF FINAL; LYMPH % 24.8 % (9.0-44.0); LYMPHOCYTE # 2.9 TH/MM3 (1.0-4.8); MEAN CELL VOLUME 88.3 FL (80.0-100.0); MEAN CORPUSCULAR HEMOGLOBIN 29.8 PG (27.0-34.0); MEAN CORPUSCULAR HGB CONC 33.8 % (32.0-36.0); MONO % 12.2 % (0.0-8.0); PLATELET COUNT 584 TH/MM3 (150-450); RED BLOOD COUNT 3.61 MIL/MM3 (4.50-5.90); RED CELL DISTRIBUTION WIDTH 16.3 % (11.6-17.2); WHITE BLOOD COUNT 11.6 TH/MM3 (4.0-11.0)
[2017-05-08] MEDS ORDERED: LACTATED RINGER'S 1000 ML IV PRN (05:45)
[2017-05-08] MEDS: INSULIN ASPART SUPPLEMENTAL SCALE SQ SCH ×5 (06:00→23:58)
[2017-05-08] MEDS: PROPRANOLOL HCL 10 MG TAB NG SCH ×2 (06:15→13:53)
[2017-05-08] MEDS: PHENYTOIN SUSP 100 MG/4 ML CUP NG SCH ×3 (06:15→23:54)
[2017-05-08] MEDS: LACTATED RINGER'S 1000 ML INJ 1,000 ML IV SCH ×2 (06:15→18:38)
[2017-05-08] MEDS: MAGNESIUM HYDROXIDE SUSP 30 ML CUP NG SCH ×2 (06:16→18:30)
[2017-05-08] MEDS: AMANTADINE HCL 100 MG CAP NG SCH (06:16)
[2017-05-08 06:30] LABS: POTASSIUM 3.5 MEQ/L (3.5-5.1)
--- NOTE | 2017-05-08 07:48 | RADRPT ---
EXAM DATE/TIME: 05/08/2017 07:09 [facility] COMPARISON: WRIST RIGHT LIMITED(AP & LAT), April 18, 2017, 5:21. INDICATIONS : Pain. MEDICAL HISTORY : Prior fracture. SURGICAL HISTORY : Pinning, first digit. ENCOUNTER: Initial ACUITY: 1 day PAIN SCORE: Non-responsive. LOCATION: Right entire hand. FINDINGS: Two pins are noted within the right first metacarpal status post ORIF. There is a tiny nondisplaced f racture involving the base of the right first proximal phalanx. CONCLUSION: 1. Status post ORIF of comminuted fracture involving the right first metacarpal. 2. Subtle nondisplaced fracture involving the base of the right first proximal phalanx. Logan Levin MD on May 08, 2017 at 7:43 Board Certified Radiologist. This report was verified electronically.
[2017-05-08] MEDS: INSULIN DETEMIR 100 UNITS/ML VIAL SQ SCH ×2 (09:00→21:00)
[2017-05-08] MEDS: LACTULOSE SYRUP 20 GM/30 ML CUP NG SCH (09:00)
[2017-05-08] MEDS: DOCUSATE SODIUM 50 MG/SENNA 8.6 MG TAB NG SCH ×2 (09:00→21:00)
[2017-05-08] MEDS: metFORMIN HCL 500 MG TAB PEG SCH ×2 (09:00→18:33)
[2017-05-08] MEDS: ARTIFICIAL TEARS OPTH OINT 3.5 APPLIC/3.5 GM TUBO EACH EYE SCH ×2 (09:10→23:54)
[2017-05-08] MEDS: COLLAGENASE OINT 30 GM TUBE TOPICAL SCH (09:12)
[2017-05-08] MEDS: BACITRACIN TOP OINT 15 GM TUBE TOPICAL SCH ×2 (09:13→23:55)
[2017-05-08] MEDS: levETIRAcetam 500 MG/5 ML UDC NG SCH ×2 (09:16→23:54)
[2017-05-08] MEDS: CHLORHEXIDINE GLUCONATE 0.12% 15 ML CUP SWISH-SPIT SCH (09:16)
[2017-05-08] MEDS: FAMOTIDINE 20 MG TAB NG SCH ×2 (09:17→23:53)
[2017-05-08] MEDS: LEVOFLOXACIN ORAL SOLN 2500 MG/100 ML BOTTLE NG SCH (09:17)
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
[2017-05-09] VITALS (7 sets, daily range): BP systolic 121–154; BP diastolic 74–86; PULSE 79–111; RESP 16–20; TEMP 96.2–97.6; O2SAT 96–98
[2017-05-09] MEDS: PROPRANOLOL HCL 10 MG TAB NG SCH ×2 (00:02→05:41)
[2017-05-09] MEDS: CHLORHEXIDINE GLUCONATE 0.12% 15 ML CUP SWISH-SPIT SCH ×3 (00:02→21:29)
[2017-05-09] MEDS: LACTATED RINGER'S 1000 ML INJ 1,000 ML IV SCH ×2 (00:03→15:46)
[2017-05-09] MEDS: ENOXAPARIN SODIUM 30 MG/0.3 ML SYRINGE SQ SCH ×3 (00:11→23:58)
[2017-05-09] MEDS: AMANTADINE HCL 100 MG CAP NG SCH (05:41)
[2017-05-09] MEDS: PHENYTOIN SUSP 100 MG/4 ML CUP NG SCH ×3 (05:41→21:29)
[2017-05-09] MEDS: MAGNESIUM HYDROXIDE SUSP 30 ML CUP NG SCH ×2 (05:41→17:31)
[2017-05-09] MEDS: INSULIN ASPART SUPPLEMENTAL SCALE SQ SCH ×4 (05:54→23:27)
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
[2017-05-09] MEDS: INSULIN DETEMIR 100 UNITS/ML VIAL SQ SCH ×2 (09:00→21:37)
[2017-05-09] MEDS: DOCUSATE SODIUM 50 MG/SENNA 8.6 MG TAB NG SCH ×3 (09:00→21:28)
[2017-05-09] MEDS ORDERED: DO NOT ADM ANY ANTICOAGULANT DRUGS PRN (09:00)
[2017-05-09] MEDS: LACTULOSE SYRUP 20 GM/30 ML CUP NG SCH (09:00)
--- NOTE | 2017-05-09 09:04 | GIPROC ---
[facility] [address] [facility]. [facility], [address] EGD PROCEDURE REPORT EXAM DATE: 05/09/2017 PATIENT NAME: Erik Jeffrey MR #: [id number] BIRTHDATE: 1980 ATTENDING: Aurea Pastrana MD ORDER #: [id number] ELECTROMECHANISMS DESIGN DRAFTER: Cheri Garcia and Hina Prieto STATUS: inpatient INDICATIONS: The patient is a 36 yr old male here for an EGD due to bleeding around PEG site PROCEDURE PERFORMED: EGD, diagnostic MEDICATIONS: None and Per Anesthesia. TOPICAL ANESTHETIC: none CONSENT: The patient understands the risks and benefits of the procedure and understands that these risks include, but are not limited to: sedation, allergic reaction, infection, perforation and/or bleeding. Alternative means of evaluation and treatment include, among others: physical exam, x-rays, and/or surgical intervention. The patient elects to proceed with this endoscopic procedure. medical equipment was checked for proper function. Hand hygiene and appropriate measures for infection prevention was taken. After the risks, benefits and alternatives of the procedure were thoroughly explained, Informed consent was verified, confirmed and timeout was successfully executed by the treatment team. The patient was anesthetized with topical anesthesia and the Pentax [id number] endoscope was introduced through the mouth and advanced to the second portion of the duodenum. Retroflexed views revealed Residual food covering the area The gastroscope was then slowly withdrawn and removed. ESOPHAGUS: The esophagus was otherwise normal. STOMACH: There was a large amount of residual food. Due to the residual food, complete mucosal examination could not be performed. DUODENUM: Abnormal mucosa was found. The duodenal mucosa appeared normal in the bulb and second portion of the duodenum. ADVERSE EVENTS: There were no complications. IMPRESSIONS: 1. The esophagus was otherwise normal 2. Food residue (greenish ) covering the entire stomach, No old or new blood,PEG site appeared clean and no evidence of bleeding. 4. Normal duodenal mucosa in the bulb and second portion of the duodenum 5. Retroflexed views revealed Residual food covering the area RECOMMENDATIONS: 1. No treatment 2. Begin today PATIENT CONDITION: stable DISPOSITION: Observation REPEAT EXAM: NONE Aurea Pastrana MD eSigned: Aurea Pastrana MD 05/09/2017 9:04 AM cc: PATIENT NAME: Erik Jeffrey MR#: [id number]
[2017-05-09] MEDS: metFORMIN HCL 500 MG TAB PEG SCH ×2 (11:02→19:01)
[2017-05-09] MEDS: FAMOTIDINE 20 MG TAB NG SCH ×2 (11:02→21:28)
[2017-05-09] MEDS: BACITRACIN TOP OINT 15 GM TUBE TOPICAL SCH ×2 (11:02→21:29)
[2017-05-09] MEDS: levETIRAcetam 500 MG/5 ML UDC NG SCH ×2 (11:02→21:29)
[2017-05-09] MEDS: COLLAGENASE OINT 30 GM TUBE TOPICAL SCH (11:03)
[2017-05-09] MEDS: ARTIFICIAL TEARS OPTH OINT 3.5 APPLIC/3.5 GM TUBO EACH EYE SCH ×2 (11:03→21:30)
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
[2017-05-10] VITALS: BP 141/80; PULSE 115; RESP 17; TEMP 96.9; O2SAT 98
[2017-05-10] MEDS: INSULIN ASPART SUPPLEMENTAL SCALE SQ SCH ×3 (06:00→17:34)
[2017-05-10] MEDS: PHENYTOIN SUSP 100 MG/4 ML CUP NG SCH ×3 (06:06→21:03)
[2017-05-10] MEDS: AMANTADINE HCL 100 MG CAP NG SCH (06:06)
[2017-05-10 08:00] VITALS: BP 132/83; PULSE 109; RESP 16; TEMP 97; O2SAT 96
[2017-05-10] MEDS: CHLORHEXIDINE GLUCONATE 0.12% 15 ML CUP SWISH-SPIT SCH ×2 (09:00→21:03)
[2017-05-10] MEDS: DOCUSATE SODIUM 50 MG/SENNA 8.6 MG TAB NG SCH ×2 (09:00→21:00)
[2017-05-10] MEDS: COLLAGENASE OINT 30 GM TUBE TOPICAL SCH (09:00)
[2017-05-10] MEDS: levETIRAcetam 500 MG/5 ML UDC NG SCH ×2 (09:01→21:03)
[2017-05-10] MEDS: INSULIN DETEMIR 100 UNITS/ML VIAL SQ SCH ×2 (09:02→21:00)
[2017-05-10] MEDS: metFORMIN HCL 500 MG TAB PEG SCH ×2 (09:02→17:34)
[2017-05-10] MEDS: ARTIFICIAL TEARS OPTH OINT 3.5 APPLIC/3.5 GM TUBO EACH EYE SCH ×2 (09:02→21:00)
[2017-05-10] MEDS: FAMOTIDINE 20 MG TAB NG SCH ×2 (09:02→21:03)
[2017-05-10] MEDS: BACITRACIN TOP OINT 15 GM TUBE TOPICAL SCH ×2 (09:03→21:00)
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
[2017-05-10 12:00] VITALS: BP 140/86; PULSE 106; RESP 18; TEMP 97.3; O2SAT 99
[2017-05-10] MEDS: ENOXAPARIN SODIUM 30 MG/0.3 ML SYRINGE SQ SCH (14:30)
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
[2017-05-10 16:00] VITALS: BP 129/77; PULSE 111; RESP 16; TEMP 96.5; O2SAT 95
[2017-05-10 20:00] VITALS: BP 129/76; PULSE 110; RESP 18; TEMP 97.6; O2SAT 95
[2017-05-10] MEDS ORDERED: FAMO20TA2 NG (22:09)
[2017-05-10] MEDS ORDERED: SENNSYP NG (22:09)
[2017-05-11] VITALS: BP 134/86; PULSE 109; RESP 18; TEMP 98.4; O2SAT 97
[2017-05-11] MEDS: ENOXAPARIN SODIUM 30 MG/0.3 ML SYRINGE SQ SCH ×2 (00:37→13:53)
[2017-05-11 04:00] VITALS: BP 130/83; PULSE 108; RESP 18; TEMP 97.5; O2SAT 97
[2017-05-11] MEDS: PHENYTOIN SUSP 100 MG/4 ML CUP NG SCH ×2 (05:04→13:53)
[2017-05-11] MEDS: AMANTADINE HCL 100 MG CAP NG SCH (05:04)
[2017-05-11] MEDS: INSULIN ASPART SUPPLEMENTAL SCALE SQ SCH ×3 (05:13→12:00)
[2017-05-11 08:00] VITALS: BP 145/94; PULSE 106; RESP 16; TEMP 98.1; O2SAT 95
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
[2017-05-11] MEDS: DOCUSATE SODIUM 50 MG/SENNA 8.6 MG TAB NG SCH (09:00)
[2017-05-11] MEDS: CHLORHEXIDINE GLUCONATE 0.12% 15 ML CUP SWISH-SPIT SCH (09:00)
[2017-05-11] MEDS: ARTIFICIAL TEARS OPTH OINT 3.5 APPLIC/3.5 GM TUBO EACH EYE SCH (09:00)
[2017-05-11] MEDS: FAMOTIDINE 20 MG TAB NG SCH (09:12)
[2017-05-11] MEDS: metFORMIN HCL 500 MG TAB PEG SCH (09:12)
[2017-05-11] MEDS: levETIRAcetam 500 MG/5 ML UDC NG SCH (09:13)
[2017-05-11] MEDS: INSULIN DETEMIR 100 UNITS/ML VIAL SQ SCH (09:13)
[2017-05-11] MEDS: BACITRACIN TOP OINT 15 GM TUBE TOPICAL SCH (09:14)
[2017-05-11] MEDS: COLLAGENASE OINT 30 GM TUBE TOPICAL SCH (09:14)
[2017-05-11 12:00] VITALS: BP 130/86; PULSE 102; RESP 16; TEMP 98; O2SAT 96
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
[2017-05-11 16:00] VITALS: BP 133/85; PULSE 105; RESP 16; TEMP 97.2; O2SAT 96
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
== END 2017-05-11 18:22 | DRG 3 ==
LOC: NEPI 05:17 → NEDA 05:57 → EDBD 05:57 → N03A 09:49 → N07A 05-02 19:00
PROVIDERS: ADMIT Surgery Trauma Surgery; ATTEND Surgery Trauma Surgery
PROC: 0JQ00ZZ Repair Scalp Subcutaneous Tissue and Fascia, Open Approach (ICD-10-PCS; 2017-04-18)
PROC: 0KNC0ZZ Release Right Hand Muscle, Open Approach (ICD-10-PCS; 2017-04-18)
PROC: 0KNC0ZZ Release Right Hand Muscle, Open Approach (ICD-10-PCS; 2017-04-18)
PROC: 01N50ZZ Release Median Nerve, Open Approach (ICD-10-PCS; 2017-04-18)
PROC: 0PSP34Z Reposition Right Metacarpal with Internal Fixation Device, Percutaneous Approach (ICD-10-PCS; 2017-04-18)
PROC: 4A103BD Monitoring of Intracranial Pressure, Percutaneous Approach (ICD-10-PCS; 2017-04-18)
PROC: 0HCDXZZ Extirpation of Matter from Right Lower Arm Skin, External Approach (ICD-10-PCS; 2017-04-18)
PROC: 0W9B30Z Drainage of Left Pleural Cavity with Drainage Device, Percutaneous Approach (ICD-10-PCS; 2017-04-18)
PROC: 0BH17EZ Insertion of Endotracheal Airway into Trachea, Via Natural or Artificial Opening (ICD-10-PCS; 2017-04-18)
PROC: 06HM33Z Insertion of Infusion Device into Right Femoral Vein, Percutaneous Approach (ICD-10-PCS; 2017-04-18)
PROC: 009600Z Drainage of Cerebral Ventricle with Drainage Device, Open Approach (ICD-10-PCS; principal; 2017-04-18 06:48)
PROC: 5A1955Z Respiratory Ventilation, Greater than 96 Consecutive Hours (ICD-10-PCS; 2017-04-18 21:39)
PROC: 0JD00ZZ Extraction of Scalp Subcutaneous Tissue and Fascia, Open Approach (ICD-10-PCS; 2017-04-18 21:39)
PROC: 02HV33Z Insertion of Infusion Device into Superior Vena Cava, Percutaneous Approach (ICD-10-PCS; 2017-04-19)
PROC: 0B110F4 Bypass Trachea to Cutaneous with Tracheostomy Device, Open Approach (ICD-10-PCS; 2017-04-24)
PROC: 0BJ08ZZ Inspection of Tracheobronchial Tree, Via Natural or Artificial Opening Endoscopic (ICD-10-PCS; 2017-04-24)
PROC: 0PW Upper Bones, Revision (ICD-10-PCS; 2017-04-26)
PROC: 0HDFXZZ Extraction of Right Hand Skin, External Approach (ICD-10-PCS; 2017-04-26)
PROC: 0DH63UZ Insertion of Feeding Device into Stomach, Percutaneous Approach (ICD-10-PCS; 2017-04-27)
PROC: 0DJ08ZZ Inspection of Upper Intestinal Tract, Via Natural or Artificial Opening Endoscopic (ICD-10-PCS; 2017-04-27)
PROC: 0D568ZZ Destruction of Stomach, Via Natural or Artificial Opening Endoscopic (ICD-10-PCS; 2017-05-01)
PROC: 0DJ08ZZ Inspection of Upper Intestinal Tract, Via Natural or Artificial Opening Endoscopic (ICD-10-PCS; 2017-05-09)
DX: S06.32 Contusion and laceration of left cerebrum (principal); J15.6 Pneumonia due to other Gram-negative bacteria; G93.40 Encephalopathy, unspecified; A41.9 Sepsis, unspecified organism; S27.1XXA Traumatic hemothorax, initial encounter; T79.A11A Traumatic compartment syndrome of right upper extremity, initial encounter; J96.01 Acute respiratory failure with hypoxia; J96.02 Acute respiratory failure with hypercapnia; S01.02XA Laceration with foreign body of scalp, initial encounter; J98.11 Atelectasis; G40.89 Other seizures; K56.7 Ileus, unspecified; S27.322A Contusion of lung, bilateral, initial encounter; Z99.11 Dependence on respirator [ventilator] status; E87.0 Hyperosmolality and hypernatremia; K92.2 Gastrointestinal hemorrhage, unspecified; R13.10 Dysphagia, unspecified; G56.01 Carpal tunnel syndrome, right upper limb; S62.291A Other fracture of first metacarpal bone, right hand, initial encounter for closed fracture; E11.65 Type 2 diabetes mellitus with hyperglycemia; S61.521A Laceration with foreign body of right wrist, initial encounter; S61.441A Puncture wound with foreign body of right hand, initial encounter; I10 Essential (primary) hypertension; S42.002A Fracture of unspecified part of left clavicle, initial encounter for closed fracture; E78.5 Hyperlipidemia, unspecified; H91.90 Unspecified hearing loss, unspecified ear; R40.2431 Glasgow coma scale score 3-8, in the field [EMT or ambulance]; K94.21 Gastrostomy hemorrhage; K29.70 Gastritis, unspecified, without bleeding; R19.7 Diarrhea, unspecified; R33.9 Retention of urine, unspecified; Z23 Encounter for immunization; Z78.1 Physical restraint status; V48.5XXA Car driver injured in noncollision transport accident in traffic accident, initial encounter; Y92.410 Unspecified street and highway as the place of occurrence of the external cause
CPT/HCPCS: 31500; 31600; 31624; 32551; 36430; 36556; 36600; 51702; 61210; 70450; 70496; 70498; 71010; 71260; 72125; 72128; 72131; 72170; 73100; 73120; 74000; 74177; 76000; 76937; 80048; 80053; 80185; 80307; 81001; 82010; 82272; 82435; 82565; 82805; 82947; 82948; 83036; 83605; 83735; 83930; 84100; 84132; 84155; 84295; 84520; 85007; 85014; 85018; 85025; 85027; 85384; 85610; 85730; 86850; 86900; 86901; 86920; 87040; 87070; 87077; 87086; 87186; 87205; 87641; 88300; 90471; 90686; 94002; 94003; 94640; 94664; 94770; 95819; 96374; 96375; A7520; A7521; J0131; J0690; J0692; J1165; J1650; J1815; J1817; J1940; J1953; J2250; J2270; J2370; J2543; J2765; J3010; J3230; J3370; J3480; J7030; J7040; J7050; J7060; J7120; L0150; L0172; L3808; P9016; Q2009; Q2038; Q9967